=== PATIENT | female | born 1960 | race Caucasian/White ===

== ENCOUNTER 2019-06-13 14:15 | Emergency (ER) | payer MEDICARE, MEDICAID, SELFPAY ==
[2019-06-13 14:15] VITALS: BP 136/74; PULSE 94; RESP 18; TEMP 36.9; O2SAT 98
--- NOTE | 2019-06-13 14:22 | ED.GENADULT ---
HPI - General Adult General Chief complaint: Dizziness Stated complaint: Dizzy Time Seen by Provider: 06/13/19 14:38 Source: patient Mode of arrival: ambulatory Limitations: no limitations History of Present Illness HPI narrative: 58-year-old female patient [facility] with complaints of dizziness for the past 5 days. Patient states that started abruptly when she woke up one morning that she went to go and get out of bed and immediately felt very dizzy. Patient states that she tried to stand up and could not stand up and actually fell back onto her back into the bed. Patient states she actually had to crawl downstairs and call her mother to come and help her get. Patient denies any chest pain at this time but states she has had a little bit of shortness of breath. Patient states that prior to the dizziness starting she was fighting an ear infection and some kind of viral illness that happened a week prior to that has since resolved. Patient states that she also does have a history of bipolar that she is medicated for. Patient states May is usually a hard time for her because it is her daughter's birthday who about 2-1/2 years ago from an overdose. Patient states that she does get pretty depressed in the month of May. Patient denies any other stressors in her life at this time. Patient states that when her parents came over to help her about 5 days ago her dad was told her that this was most likely vertigo and told her to take some motion sickness medication [id number] which she has been taking and states it has not helped at all. Patient denies any vision changes but states that she does feel little bit weaker on her left side than she does on her right side. Related Data Home Medications Medication Instructions Recorded Confirmed atorvastatin 40 mg PO DAILY 06/13/19 06/13/19 bupropion HCl 150 mg PO DAILY 06/13/19 06/13/19 diazepam 5 mg PO BID 06/13/19 06/13/19 divalproex 500 mg PO DAILY 06/13/19 06/13/19 metformin 500 mg PO DAILY 06/13/19 06/13/19 quetiapine 400 mg PO DAILY 06/13/19 06/13/19 zolpidem 10 mg PO DAILY 06/13/19 06/13/19 Allergies Allergy/AdvReac Type Severity Reaction Status Date / Time tramadol Allergy Unknown VOMITING Verified 06/13/19 14:57 Review of Systems Review of Systems: Narrative: CONSTITUTIONAL: Denies fever, chills, or sweats. EYES: Denies visual changes, redness, or discharge. ENT: Denies rhinorrhea, congestion, sore throat, or otalgia. CARDIOVASCULAR: Denies chest pain, palpitations, or edema. RESPIRATORY: Denies cough, positive dyspnea. GASTROINTESTINAL: Denies abdominal pain, nausea, vomiting, or diarrhea. GENITOURINARY: Denies dysuria or hematuria. SKIN: Denies rash or itching. MUSCULOSKELETAL: Denies back pain, joint pain, or myalgia. NEUROLOGIC: Denies headache, numbness, positive weakness to lower extremities, and dizziness. PSYCHIATRIC: Denies anxiety or depression. [facility] Past Medical History Medical History (Updated 06/13/19 @ 14:58 by CECILY Richardson) Anxiety Arthritis Asthma Bipolar 1 disorder Depression GERD (gastroesophageal reflux disease) Hypercholesterolemia Hypertension Liver disease Melena Myocardial infarction 2008 with stent Pneumonia Type 2 diabetes mellitus Surgical History Surgical History (Updated 06/13/19 @ 14:25 by CECILY Richardson) H/O: hysterectomy History of orthopedic surgery Back x2, cervical Family History Family History Mother Patient's mother is in good health Father Patient's father is in good health Social History Social History Smoking status: Former smoker Smoking end date: 05/18/12 Alcohol intake: never Comments At the time of my signature I agree with nursing past medical history, surgical, social, and family history. There is no relevant family history pertinent
--- NOTE | 2019-06-13 14:48 | ECG_ITS ---
Measurements Intervals Celestine Rate: 82 P: 52 NV: 161 QRS: -15 QRSD: 93 T: 79 QT: 381 QTc: 446 Interpretive Statements SINUS RHYTHM DELAYED PRECORDIAL R/S TRANSITION BORDERLINE ST-T WAVE ABNORMALITY- LATERAL LEADS BORDERLINE ECG Electronically Signed On 06-13-2019 15:25:20 [employer] by Brian Man D.O.
[2019-06-13 15:07] VITALS: BP 136/67; PULSE 84; RESP 18; O2SAT 94
--- NOTE | 2019-06-13 15:40 | PC.NURSE ---
1525 awaiting patients daughter to arrive for transport to [facility] ED.
== END 2019-06-13 15:40 | disposition short-term general hospital (02) ==
PROVIDERS: Emergency Provider Nurse Practitioner Family; PCP Internal Medicine
DX: R42 Dizziness and giddiness (principal); F31.9 Bipolar disorder, unspecified; M19.90 Unspecified osteoarthritis, unspecified site; K21.9 Gastro-esophageal reflux disease without esophagitis; E78.00 Pure hypercholesterolemia, unspecified; I10 Essential (primary) hypertension; I25.2 Old myocardial infarction; I25.10 Atherosclerotic heart disease of native coronary artery without angina pectoris; Z95.5 Presence of coronary angioplasty implant and graft; E11.9 Type 2 diabetes mellitus without complications
CPT/HCPCS: 93005; 99213; G0463

== ENCOUNTER 2019-11-04 09:44 | Outpatient (CLI) | payer MEDICARE, MEDICAID, SELFPAY ==
[2019-11-04 10:21] LABS: Basophils Percent Auto 0.4 % (0.2-1.2); Eosinophils Absolute Auto 0.1 K/mm3 (0-0.3); Eosinophils Percent Auto 1.5 % (0-4.4); Hematocrit 39.6 % (37.0-47.0); Hemoglobin 12.4 g/dL (12.0-15.0); Immature Granulocyte Absolute 0.05 K/mm3 (0.00-0.031); Immature Granulocyte Percent A 0.7 % (0-0.5); Lymphocytes Percent Auto 40.8 % (18.3-44.2); Mean Corpuscular HGB Conc 31.3 g/dl (32-36); Mean Corpuscular Hemoglobin 28.1 pg (26-34); Mean Corpuscular Volume 89.6 fl (80-100); Mean Platelet Volume 11.2 fl (7.4-10.4); Monocytes Absolute Auto 0.7 K/mm3 (0.1-0.6); Neutrophils Absolute Auto 3.3 K/mm3 (1.3-6.7); Neutrophils Percent Auto 46.6 % (45.5-73.1); Nucleated Red Blood Cells Perc 0.3 % (0.0-0.2); Platelet Count Result 249 k/mm3 (150-375); Red Blood Count 4.42 M/mm3 (4.2-5.4); Red Cell Distribution Width 14.3 % (11.5-14.5); White Blood Count 7.1 K/mm3 (4.5-10.0)
[2019-11-04 10:27] LABS: Alanine Aminotransferase 37 U/L (4-35); Albumin Level 4.4 g/dL (3.5-5.1); Alkaline Phosphatase 126 U/L (38-126); Aspartate Amino Transferase 47 U/L (14-36); Bilirubin,Total 0.3 mg/dL (0.2-1.3); Blood Urea Nitrogen 11 mg/dL (7-17); Calcium 9.7 mg/dL (8.4-10.2); Carbon Dioxide 32 mmol/L (22-30); Chloride 99 mmol/L (98-107); Estimated Glomerular Filt Rate > 60; Glucose 255 mg/dL (65-105); Potassium 4.4 mmol/L (3.4-5.0); Sodium 133 mmol/L (137-145)
== END 2019-11-04 09:45 | disposition home or self-care (01) ==
LOC: ANHLAB 09:46
PROVIDERS: PCP Internal Medicine; Visit Provider Clinical Nurse Specialist
DX: R74.8 Abnormal levels of other serum enzymes (principal)
CPT/HCPCS: 36415; 80053; 85025

== ENCOUNTER 2020-10-16 16:58 | Emergency (ER) | payer MEDICARE, MEDICAID, SELFPAY ==
[2020-10-16 17:13] VITALS: BP 129/73; PULSE 100; RESP 16; TEMP 36.6; O2SAT 99
--- NOTE | 2020-10-16 17:56 | ED.SKABFB ---
HPI - Skin/Abscess/Foreign Bdy General Chief complaint: Skin/Abscess/Foreign Body Stated complaint: injury Time Seen by Provider: 10/16/20 17:19 Source: patient and RN notes reviewed Mode of arrival: ambulatory Limitations: no limitations History of Present Illness HPI narrative: Patient presents today with a 1 week history of a boil to her right buttock. States she does have a history of boils, but has never had to have one lanced in the past. No history of MRSA. History of diabetes. Currently rates her pain 8/10 and has tried no [id number] interventions prior to arrival. MD complaint: abscess/boil Related Data Home Medications Medication Instructions Recorded Confirmed atorvastatin 40 mg PO DAILY 06/13/19 10/16/20 bupropion HCl 150 mg PO DAILY 06/13/19 10/16/20 diazepam 5 mg PO BID 06/13/19 10/16/20 divalproex 1,000 mg PO HS 06/13/19 10/16/20 zolpidem 10 mg PO DAILY 06/13/19 10/16/20 aspirin 325 mg tablet 325 mg PO DAILY 11/04/19 10/16/20 quetiapine 600 mg PO HS 10/16/20 10/16/20 Allergies Allergy/AdvReac Type Severity Reaction Status Date / Time tramadol Allergy Unknown VOMITING Verified 10/16/20 17:29 Review of Systems Review of Systems: Narrative: CONSTITUTIONAL: Denies body aches, fever, chills, or sweats. EYES: Denies visual changes, redness, or discharge. ENT: Denies rhinorrhea, congestion, sore throat, or otalgia. CARDIOVASCULAR: Denies chest pain, palpitations, or edema. RESPIRATORY: Denies cough or dyspnea. GASTROINTESTINAL: Denies abdominal pain, nausea, vomiting, or diarrhea. GENITOURINARY: Denies dysuria or hematuria. SKIN: Denies rash, itching, or wounds.+ Abscess to right buttock MUSCULOSKELETAL: Denies back pain, joint pain, or myalgia. NEUROLOGIC: Denies headache, numbness, tingling, or weakness. PSYCH: Denies depression or anxiety. [facility] Past Medical History Medical History Anxiety Arthritis Asthma Bipolar 1 disorder Coronary artery disease Depression GERD (gastroesophageal reflux disease) Hypercholesterolemia Hypertension Liver disease Measles Melena Mumps Myocardial infarction 2008 with stent Osteoarthritis Pneumonia Type 2 diabetes mellitus Surgical History Surgical History H/O: section x3 H/O: hysterectomy History of knee surgery History of orthopedic surgery Back x2, cervical Family History Family History Mother Patient's mother is in good health Father Patient's father is in good health Social History Social History Smoking status: Current some day smoker Tobacco type: smokeless tobacco Smoking end date: 05/18/12 Alcohol intake: never Gender identity (if verbalized by the patient): Female Comments At time of signature, I have reviewed and agree with nursing past medical, surgical, social and family history unless otherwise noted. Please see nursing chart for further information. There is no relevant family history pertinent to the presenting complaint Exam Narrative: Exam Narrative: GENERAL: Well-appearing, well-nourished, and in no acute distress. HEAD: Normocephalic, atraumatic. EYES: EOMI. No redness or drainage. Conjunctivae normal. ENT: Mucous membranes pink and moist. NECK: Normal AROM. CHEST: No respiratory distress. EXTREMITIES: Normal range of motion. No edema. SKIN: Warm, dry, no rash. Capillary refill normal. Normal skin turgor. 4 x 3 cm fluctuant abscess to the right medial buttock. There is a pinpoint hole draining purulent discharge. Area is tender to palpation. NEURO: No focal deficits. Alert and oriented x3. Gait steady. PSYCH: Normal affect. No signs of depression or anxiety. Course Vital Signs Vital signs: Vital Signs Temperature 97.9 F 10/16/20 17:13 Pulse
== END 2020-10-16 18:08 | disposition home or self-care (01) ==
PROVIDERS: Emergency Provider Nurse Practitioner
DX: L02.31 Cutaneous abscess of buttock (principal); F17.200 Nicotine dependence, unspecified, uncomplicated; F41.9 Anxiety disorder, unspecified; F32.9 Major depressive disorder, single episode, unspecified; M19.90 Unspecified osteoarthritis, unspecified site; J45.909 Unspecified asthma, uncomplicated; I25.10 Atherosclerotic heart disease of native coronary artery without angina pectoris; K21.9 Gastro-esophageal reflux disease without esophagitis; E78.00 Pure hypercholesterolemia, unspecified; I10 Essential (primary) hypertension; I25.2 Old myocardial infarction; Z95.5 Presence of coronary angioplasty implant and graft; E11.9 Type 2 diabetes mellitus without complications
CPT/HCPCS: 10061; 87070; 87075; 87076; 87205; 99213; G0463

== ENCOUNTER 2020-10-18 16:54 | Emergency (ER) | payer MEDICARE, MEDICAID, SELFPAY ==
[2020-10-18 17:03] VITALS: BP 143/77; PULSE 85; RESP 16; TEMP 36.9; O2SAT 97
--- NOTE | 2020-10-18 17:14 | PC.NURSE ---
unable to urinate at this time. has water and drinking. given spec.collection supplies and will use call button to inform staff when able to obtain ua spec.
--- NOTE | 2020-10-18 17:38 | ED.GENADULT ---
HPI - General Adult General Chief complaint: Urogenital-Female Stated complaint: UTI Time Seen by Provider: 10/18/20 17:39 Source: patient and RN notes reviewed Mode of arrival: ambulatory Limitations: no limitations History of Present Illness HPI narrative: 59-year-old female presents with urinary complaints for 1 day. Jagruti reports increasing symptoms throughout the day. Dysuria consist of bilateral flank pain, pressure, burning, frequency, and urgency.? No treatment.? History of UTIS. Denies E-coli. Denies fever or chills. No significant pelvic pain. No vaginal discharge.? No concerns for STDs. Exacerbating factors urinating.? Denies hematuria or vaginal bleeding. LMP postmenopausal. Denies nausea, vomiting, and abdominal pain.? Tolerating liquids well.? Remains active. The patient reports she have not been diagnosed with COVID-19. The patient reports she received 2 [employer] COVID-19 vaccines. The patient reports she is not waiting for the results of a COVID-19 lab test. The patient reports she do not have weakness or fatigue. The patient reports she do not have a new or worsening cough or shortness of breath. Denies chest pain. The patient reports she do not have any rhinorrhea, congestion, sore throat, loss of taste or smell, and diarrhea. Denies recent traveling. Denies concerns for COVID-19 or exposures. At this time, patient is not suspected of having COVID-19. Some parts of this dictation were generated by voice recognition software and may contain typographical and/or grammatical inaccuracies. Related Data Home Medications Medication Instructions Recorded Confirmed atorvastatin 40 mg PO DAILY 06/13/19 10/16/20 bupropion HCl 150 mg PO DAILY 06/13/19 10/16/20 diazepam 5 mg PO BID 06/13/19 10/16/20 divalproex 1,000 mg PO HS 06/13/19 10/16/20 zolpidem 10 mg PO DAILY 06/13/19 10/16/20 aspirin 325 mg tablet 325 mg PO DAILY 11/04/19 10/16/20 quetiapine 600 mg PO HS 10/16/20 10/16/20 clindamycin HCl 10/18/20 metoprolol tartrate 10/18/20 Allergies Allergy/AdvReac Type Severity Reaction Status Date / Time tramadol Allergy Unknown VOMITING Verified 10/16/20 17:29 Review of Systems Review of Systems: Narrative: CONSTITUTIONAL: Denies fever, chills, sweats. EYES: Denies visual changes, redness, discharge. ENT: Denies rhinorrhea, congestion, sore throat, otalgia. CARDIOVASCULAR: Denies chest pain, palpitations, edema. RESPIRATORY: Denies dyspnea, wheezing, cough. GASTROINTESTINAL: Denies abdominal pain, nausea, vomiting, diarrhea. GENITOURINARY: Complains of dysuria (bilateral flank pain, pressure, burning, frequency, and urgency). Denies hematuria, abnormal discharge. SKIN: Denies rash or itching. MUSCULOSKELETAL: Denies acute back pain, joint pain, or myalgia. NEUROLOGIC: Denies numbness or focal weakness. PSYCHIATRIC: Denies anxiety or depression. All systems reviewed & are unremarkable except as noted in HPI and below. [facility] Past Medical History Medical History Anxiety Arthritis Asthma Bipolar 1 disorder Coronary artery disease Depression GERD (gastroesophageal reflux disease) Hypercholesterolemia Hypertension Liver disease Measles Melena Mumps Myocardial infarction 2008 with stent Osteoarthritis Pneumonia Type 2 diabetes mellitus Surgical History Surgical History H/O: section x3 H/O: hysterectomy History of knee surgery History of orthopedic surgery Back x2, cervical Family History Family History Mother Patient's mother is in good health Father Patient's father is in good health Social History Social History Smoking status: Current some day smoker Tobacco type: smokeless tobacco Smoking end date: 05/18/12 Alcohol intake:
--- NOTE | 2020-10-18 18:19 | PC.NURSE ---
cont. to be unable to urinate.
== END 2020-10-18 18:34 | disposition home or self-care (01) ==
PROVIDERS: Emergency Provider Nurse Practitioner Family; PCP Internal Medicine
DX: R30.0 Dysuria (principal); F17.200 Nicotine dependence, unspecified, uncomplicated; M19.90 Unspecified osteoarthritis, unspecified site; I25.10 Atherosclerotic heart disease of native coronary artery without angina pectoris; K21.9 Gastro-esophageal reflux disease without esophagitis; E78.00 Pure hypercholesterolemia, unspecified; I10 Essential (primary) hypertension; I25.2 Old myocardial infarction; E11.9 Type 2 diabetes mellitus without complications; F41.9 Anxiety disorder, unspecified; F31.9 Bipolar disorder, unspecified
CPT/HCPCS: 81003; 87086; 99213; G0463

== ENCOUNTER 2021-10-29 16:33 | Emergency (ER) | payer MEDICARE, SELFPAY ==
--- NOTE | ~2021-10-29 | XR_ITS ---
EXAMINATION: XR chest 2V DATE: 10/29/2021 17:09 INDICATION: 5 days of cough. Coarse bilateral breath sounds. TECHNIQUE: PA and lateral views of the chest were obtained. COMPARISON: Chest radiograph dated 03/05/2018 FINDINGS: The lungs remain clear with no focal airspace opacities, pulmonary edema, pleural effusion or pneumot horax. Mild cardiomegaly. The central silhouette is normal. Lower cervical anterior spinal fusion wit h interbody bone graft cages and anterior plate and screw fixation. Mild thoracic levocurvature with mild spondylosis. IMPRESSION: 1. Mild cardiomegaly. No acute cardiopulmonary disease. Reviewed, dictated and finalized at location A.
[2021-10-29 16:38] VITALS: BP 152/75; PULSE 86; RESP 16; TEMP 36.2; O2SAT 100
--- NOTE | 2021-10-29 16:53 | ED.URI ---
HPI - URI/Sore Throat General Chief Complaint: Upper Respiratory Infection Stated Complaint: cough/cp/sore throat Time Seen by Provider: 10/29/21 16:54 Source: patient, RN notes reviewed and old records reviewed Mode of arrival: ambulatory Limitations: no limitations History of Present Illness HPI Narrative: 60-year-old female presents to the [facility] with complaints of cough since . Has taken ibuprofen for the chest wall pain. No other treatment, states she does not know what she can take due her to her diabetes. Related Data Home Medications Medication Instructions Recorded Confirmed atorvastatin 40 mg tablet 40 mg PO DAILY 06/13/19 11/06/20 bupropion HCl 150 mg 24 hr tablet, 150 mg PO DAILY 06/13/19 11/06/20 extended release diazepam 5 mg tablet 5 mg PO BID 06/13/19 11/06/20 divalproex 500 mg tablet,extended 1,000 mg PO HS 06/13/19 11/06/20 release 24 hr zolpidem 10 mg tablet 10 mg PO DAILY 06/13/19 11/06/20 aspirin 325 mg tablet 325 mg PO DAILY 11/04/19 11/06/20 quetiapine 300 mg tablet 600 mg PO HS 10/16/20 11/06/20 metoprolol tartrate 25 mg tablet 10/18/20 11/06/20 evolocumab 140 mg/mL subcutaneous syr subcut 10/29/21 syringe (Repatha Syringe) Allergies Allergy/AdvReac Type Severity Reaction Status Date / Time tramadol Allergy Unknown VOMITING Verified 10/16/20 17:29 Review of Systems Review of Systems: All systems reviewed & are unremarkable except as noted in HPI and below Constitutional: Constitutional: Reports no additional constitutional complaints, Denies chills and Denies fever(s) Eyes: Eyes: Reports no additional eye complaints ENT: Reports system reviewed and no additional complaints, except as documented Cardiovascular: Cardiovascular: Reports no additional cardiovascular complaints Respiratory: Respiratory: Reports as per HPI, Reports chest congestion, Reports cough and Reports dyspnea Gastrointestinal: Gastrointestinal: Reports no additional gastrointestinal complaints Musculoskeletal: Musculoskeletal: Reports no additional musculoskeletal complaints Integumentary/Breasts: Skin/Breast: Reports system reviewed and no additional complaints, except as docu Neurologic: Reports system reviewed and no additional complaints, except as documented Psychiatric: Psychiatric: Reports no additional psychiatric complaints Allergic/Immunologic: Allergic/Immunologic: Reports no additional allergic/immunologic complaints PMFSH Past Medical History Medical History Anxiety Arthritis Asthma Bipolar 1 disorder Coronary artery disease Depression GERD (gastroesophageal reflux disease) Hypercholesterolemia Hypertension Liver disease Measles Melena Mumps Myocardial infarction 2009 with stent Obesity Osteoarthritis Pneumonia Type 2 diabetes mellitus Surgical History Surgical History H/O: section x3 H/O: hysterectomy History of knee surgery History of orthopedic surgery Back x2, cervical Family History Family History Mother Patient's mother is in good health Father Patient's father is in good health Social History Social History Smoking status: Never smoker Tobacco type: smokeless tobacco Smoking end date: 05/18/12 Alcohol intake: never Gender identity (if verbalized by the patient): Female Comments At the time of my signature, I reviewed and agree with the nursing past medical, surgical, social, and family history. There is no relevant family history pertinent to the patient complaint. Exam Const: General: healthy appearing, no acute distress and alert Nutritional Appearance: well nourished and obese Orientation/consciousness: patient oriented x3 Limitations: no limitations HENMT: Head: normal to inspection Ears: externa
== END 2021-10-29 17:38 | disposition home or self-care (01) ==
PROVIDERS: Emergency Provider Nurse Practitioner; PCP Internal Medicine
DX: J40 Bronchitis, not specified as acute or chronic (principal); M19.90 Unspecified osteoarthritis, unspecified site; I25.10 Atherosclerotic heart disease of native coronary artery without angina pectoris; K21.9 Gastro-esophageal reflux disease without esophagitis; E78.00 Pure hypercholesterolemia, unspecified; I10 Essential (primary) hypertension; I25.2 Old myocardial infarction; E11.9 Type 2 diabetes mellitus without complications
CPT/HCPCS: 71046; 99213; G0463

== ENCOUNTER 2022-01-09 12:24 | Outpatient (CLI) | payer MEDICARE, MEDICAID, SELFPAY ==
[2022-01-09 18:42] LABS: Basophils Percent Auto 0.3 % (0.2-1.2); Eosinophils Absolute Auto 0.1 K/mm3 (0-0.3); Eosinophils Percent Auto 1.1 % (0-4.4); Hematocrit 37.2 % (37.0-47.0); Hemoglobin 11.4 g/dL (12.0-15.0); Immature Granulocyte Absolute 0.03 K/mm3 (0.00-0.031); Immature Granulocyte Percent A 0.5 % (0-0.5); Lymphocytes Absolute Auto 2.24 K/mm3 (0.9-3.2); Lymphocytes Percent Auto 34.7 % (18.3-44.2); Mean Corpuscular HGB Conc 30.6 g/dl (32-36); Mean Corpuscular Hemoglobin 27.3 pg (26-34); Mean Corpuscular Volume 89.2 fl (80-100); Mean Platelet Volume 11.6 fl (7.4-10.4); Monocytes Absolute Auto 0.5 K/mm3 (0.1-0.6); Neutrophils Absolute Auto 3.6 K/mm3 (1.3-6.7); Neutrophils Percent Auto 55.4 % (45.5-73.1); Platelet Count Result 246 k/mm3 (150-375); Red Blood Count 4.17 M/mm3 (4.2-5.4); White Blood Count 6.5 K/mm3 (4.5-10.0)
[2022-01-09 19:00] LABS: Alanine Aminotransferase 49 U/L (6-35); Alkaline Phosphatase 133 U/L (38-126); Anion Gap 11 mmol/L (8-16); Aspartate Amino Transferase 62 U/L (14-36); Bilirubin,Total 0.2 mg/dL (0.2-1.3); Blood Urea Nitrogen 8 mg/dL (7-17); Calcium 9.1 mg/dL (8.4-10.2); Carbon Dioxide 28 mmol/L (22-30); Chloride 100 mmol/L (98-107); Estimated Glomerular Filt Rate > 60; Glucose 213 mg/dL (65-110); Potassium 4.3 mmol/L (3.4-5.0); Sodium 139 mmol/L (137-145)
[2022-01-09 19:39] LABS: Hemoglobin A1C 7.2 % (<5.7)
== END 2022-01-09 12:25 | disposition home or self-care (01) ==
PROVIDERS: PCP Internal Medicine; Visit Provider Nurse Practitioner
DX: E11.9 Type 2 diabetes mellitus without complications (principal)
CPT/HCPCS: 36415; 80053; 83036; 85025

== ENCOUNTER 2022-02-10 09:57 | Outpatient (CLI) | payer MEDICARE, MEDICAID, SELFPAY ==
--- NOTE | ~2022-02-10 | NM_ITS ---
EXAMINATION: NM meagan stress w perfusion DATE: 02/10/2022 14:30 CDT INDICATION: Dyspnea TECHNIQUE: Rest images were obtained following intravenous administration of 9 mCi Tc99m tetrofosmin (Myoview). The patient was infused intravenously with Lexiscan (regadenoson). Then, 29 mCi Tc99m tetr ofosmin (Myoview) was administered intravenously, and stress images were obtained. Data was reconstru cted into short axis and horizontal and vertical long axis SPECT images. Gated SPECT images were also obtained. COMPARISON: None. FINDINGS: There is no definite reversible or fixed perfusion abnormality to suggest ischemia or infar ction. There is no segmental wall motion abnormality. Left ventricular ejection fraction measures 8 0%. IMPRESSION: 1. No definite ischemia or infarct. 2. Normal left ventricular ejection fraction measuring 80%. Reviewed, dictated and finalized at location B.
--- NOTE | 2022-02-10 10:37 | EST_ITS ---
Patient Info Name: Jagruti Domingo Age: 61 years : 1960 Gender: Female Ht: 64 in Wt: 185 lbs BSA: 1.98 m2 Exam Date: 02/10/2022 11:14 AM Exam Location: [facility] Stress Patient Status: Outpatient Admit Date: 02/10/2022 Staff Ordering Physician: Kayla Murphy NP Attending Provider: Kayla Murphy NP Exercise Technologist: Geena Walters RDCS Nurse: KAYLA FRIAS NP Exam Type: CA stress meagan w NM Study Info Indications R06.02 - Shortness of breath A regadenoson stress test was performed. Summary 1. Normal sinus rhythm, left axis deviation with minor nonspecific T-wave abnormality. 2. No significant ST segment changes following Lexiscan injection. 3. Clinically and electrocardiographically unremarkable Lexiscan stress test. 4. Myocardial perfusion imaging exam to be dictated by Radiology. Protocol: Lexiscan Stress ECG Details Stage: REST Duration (min): 2 min : 12 sec HR (bpm): 70 SBP (mmHg): 137 DBP (mmHg): 73 Stage: REST Duration (min): 4 min : 36 sec HR (bpm): 69 SBP (mmHg): 137 DBP (mmHg): 73 Stage: STAGE 1 Duration (min): 1 min : 0 sec HR (bpm): 86 SBP (mmHg): 130 DBP (mmHg): 84 Stage: RECOVERY Duration (min): 1 min : 0 sec HR (bpm): 91 SBP (mmHg): 130 DBP (mmHg): 84 Stage: RECOVERY Duration (min): 2 min : 0 sec HR (bpm): 83 SBP (mmHg): 130 DBP (mmHg): 84 Stage: RECOVERY Duration (min): 3 min : 0 sec HR (bpm): 82 SBP (mmHg): 140 DBP (mmHg): 77 Stage: RECOVERY Duration (min): 3 min : 3 sec HR (bpm): 82 SBP (mmHg): 140 DBP (mmHg): 77 Rest HR: 69 bpm Peak HR: 92 bpm Rest Sys BP: 137 mmHg Peak Sys BP: 140 mmHg Max Pred HR: 159 bpm % Max Pred HR: 58 % Target HR: 135 bpm Max RPP: 12,880 bpm*mmHg Termination Reason: Completed protocol Cardiac Symptoms: None Total Time: 1 min : 0 sec Rest Solares BP: 73 mmHg Peak Solares BP: 77 mmHg Total Dose: 0.4 mg Resting ECG Normal sinus rhythm, left axis deviation with minor nonspecific T-wave abnormality. Stress ECG No significant ST segment changes following Lexiscan injection. Arrhythmias None. Report Signatures
== END 2022-02-10 09:58 | disposition home or self-care (01) ==
PROVIDERS: PCP Internal Medicine; Visit Provider Nurse Practitioner
DX: R06.09 Other forms of dyspnea (principal)
CPT/HCPCS: 78452; 93017; A9502; J2785

== ENCOUNTER 2022-06-27 15:08 | Outpatient (CLI) | payer MEDICARE, MEDICAID, SELFPAY ==
[2022-06-27 19:45] LABS: Basophils Percent Auto 0.4 % (0.2-1.2); Eosinophils Absolute Auto 0.1 K/mm3 (0-0.3); Hematocrit 37.5 % (37.0-47.0); Hemoglobin 11.7 g/dL (12.0-15.0); Immature Granulocyte Absolute 0.03 K/mm3 (0.00-0.031); Immature Granulocyte Percent A 0.4 % (0-0.5); Lymphocytes Absolute Auto 2.19 K/mm3 (0.9-3.2); Mean Corpuscular HGB Conc 31.2 g/dl (32-36); Mean Corpuscular Hemoglobin 26.9 pg (26-34); Mean Corpuscular Volume 86.2 fl (80-100); Monocytes Absolute Auto 0.6 K/mm3 (0.1-0.6); Monocytes Percent Auto 7.8 % (2.6-8.5); Neutrophils Absolute Auto 4.2 K/mm3 (1.3-6.7); Neutrophils Percent Auto 59.4 % (45.5-73.1); Platelet Count Result 254 k/mm3 (150-375); Red Blood Count 4.35 M/mm3 (4.2-5.4); Red Cell Distribution Width 14.6 % (11.5-14.5); White Blood Count 7.1 K/mm3 (4.5-10.0)
[2022-06-27 19:51] LABS: Alanine Aminotransferase 33 U/L (6-35); Albumin Level 4.3 g/dL (3.5-5.1); Alkaline Phosphatase 102 U/L (38-126); Anion Gap 9 mmol/L (8-16); Aspartate Amino Transferase 49 U/L (14-36); Bilirubin,Total 0.4 mg/dL (0.2-1.3); Blood Urea Nitrogen 9 mg/dL (7-17); Calcium 9.2 mg/dL (8.4-10.2); Carbon Dioxide 32 mmol/L (22-30); Chloride 97 mmol/L (98-107); Cholesterol 149 mg/dL (0-200); Estimated Glomerular Filt Rate > 60; Glucose 178 mg/dL (65-110); HDL Direct 44 mg/dL; Potassium 4.1 mmol/L (3.4-5.0); Sodium 138 mmol/L (137-145); Triglycerides 226 mg/dL (<150)
[2022-06-27 19:58] LABS: Hemoglobin A1C 8.3 % (<5.7)
[2022-06-27 20:02] LABS: LDL Cholesterol Direct 54 mg/dL
[2022-06-27 22:19] LABS: Vitamin D 25 Hydroxy 23.9 ng/mL
== END 2022-06-27 15:09 | disposition home or self-care (01) ==
LOC: ANHGOSHLAB 15:10
PROVIDERS: PCP Internal Medicine; Visit Provider Nurse Practitioner
DX: E11.9 Type 2 diabetes mellitus without complications (principal); E55.9 Vitamin D deficiency, unspecified
CPT/HCPCS: 36415; 80053; 80061; 82306; 83036; 85025

== ENCOUNTER 2022-06-28 13:30 | Outpatient (CLI) | payer MEDICARE, MEDICAID, SELFPAY ==
--- NOTE | ~2022-06-28 | MR_ITS ---
MRI of the brain Clinical History: Blurry vision Technique: Axial and sagittal T1-weighted images were acquired. These were followed by axial T2-weigh hafsa, diffusion weighted, gradient, and FLAIR images. Coronal thin cut T1-weighted and T2-weighted chin ges were performed through the internal auditory canals. Following intravenous administration of 17 c c MultiHance gadolinium, T1-weighted fat-sat imaging was performed through the brain in the axial and planes. Coronal and axial thin cut T1-weighted postcontrast imaging was also performed through the i nternal auditory canals. Findings: No abnormal signal seen in the brain parenchyma. No acute infarct, intracranial hemorrhage, or mass lesion identified. Ventricles and subarachnoid spaces are unremarkable. Orbits are unremarkable. Paranasal sinuses and m astoid air cells are clear. Major intracranial flow voids appear intact. Sagittal midline structures are intact. No abnormal mass lesion identified at the internal auditory canals or cerebellopontine angle regions. No abnormal postcontrast enhancement identified. IMPRESSION: Unremarkable exam. Reviewed, dictated and finalized at location M. [facility] [employer] IMPRESSION: Unremarkable exam.
== END 2022-06-28 13:31 | disposition home or self-care (01) ==
PROVIDERS: PCP Internal Medicine; Visit Provider Nurse Practitioner
DX: R42 Dizziness and giddiness (principal); H53.8 Other visual disturbances; R51.9 Headache, unspecified
CPT/HCPCS: 70553; A9577

== ENCOUNTER 2022-07-28 09:00 | Outpatient (NON) | payer MEDICARE, MEDICAID, SELFPAY | END 2022-07-28 09:01 | disposition home or self-care (01) | PROVIDERS: PCP Internal Medicine; Visit Provider Internal Medicine Gastroenterology | DX: Z12.11 Encounter for screening for malignant neoplasm of colon (principal) | CPT/HCPCS: 88305 ==

== ENCOUNTER 2022-07-28 11:32 | Day surgery (SDC) | payer MEDICARE, MEDICAID, SELFPAY ==
[2022-07-10 11:23] VITALS: BMI 36.0
[2022-07-18 10:52] VITALS: BMI 33.5
[2022-07-28 12:30] VITALS: BP 135/78; PULSE 98; RESP 20; TEMP 36; O2SAT 92
--- NOTE | 2022-07-28 12:41 | WPDANESEPPF ---
Anes - Initial Pre Proc Eval Procedure: Operation Date: 07/28/22 13:30 Proposed Procedures p Screening Colonoscopy - Wali Urrutia MD Date/Time: 07/28/22 12:41 Surgeon: Wali Urrutia MD Pre Op Diagnosis: Neoplasm Screening Patient Data Age: 61 Gender: F Height: 1.6 m Weight: 90.3 kg Last Vital Signs Temp 36.0 C L 07/28/22 12:30 Pulse 98 07/28/22 12:30 Resp 20 07/28/22 12:30 BP 135/78 07/28/22 12:30 Pulse Ox 92 07/28/22 12:30 O2 Del Method Room Air 07/28/22 12:30 Allergies Allergy/AdvReac Type Severity Reaction Status Date / Time tramadol Allergy Unknown Itching Verified 07/28/22 12:30 Home Medications Medication Instructions Recorded Confirmed Type atorvastatin 40 mg tablet 40 mg PO DAILY 06/13/19 07/28/22 History bupropion HCl 150 mg 24 hr tablet, 150 mg PO DAILY 06/13/19 07/28/22 History extended release diazepam 5 mg tablet 5 mg PO BID 06/13/19 07/28/22 History divalproex 500 mg tablet,extended 1,000 mg PO HS 06/13/19 07/28/22 History release 24 hr zolpidem 10 mg tablet 10 mg PO DAILY 06/13/19 07/28/22 History metoprolol tartrate 25 mg tablet 25 mg PO DAILY 10/18/20 07/28/22 History inhalational spacing device (Space #1 ea 10/29/21 07/28/22 Rx Chamber) albuterol sulfate 90 mcg/actuation 2 puff inhalation QID PRN 12/27/21 07/28/22 Rx aerosol inhaler shortness of breath or wheezing #6.7 grams omeprazole 40 mg capsule,delayed See Rx Instructions .Route 01/09/22 07/28/22 Rx release .COMPLEX #90 caps quetiapine 400 mg tablet 400 mg PO QHS 01/09/22 07/28/22 History aspirin 81 mg tablet,delayed 81 mg PO DAILY 07/08/22 07/28/22 History release (Adult Low Dose Aspirin) mirabegron 25 mg tablet,extended 25 mg PO DAILY #30 tabs 07/08/22 07/28/22 Rx release 24 hr (Myrbetriq) sodium,potassium,mag sulfates 17.5 See Rx Instructions PO .COMPLEX 07/10/22 07/28/22 Rx gram-3.13 gram-1.6 gram oral soln #354 mL (Suprep Bowel Prep Kit) metformin 1,000 mg tablet See Rx Instructions .Route 07/16/22 07/28/22 Rx .COMPLEX #180 tabs Patient hx anesthesia problems: none Family hx anesthesia problems: none Results Review: All pre-operative results and documents have been reviewed as part of the pre-operative evaluation. [facility] Past Medical History Medical History (Updated 07/08/22 @ 14:48 by Martha Murphy NP) Anxiety Arthritis Asthma Bipolar 1 disorder Coronary artery disease Depression GERD (gastroesophageal reflux disease) Hypercholesterolemia Hypertension Liver disease Measles Melena Mumps Myocardial infarction 2008 with stent Obesity Osteoarthritis Pneumonia Type 2 diabetes mellitus Surgical History Surgical History H/O: section x3 H/O: hysterectomy History of knee surgery History of orthopedic surgery Back x2, cervical Family History Family History Mother Patient's mother is in good health Father Patient's father is in good health Social History Social History (Updated 07/08/22 @ 14:15 by Lacy Garcia [facility]) Smoking status: Current every day smoker Tobacco type: e-cigarettes/vaping Smoking end date: 05/18/12 Additional smoking assessment comments: vape may contain nicotine per patient Alcohol intake: never Substance use: never Substance use type: does not use Lack of Transportation: No Lack of Food: Never True Current Housing: I Have Housing Concerned About Future Housing: No Difficulty Paying Gas/Electric Bills: No Difficulty Paying for Meds: No Currently Unemployed: No Education: High School Diploma/GED Difficulty w/ Childcare or Family Care: No Living arrangements: alone Gender identity (if verbalized by the patient): Female Spiritual care concerns: No Anes - Eval Final PreProcedure Day of Procedure 07/28/22 12:41 Patient weight: obese Heart: re
[2022-07-28] MEDS: LACTATED RINGERS 1,000 ML 150 ML IV CONT (12:47)
--- NOTE | 2022-07-28 12:47 | PM.HPGS ---
History of Present Illness History of Present Illness Consent: Risks, benefits, and alternatives have been discussed and questions answered. Patient agrees to proceed with procedure. Chief complaint: Neoplasm Screening Narrative: Jagruti Domingo is a 61 year old female Presents for screening colonoscopy. Patient's current weight appetite and bowel movements are normal. Patient denies abdominal pain. She has had no bleeding. Family history is noncontributory. Previous colonoscopy more than 5 years ago was reported to be unremarkable. Review of Systems Review of Systems: Review of systems noncontributory. [facility] Past Medical History Medical History (Updated 07/08/22 @ 14:48 by Martha Murphy NP) Anxiety Arthritis Asthma Bipolar 1 disorder Coronary artery disease Depression GERD (gastroesophageal reflux disease) Hypercholesterolemia Hypertension Liver disease Measles Melena Mumps Myocardial infarction 2008 with stent Obesity Osteoarthritis Pneumonia Type 2 diabetes mellitus Surgical History Surgical History H/O: section x3 H/O: hysterectomy History of knee surgery History of orthopedic surgery Back x2, cervical Family History Family History Mother Patient's mother is in good health Father Patient's father is in good health Social History Social History (Updated 07/08/22 @ 14:15 by Lacy Garcia [facility]) Smoking status: Current every day smoker Tobacco type: e-cigarettes/vaping Smoking end date: 05/18/12 Additional smoking assessment comments: vape may contain nicotine per patient Alcohol intake: never Substance use: never Substance use type: does not use Lack of Transportation: No Lack of Food: Never True Current Housing: I Have Housing Concerned About Future Housing: No Difficulty Paying Gas/Electric Bills: No Difficulty Paying for Meds: No Currently Unemployed: No Education: High School Diploma/GED Difficulty w/ Childcare or Family Care: No Living arrangements: alone Gender identity (if verbalized by the patient): Female Spiritual care concerns: No Meds Home Medications and Allergies Home Medications Medication Instructions Recorded Confirmed Type atorvastatin 40 mg tablet 40 mg PO DAILY 06/13/19 07/28/22 History bupropion HCl 150 mg 24 hr tablet, 150 mg PO DAILY 06/13/19 07/28/22 History extended release diazepam 5 mg tablet 5 mg PO BID 06/13/19 07/28/22 History divalproex 500 mg tablet,extended 1,000 mg PO HS 06/13/19 07/28/22 History release 24 hr zolpidem 10 mg tablet 10 mg PO DAILY 06/13/19 07/28/22 History metoprolol tartrate 25 mg tablet 25 mg PO DAILY 10/18/20 07/28/22 History inhalational spacing device (Space #1 ea 10/29/21 07/28/22 Rx Chamber) albuterol sulfate 90 mcg/actuation 2 puff inhalation QID PRN 12/27/21 07/28/22 Rx aerosol inhaler shortness of breath or wheezing #6.7 grams omeprazole 40 mg capsule,delayed See Rx Instructions .Route 01/09/22 07/28/22 Rx release .COMPLEX #90 caps quetiapine 400 mg tablet 400 mg PO QHS 01/09/22 07/28/22 History aspirin 81 mg tablet,delayed 81 mg PO DAILY 07/08/22 07/28/22 History release (Adult Low Dose Aspirin) mirabegron 25 mg tablet,extended 25 mg PO DAILY #30 tabs 07/08/22 07/28/22 Rx release 24 hr (Myrbetriq) sodium,potassium,mag sulfates 17.5 See Rx Instructions PO .COMPLEX 07/10/22 07/28/22 Rx gram-3.13 gram-1.6 gram oral soln #354 mL (Suprep Bowel Prep Kit) metformin 1,000 mg tablet See Rx Instructions .Route 07/16/22 07/28/22 Rx .COMPLEX #180 tabs Allergies Allergy/AdvReac Type Severity Reaction Status Date / Time tramadol Allergy Unknown Itching Verified 07/28/22 12:30 Vital Signs Vital Signs - 24 hr 07/28/22 12:30 Temperature 96.8 F L Pulse Rate 98 Respiratory Rate 20 Blood Pressure 135/78 Pulse Oximetry
[2022-07-28 12:48] LABS: Glucose Point of Care 159 mg/dl (65-105)
[2022-07-28 14:52] VITALS: BP 125/63; PULSE 96; RESP 15; O2SAT 96
[2022-07-28 15:02] VITALS: BP 155/90; PULSE 87; RESP 14; O2SAT 100
[2022-07-28 15:12] VITALS: BP 145/85; PULSE 74; RESP 16; O2SAT 100
--- NOTE | 2022-07-28 15:37 | WPDANESPN ---
Anes - Prog Note Post-Op Date/Time: 07/28/22 15:37 Cardiovascular status: normal Respiratory status: normal Airway patency: baseline Mental status: baseline Post-Op hydration status: normal Vital Signs: Last Vital Signs Temp 36.0 C L 07/28/22 12:30 Pulse 74 07/28/22 15:12 Resp 16 07/28/22 15:12 BP 145/85 H 07/28/22 15:12 Pulse Ox 100 07/28/22 15:12 O2 Del Method Room Air 07/28/22 15:12 Pain Score (VAS): 0 I/O: Intake & Output 07/27/22 07/28/22 07/28/22 23:59 07:59 15:59 Intake Total 400 Balance 400 07/28/22 12:44 POC Capillary Glucose 159 H Post-procedural complaints: none Patient Feedback: Patient satisfied with anesthetic care.
== END 2022-07-28 15:30 | disposition home or self-care (01) ==
PROVIDERS: PCP Internal Medicine; Visit Provider Internal Medicine Gastroenterology
PROC: 0DJD8ZZ Inspection of Lower Intestinal Tract, Via Natural or Artificial Opening Endoscopic (ICD-10-PCS; CPT 45378; principal; 2022-07-28 13:30)
DX: Z12.11 Encounter for screening for malignant neoplasm of colon (principal)
CPT/HCPCS: 45385

== ENCOUNTER 2022-11-05 16:19 | Outpatient (CLI) | payer MEDICARE, MEDICAID, SELFPAY ==
--- NOTE | ~2022-11-05 | XR_ITS ---
Cervical Spine: AP, lateral, open-mouth views Clinical History: Radiculopathy Findings: The normal lordotic curve is maintained. No fracture or subluxation seen. There is anterior fusion from C5 to C6, with fusion across the relevant disc space. Pre-vertebral soft tissues are unr emarkable. Impression: Anterior fusion from C5 to C6. Reviewed, dictated and finalized at location . Impression: Anterior fusion from C5 to C6.
--- NOTE | ~2022-11-05 | XR_ITS ---
Lumbosacral Spine: AP and lateral views Clinical History: Pain Findings: The normal lordotic curve is maintained. The vertebral bodies and posterior elements are i ntact. There are mild degenerative disc changes at L4-L5 and L5-S1. There is advanced facet arthropat hy at L4-L5 and L5-S1. The sacroiliac joints are normally outlined. Impression: [id number] degenerative spondylosis at L4-L5 and L5-S1, as detailed above. Reviewed, dictated and finalized at location M. Impression: [id number] degenerative spondylosis at L4-L5 and L5-S1, as detailed above .
== END 2022-11-05 16:20 | disposition home or self-care (01) ==
PROVIDERS: PCP Internal Medicine; Visit Provider Nurse Practitioner
DX: M54.12 Radiculopathy, cervical region (principal); R20.0 Anesthesia of skin; R20.2 Paresthesia of skin; M47.896 Other spondylosis, lumbar region; M47.897 Other spondylosis, lumbosacral region; Z98.1 Arthrodesis status
CPT/HCPCS: 72040; 72100

== ENCOUNTER 2023-02-17 16:53 | Outpatient (CLI) | payer MEDICARE, MEDICAID, SELFPAY ==
--- NOTE | ~2023-02-17 | MR_ITS ---
MRI of the lumbar spine Clinical History: Back pain Technique: Axial T2-weighted images, and sagittal T1-weighted, T2-weighted, and T2 fat-sat images wer e acquired. COMPARISON: 05/24/2015 Findings: No fracture identified. Minimal grade 1 retrolisthesis of L5 over S1 present. Osseous align ment is essentially unchanged. No suspicious bone marrow signal abnormality seen. At L1-L2, there is minimal disc bulge and mild facet arthropathy. No central canal stenosis or neural foraminal narrowing. At L2-L3, there is no significant disc bulge or herniation. There is minimal facet arthropathy. No ce ntral canal stenosis or neural foraminal narrowing. At L3-L4, there is mild disc bulge and mild facet arthropathy. There is minimal effacement of the j carlos tral thecal sac. Bilateral neural foramina are preserved. At L4-L5, there is mild disc bulge and moderate facet arthropathy. No central canal stenosis or neura l foraminal narrowing. At L5-S1, there is advanced degenerative disc narrowing. There is disc osteophyte complex and mild to moderate facet arthropathy. No central canal stenosis. There is focal severe right neural foraminal narrowing. Left neural foramen preserved. Impression: Focal severe right neural foraminal narrowing at L5-S1. Additional mild degenerative changes, as above. Minimal grade 1 retrolisthesis of L5 over S1, unchanged. Reviewed, dictated and finalized at [facility]. Impression: Focal severe right neural foraminal narrowing at L5-S1. Additional mild degenerative changes, as above. Minimal grade 1 retrolisthesis of L5 over S1, unchanged.
== END 2023-02-17 16:54 | disposition home or self-care (01) ==
PROVIDERS: PCP Internal Medicine; Visit Provider Anesthesiology Pain Medicine
DX: M54.17 Radiculopathy, lumbosacral region (principal); M96.1 Postlaminectomy syndrome, not elsewhere classified; M46.1 Sacroiliitis, not elsewhere classified; M47.817 Spondylosis without myelopathy or radiculopathy, lumbosacral region; G89.29 Other chronic pain; M51.36 Other intervertebral disc degeneration, lumbar region
CPT/HCPCS: 72148

== ENCOUNTER 2023-05-13 14:55 | Outpatient (CLI) | payer MEDICARE, MEDICAID, SELFPAY ==
[2023-05-13 19:15] LABS: Alanine Aminotransferase 51 U/L (6-35); Albumin Level 4.4 g/dL (3.5-5.1); Alkaline Phosphatase 141 U/L (38-126); Anion Gap 12 mmol/L (8-16); Aspartate Amino Transferase 119 U/L (14-36); Bilirubin,Total 0.4 mg/dL (0.2-1.3); Blood Urea Nitrogen 13 mg/dL (7-17); Calcium 9.7 mg/dL (8.4-10.2); Carbon Dioxide 29 mmol/L (22-30); Chloride 101 mmol/L (98-107); Estimated Glomerular Filt Rate > 60; Glucose 81 mg/dL (65-110); Potassium 4.2 mmol/L (3.4-5.0); Sodium 142 mmol/L (137-145)
[2023-05-13 19:17] LABS: Basophils Percent Auto 0.5 % (0.2-1.2); Eosinophils Absolute Auto 0.1 K/mm3 (0-0.3); Eosinophils Percent Auto 0.7 % (0-4.4); Hematocrit 39.9 % (37.0-47.0); Hemoglobin 12.1 g/dL (12.0-15.0); Immature Granulocyte Absolute 0.07 K/mm3 (0.00-0.031); Immature Granulocyte Percent A 0.8 % (0-0.5); Lymphocytes Absolute Auto 2.55 K/mm3 (0.9-3.2); Lymphocytes Percent Auto 29.7 % (18.3-44.2); Mean Corpuscular HGB Conc 30.3 g/dl (32-36); Mean Corpuscular Hemoglobin 26.4 pg (26-34); Mean Corpuscular Volume 87.1 fl (80-100); Mean Platelet Volume 11.7 fl (7.4-10.4); Monocytes Absolute Auto 0.7 K/mm3 (0.1-0.6); Monocytes Percent Auto 8.5 % (2.6-8.5); Neutrophils Absolute Auto 5.1 K/mm3 (1.3-6.7); Neutrophils Percent Auto 59.8 % (45.5-73.1); Platelet Count Result 266 k/mm3 (150-375); Red Blood Count 4.58 M/mm3 (4.2-5.4); Red Cell Distribution Width 15.7 % (11.5-14.5); White Blood Count 8.6 K/mm3 (4.5-10.0)
[2023-05-13 20:07] LABS: Hemoglobin A1C 6.6 % (<5.7)
== END 2023-05-13 14:56 | disposition home or self-care (01) ==
LOC: ANHGOSHLAB 14:57
PROVIDERS: PCP Internal Medicine; Visit Provider Nurse Practitioner
DX: E11.9 Type 2 diabetes mellitus without complications (principal)
CPT/HCPCS: 36415; 80053; 83036; 85025

== ENCOUNTER 2023-05-14 14:43 | Outpatient (CLI) | payer MEDICARE, MEDICAID, SELFPAY ==
[2023-05-14 20:25] LABS: Iron 83 ug/dL (37-170)
[2023-05-14 20:44] LABS: Percent Iron Saturation 16 % (20-50)
[2023-05-14 20:45] LABS: Hepatitis B Surface Antigen Negative (Negative)
[2023-05-14 20:52] LABS: HIV 1/2 Ab P24 Ag Result Negative (Negative)
[2023-05-14 21:02] LABS: Hepatitis C Virus Antibody Negative (Negative)
[2023-05-18 09:27] LABS: Immunoglobulin A 343 mg/dL (70-320); TTG IGA AB <1.0 U/mL (<15.0)
== END 2023-05-14 14:44 | disposition home or self-care (01) ==
LOC: ANHGOSHLAB 14:45
PROVIDERS: PCP Internal Medicine; Visit Provider Nurse Practitioner
DX: R74.01 Elevation of levels of liver transaminase levels (principal); E11.9 Type 2 diabetes mellitus without complications
CPT/HCPCS: 36415; 82784; 83540; 83550; 84443; 86364; 86703; 86803; 87340; G0432

== ENCOUNTER 2023-07-01 14:16 | Outpatient (CLI) | payer MEDICARE, MEDICAID, SELFPAY ==
--- NOTE | ~2023-07-01 | US_ITS ---
EXAMINATION: US aorta DATE: 07/01/2023 15:17 INDICATION: Abdominal aortic aneurysm screening with risk factors of prior smoking and family member with abdominal aortic aneurysm TECHNIQUE: Grayscale, color Doppler, and pulsed Doppler images of the aorta and common iliac arteries were obtained. COMPARISON: None. FINDINGS: The proximal aorta measures 2.6 cm. The mid aorta measures 2.1 cm. The distal aorta measures 1.7 cm. The right common iliac artery measures 7 mm. The left common iliac artery measures 7 mm. IMPRESSION: 1. Normal caliber abdominal aorta. Reviewed, dictated and finalized at location A. [employer]
--- NOTE | ~2023-07-01 | US_ITS ---
EXAMINATION: US abdomen limited DATE: 07/01/2023 15:17 INDICATION: Elevated liver enzymes TECHNIQUE: Multiple grayscale and Doppler ultrasound images of the abdomen were obtained. COMPARISON: CT dated 09/10/2010 FINDINGS: The pancreas is normal. The visualized proximal inferior vena cava and abdominal aorta are normal. Li stacey has normal echogenicity and contour, with a smooth surface. No liver lesion identified. No intrah epatic biliary duct dilation suspected. Portal venous flow was seen in the hepatopetal, normal direct ion and has normal Doppler waveform. The gallbladder is normal in appearance. There is no cholelithi asis. The common bile duct measures 5 mm, which is normal. Sonographic Silver sign was reported as ne gative by the driver salesman.Visualized portions of the right kidney demonstrates normal echogenicity an d contour with no hydronephrosis. IMPRESSION: 1. Normal right upper quadrant ultrasound. Reviewed, dictated and finalized at location A. HAND
== END 2023-07-01 14:17 | disposition home or self-care (01) ==
PROVIDERS: PCP Internal Medicine; Visit Provider Nurse Practitioner
DX: R74.01 Elevation of levels of liver transaminase levels (principal); Z82.49 Family history of ischemic heart disease and other diseases of the circulatory system
CPT/HCPCS: 76705; 76775

== ENCOUNTER 2024-03-15 13:52 | Outpatient (CLI) | payer MEDICARE, MEDICAID, SELFPAY ==
[2024-03-15 20:45] LABS: Basophils Percent Auto 0.4 % (0.2-1.2); Eosinophils Absolute Auto 0.1 K/mm3 (0-0.3); Eosinophils Percent Auto 1.4 % (0-4.4); Hematocrit 36.8 % (37.0-47.0); Hemoglobin 11.1 g/dL (12.0-15.0); Immature Granulocyte Absolute 0.05 K/mm3 (0.00-0.031); Immature Granulocyte Percent A 0.6 % (0-0.5); Lymphocytes Absolute Auto 2.48 K/mm3 (0.9-3.2); Lymphocytes Percent Auto 29.6 % (18.3-44.2); Mean Corpuscular HGB Conc 30.2 g/dl (32-36); Mean Corpuscular Volume 86.2 fl (80-100); Mean Platelet Volume 12.2 fl (7.4-10.4); Monocytes Absolute Auto 0.8 K/mm3 (0.1-0.6); Monocytes Percent Auto 9.3 % (2.6-8.5); Neutrophils Absolute Auto 4.9 K/mm3 (1.3-6.7); Neutrophils Percent Auto 58.7 % (45.5-73.1); Platelet Count Result 249 k/mm3 (150-375); Red Blood Count 4.27 M/mm3 (4.2-5.4); White Blood Count 8.4 K/mm3 (4.5-10.0)
[2024-03-15 22:04] LABS: Hemoglobin A1C 7.8 % (<5.7)
[2024-03-15 22:24] LABS: Alanine Aminotransferase 34 U/L (6-35); Albumin Level 4.3 g/dL (3.5-5.1); Alkaline Phosphatase 135 U/L (38-126); Anion Gap 10 mmol/L (4-12); Aspartate Amino Transferase 57 U/L (14-36); Bilirubin,Total 0.3 mg/dL (0.2-1.3); Blood Urea Nitrogen 14 mg/dL (7-17); Calcium 9.8 mg/dL (8.4-10.2); Carbon Dioxide 31 mmol/L (22-30); Chloride 101 mmol/L (98-107); Estimated Glomerular Filt Rate > 60; Glucose 148 mg/dL (65-110); Potassium 4.6 mmol/L (3.4-5.0); Sodium 142 mmol/L (137-145)
[2024-03-16 07:42] LABS: Folic Acid 7.4 ng/mL (2.76->20)
[2024-03-16 08:46] LABS: Vitamin D 25 Hydroxy 18.9 ng/mL
== END 2024-03-15 13:53 | disposition home or self-care (01) ==
PROVIDERS: PCP Nurse Practitioner; Visit Provider Nurse Practitioner
DX: R41.3 Other amnesia (principal); E11.9 Type 2 diabetes mellitus without complications; E55.9 Vitamin D deficiency, unspecified
CPT/HCPCS: 36415; 80053; 82306; 82607; 82746; 83036; 84443; 85025

== ENCOUNTER 2024-04-18 13:40 | Observation (INO) | payer MEDICARE, MEDICAID, SELFPAY ==
[2024-04-18] VITALS (23 sets, daily range): BP systolic 120–180; BP diastolic 52–105; PULSE 74–105; RESP 14–23; TEMP 36.3–36.9; O2SAT 92–98
--- NOTE | ~2024-04-18 | CT_ITS ---
EXAMINATION: CTA chest PE protocol DATE: 04/18/2024 14:49 INDICATION: Shortness of breath. Chest pain. TECHNIQUE: Computed tomography angiography (CTA) of the chest was performed with 100 mL Omnipaque-350 intravenous contrast timed to evaluate the pulmonary arteries. Coronal maximum intensity projection 3D-reconstructions were created by the technologist. Automated exposure control and iterative reconst ruction technique were employed. The dose-length product was 482.89 mGy-cm. COMPARISON: Chest CT 11/26/2012 FINDINGS: There is mild emphysema. There is mild atelectasis bilaterally. There are trace bilateral p leural effusions. The heart size is normal. There are coronary artery calcifications. No pericardial effusion. There is a large volume of material in the esophagus. There is no pulmonary embolus. There is mild thoracic spondylosis. There are changes of anterior fusion procedure in cervical spine. IMPRESSION: 1. No pulmonary embolus. 2. Large volume of material in the esophagus, which may be secondary to dysmotility or distal strictu re. 3. Mild emphysema. Reviewed, dictated and finalized at location A. ER ACCOUNTS INVESTIGATOR IMPRESSION: 1. No pulmonary embolus. 2. Large volume of material in the esophagus, which may be secondary to dysmoti lity or distal stricture. 3. Mild emphysema.
--- NOTE | ~2024-04-18 | XR_ITS ---
EXAMINATION: XR chest 2V DATE: 04/18/2024 15:24 INDICATION: Chest pain. Nausea. TECHNIQUE: Frontal and lateral views of the chest were obtained. COMPARISON: Chest 2 views 10/29/2021 FINDINGS: There is no pneumonia, pleural effusion, or pneumothorax. The heart size is normal. There a re changes of anterior fusion procedure in cervical spine. IMPRESSION: 1. No acute cardiopulmonary disease. Reviewed, dictated and finalized at location A. HER PRODUCTS SUPERVISOR
--- NOTE | ~2024-04-18 | CT_ITS ---
[facility] tiss [facility] Ordering provider: Anirudh Garcia MD History: 63 years Female with . r/o subcutaneous emphysema (post EGD) . Comparison: None. Technique: CT soft tissues neck was performed without contrast. . Automated exposure control and ite rative reconstruction technique were employed. The dose-length product was 1526.89 mGy-cm. Findings: LOWER HEAD: The visualized brain parenchyma, optic globes/orbits and mastoids are normal. The visua lized paranasal sinuses are well aerated. SALIVARY GLANDS: Fat infiltration. THYROID: Normal. SUPRAHYOID DEEP SPACES: Normal. CAROTID ARTERIES: Atherosclerotic changes. JUGULAR VEINS: Normal. TONSILS: Normal. ORAL CAVITY: normal as visualized. PHARYNX, LARYNX AND TRACHEA: Patent and normal. No prevertebral soft tissue swelling. SUPERFICIAL SOFT TISSUES: Normal. No lymphadenopathy or neck mass. No definite air seen in the subcut aneous tissues. SKELETAL: Postoperative changes in the lower cervical area. Age appropriate degenerative changes. IMPRESSION: 1. Fat infiltration in the salivary glands. Otherwise, No definite abnormality seen in the neck. No definite free air is seen in the subcutaneous tissues CT soft tiss neck [facility] Ordering provider: Anirudh Garcia MD History: . r/o subcutaneous emphysema (post EGD) . Comparison: None. Technique: CT chest without IV contrast. CT abdomen and pelvis without oral and IV contrast. FINDINGS: The study is limited due to lack of IV contrast. CHEST: --VISUALIZED THORACIC INLET: Normal as visualized. --MEDIASTINUM: Aorta/coronary arteries: Mild atheromatous disease. Heart/other: The heart is not enlarged. Trace of pericardial effusion. Lymph nodes: No mediastinal or hilar adenopathy. No evidence of air is seen around the esophagus. If still Clinically suspicious further evaluation advised. --LUNGS: Atelectasis versus pneumonia seen in the posterior right lower lobe and left lower lobe. Fol low-up to resolution advised. No pulmonary nodules or masses. Minimal right effusion. No pneumothorax . --MUSCULOSKELETAL: Soft tissues: The superficial soft tissues are normal. Bones: Age appropriate degenerative changes of the spine. ABDOMEN/PELVIS: --MUSCULOSKELETAL: Bones: Age appropriate degenerative changes of the spine. Superficial soft tissues: The superficial soft tissues are normal. --UPPER ABDOMINAL ORGANS: Liver: Hepatomegaly. Gallbladder: Distended gallbladder with stones. Spleen: Normal. Stomach/duodenum: Small sliding hiatus hernia. Pancreas: Normal. Adrenals: Normal. Kidneys: Residual contrast seen in the urinary bladder and both pelvicalyceal systems. Tiny stone in the left kidney mid pole. Small hypodensity seen medially in the left kidney upper pole which may be a small cyst. Ultrasound evaluation advised. --PELVIC ORGANS: The bladder is partly demonstrated with residual contrast noted.. --BOWEL AND MESENTERY: Colon: No diverticulitis seen in the visualized bowel.. Appendix is not demonstrated. Small Bowel: Normal. No obstruction. Peritoneum/mesentery: No free air or free fluid. No mesenteric lymphadenopathy. --RETROPERITONEUM: Mild atheromatous disease of the abdominal aorta. No retroperitoneal lymphadenop athy. IMPRESSION: CHEST: 1. Bilateral basal atelectasis versus pneumonia more on the right side with minimal effusion. Follow -up to resolution advised. 2. No evidence of pneumothorax seen. No area in the mediastinum. If still suspicious about esophagea l perforation. Further evaluation with Gastrografin swallow. 3. Minimal pericardial effusion. ABDOMEN/PELVIS: 1. No acute abdominal process. 2. Distended gallbladder with cholelithiasis. 3. Tiny stone in the left kidney mid pole. Tiny hypodensity seen medially in the left kidney. 4. Hepatomegaly. Reviewed, dictated and finalized at location A. SERVICE ASSISTANT IMPRESSION: 1. Fat infiltration in the salivary glands. Otherwise, No definite abnormality seen in the neck. No definite free air is seen in the subcutaneous tissues CT soft tiss neck chst ab wo Ordering provider: Anirudh Garcia MD History: . r/o subcutaneous emphysema (post EGD) . Comparison: None. Technique: CT chest without IV contrast. CT abdomen and pelvis without oral and IV contrast. FINDINGS: The study is limited due to lack of IV contrast. CHEST: --VISUALIZED THORACIC INLET: Normal as visualized. --MEDIASTINUM: Aorta/coronary arteries: Mild atheromatous disease. Heart/other: The heart is not enlarged. Trace of pericardial effusion. Lymph nodes: No mediastinal or hilar adenopathy. No evidence of air is seen around the esophagus. If still Clinically suspicious further evaluation advised. --LUNGS: Atelectasis versus pneumonia seen in the posterior right lower lobe an d left lower lobe. Follow-up to resolution advised. No pulmonary nodules or mas ses. Minimal right effusion. No pneumothorax. --MUSCULOSKELETAL: Soft tissues: The superficial soft tissues are normal. Bones: Age appropriate degenerative changes of the spine. ABDOMEN/PELVIS: --MUSCULOSKELETAL: Bones: Age appropriate degenerative changes of the spine. Superficial soft tissues: The superficial soft tissues are normal. --UPPER ABDOMINAL ORGANS: Liver: Hepatomegaly. Gallbladder: Distended gallbladder with stones. Spleen: Normal. Stomach/duodenum: Small sliding hiatus hernia. Pancreas: Normal. Adrenals: Normal. Kidneys: Residual contrast seen in the urinary bladder and both pelvicalyceal s ystems. Tiny stone in the left kidney mid pole. Small hypodensity seen medially in the left kidney upper pole which may be a small cyst. Ultrasound evaluation advised. --PELVIC ORGANS: The bladder is partly demonstrated with residual contrast note d.. --BOWEL AND MESENTERY: Colon: No diverticulitis seen in the visualized bowel.. Appendix is not demonst rated. Small Bowel: Normal. No obstruction. Peritoneum/mesentery: No free air or free fluid. No mesenteric lymphadenopathy. --RETROPERITONEUM: Mild atheromatous disease of the abdominal aorta. No retro peritoneal lymphadenopathy. IMPRESSION: CHEST: 1. Bilateral basal atelectasis versus pneumonia more on the right side with mi nimal effusion. Follow-up to resolution advised. 2. No evidence of pneumothorax seen. No area in the mediastinum. If still susp icious about esophageal perforation. Further evaluation with Gastrografin swall ow. 3. Minimal pericardial effusion. ABDOMEN/PELVIS: 1. No acute abdominal process. 2. Distended gallbladder with cholelithiasis. 3. Tiny stone in the left kidney mid pole. Tiny hypodensity seen medially in t he left kidney. 4. Hepatomegaly.
--- NOTE | 2024-04-18 13:42 | ECG_ITS ---
Test Date: 2024-04-18 13:55:16 Measurements Intervals [place] Rate: 84 P: 65 UT: 146 QRS: -25 QRSD: 97 T: 78 QT: 369 QTc: 437 Interpretive Statements SINUS RHYTHM BORDERLINE LEFT AXIS DEVIATION [QRS AXIS < -20] NONSPECIFIC ST & T-WAVE ABNORMALITY No previous ECG available for comparison Electronically Signed On 04-18-2024 14:31:14 [employer] by Dinh Atwood M.D.
--- NOTE | 2024-04-18 13:57 | ED_ITS ---
HPI - Chest Pain General Chief Complaint: Chest Pain <Jillian Chew APRN - Last Filed: 04/18/24 14:02> Stated Complaint: epigastric pain that radiates to back/SOB <Jillian Chew APRN - Last Filed: 04/18/24 14:02> Time Seen by Provider: 04/18/24 13:40 <Jillian Chew APRN - Last Filed: 04/18/24 14:02> Focused HPI: Patient is a 63-year-old female who presents to the ER with midsternal chest pain. She reports the chest pain radiates from her chest around to her back in a band. She denies any cough and fever, but endorses shortness of breath. Patient also endorses recent emesis. She endorses a history of diabetes, high cholesterol and GERD. GENERAL: Well-appearing, well-nourished, and in mild respiratory distress. HEAD: Normocephalic, atraumatic. CHEST: Clear to auscultation. ?Mild respiratory distress. Diminished lung sounds bilateral bases. HEART: Regular rate and rhythm.? NEURO: ?Alert and oriented x3. Patient screened in triage and initial orders placed.? ?Additional care and disposition to be based upon?diagnostic testing and treatment. <Jillian Chew APRN - Last Filed: 04/18/24 14:02> History of Present Illness HPI narrative: Agree with above <Makayla Boateng MD - Last Filed: 04/19/24 21:15> Related Data Home Medications: Home Medications Medication Instructions Recorded Confirmed bupropion HCl 150 mg 24 hr tablet, 150 mg PO DAILY 06/13/19 04/19/24 extended release divalproex 500 mg tablet,extended 1,000 mg PO HS 06/13/19 04/19/24 release 24 hr zolpidem 10 mg tablet 10 mg PO HS 06/13/19 04/19/24 quetiapine 400 mg tablet 400 mg PO QHS 01/09/22 04/19/24 aspirin 81 mg tablet,delayed 81 mg PO DAILY 07/08/22 04/19/24 release (Adult Low Dose Aspirin) diazepam 5 mg tablet 5 mg PO DAILY PRN Anxiety 10/21/22 04/19/24 acetaminophen 325 mg tablet 650 mg PO Q6H PRN pain or fever 04/19/24 04/19/24 cholecalciferol (vitamin D3) 50 50 mcg PO DAILY 04/19/24 04/19/24 mcg (2,000 unit) capsule <Jillian Chew APRN - Last Filed: 04/18/24 14:02> Allergies/Adverse Reactions: Allergies Allergy/AdvReac Type Severity Reaction Status Date / Time tramadol Allergy Unknown Itching Verified 04/18/24 19:03 <Jillian Chew APRN - Last Filed: 04/18/24 14:02> Review of Systems Review of Systems: All systems reviewed & are unremarkable except as noted in HPI and below <Makayla Boateng MD - Last Filed: 04/19/24 21:15> [facility] Past Medical History Medical History: Medical History (Updated 04/19/24 @ 15:28 by Leo Rendon NP) Anxiety Arthritis Asthma Bipolar 1 disorder Coronary artery disease Depression Family history of abdominal aortic aneurysm (AAA) GERD (gastroesophageal reflux disease) Hypercholesterolemia Hypertension Liver disease Measles Melena Mumps Myocardial infarction 2008 with stent Obesity Osteoarthritis Pneumonia Transaminitis Type 2 diabetes mellitus <Jillian Chew APRN - Last Filed: 04/18/24 14:02> Surgical History Surgical History: Surgical History H/O: section x3 H/O: hysterectomy History of knee surgery History of orthopedic surgery Back x2, cervical x 1 <Jililan Chew APRN - Last Filed: 04/18/24 14:02> Family History Family History: Family History Mother Aortic aneurysm Father Patient's father is in good health <Jillian Chew APRN - Last Filed: 04/18/24 14:02> Social History Social History: Social History Smoking status: Current every day smoker Tobacco type: e-cigarettes/vaping Smoking end date: 05/18/12 Additional smoking assessment comments: vape may contain nicotine per patient Alcohol intake: never Substance use: never Substance use type: does not use Do You Feel Safe in your Home?: Yes Lack of Transportation: No Lack of Food: Never True Current Housing: I Have Housing Concerned About Future Housing: No Difficulty Paying Gas/Electric Bills: No Difficulty Paying for Meds: No Currently Unemployed: No Education: Decline to Answer Difficulty w/ Childcare or Family Care: Decline to Answer Living arrangements: alone Gender identity (if verbalized by the patient): Female Spiritual care concerns: No <Jillian Chew APRN - Last Filed: 04/18/24 14:02> Exam Narrative: GENERAL: Nontoxic, uncomfortable appearing, pleasant and cooperative HEAD: Normocephalic, atraumatic. EYES: PERRLA and EOMI. ENT: Spitting secretions into tissues NECK: Supple. CHEST: Clear to auscultation. No respiratory distress. HEART: Regular rate and rhythm ABDOMEN: Soft, nontender, nondistended EXTREMITIES: Normal range of motion SKIN: Warm, dry, no rash. NEURO: Alert and oriented x3. PSYCH: Normal mood and affect. <Makayla Boateng MD - Last Filed: 04/19/24 21:15> Course Vital Signs Vital signs: Vital Signs Temperature 97.6 F 04/18/24 13:47 Pulse Rate 89 04/18/24 13:47 Respiratory Rate 18 04/18/24 13:47 Blood Pressure 161/105 H 04/18/24 13:47 Pulse Oximetry 95 04/18/24 13:47 Oxygen Delivery Room Air 04/18/24 13:47 Temperature 98.7 F 04/19/24 20:24 Pulse Rate 76 04/19/24 20:24 Respiratory Rate 16 04/19/24 20:24 Blood Pressure 139/54 L 04/19/24 20:24 Pulse Oximetry 92 04/19/24 20:24 Oxygen Delivery Nasal Cannula 04/19/24 08:50 Oxygen Flow Rate 1 04/19/24 08:50 <Jillian Chew APRN - Last Filed: 04/18/24 14:02> Vital Signs Temperature 97.6 F 04/18/24 13:47 Pulse Rate 89 04/18/24 13:47 Respiratory Rate 18 04/18/24 13:47 Blood Pressure 161/105 H 04/18/24 13:47 Pulse Oximetry 95 04/18/24 13:47 Oxygen Delivery Room Air 04/18/24 13:47 Temperature 98.7 F 04/19/24 20:24 Pulse Rate 76 04/19/24 20:24 Respiratory Rate 16 04/19/24 20:24 Blood Pressure 139/54 L 04/19/24 20:24 Pulse Oximetry 92 04/19/24 20:24 Oxygen Delivery Nasal Cannula 04/19/24 08:50 Oxygen Flow Rate 1 04/19/24 08:50 <Makyala Boateng MD - Last Filed: 04/19/24 21:15> MDM - Chest Pain MDM Narrative Medical decision making narrative: 63-year-old female presenting with chest and abdominal pain with nausea. Vitals stable. Exam remarkable for the above. EKG per my interpretation shows normal sinus rhythm, nonspecific T-wave changes, no ST elevations or depressions. Blood work with a white count of 10.4. Troponin undetectable. CTA was obtained from triage which shows a large volume of material in the distal esophagus, possibly related to an esophageal stricture. She is currently not tolerating p.o. intake, spitting up her secretions. I spoke with Gastroenterology who will take her to the GI lab. Patient is agreeable this plan. Plan for discharge following the procedure. <Makayla Boateng MD - Last Filed: 04/19/24 21:15> Differential Diagnosis Differential diagnosis: Likely costochondritis, chest pain and other ( esophageal impaction, atypical chest pain) <Makayla Boateng MD - Last Filed: 04/19/24 21:15> Medical Records Data Attestation: I reviewed the patient's medical records. <Makayla Boateng MD - Last Filed: 04/19/24 21:15> Lab Data Attestation: I reviewed the patient's lab results. <Makayla Boateng MD - Last Filed: 04/19/24 21:15> Result diagrams: 04/19/24 03:26 04/19/24 03:26 <Jillian Chew APRN - Last Filed: 04/18/24 14:02> Labs: Lab Results 12/02/24 12/02/24 12/02/24 Range/Units 14:18 14:19 17:05 WBC 10.4 H (4.5-10.0) K/mm3 RBC 4.55 (4.2-5.4) M/mm3 Hgb 11.6 L (12.0-15.0) g/dL Hct 38.2 (37.0-47.0) % MCV 84.0 (80-100) fl MCH 25.5 L (26-34) pg MCHC 30.4 L (32-36) g/dl RDW 15.0 H (11.5-14.5) % Plt Count 276 (150-375) k/mm3 MPV 11.5 H (7.4-10.4) fl Immature Gran % (Auto) 0.5 (0-0.5) % Neut % (Auto) 65.7 (45.5-73.1) % Lymph % (Auto) 24.5 (18.3-44.2) % [place] % (Auto) 8.3 (2.6-8.5) % Eos % (Auto) 0.6 (0-4.4) % Baso % (Auto) 0.4 (0.2-1.2) % Lymph # (Auto) 2.56 (0.9-3.2) K/mm3 [place] # (Auto) 0.9 H (0.1-0.6) K/mm3 Eos # (Auto) 0.1 (0-0.3) K/mm3 Baso # (Auto) 0.0 (0.0-0.1) K/mm3 Abs Immat Gran (auto) 0.05 H (0.00-0.031) K/mm3 Absolute Neuts (auto) 6.9 H (1.3-6.7) K/mm3 Absolute Nucleated RBC 0.000 (0.0-0.012) K/mm3 Nucleated RBC % 0.0 (0.0-0.2) % PT 13.6 (11.1-14.7) Seconds INR 1.0 APTT 26.3 (22.3-36.8) Seconds Sodium 140 (137-145) mmol/L Potassium 4.5 (3.4-5.0) mmol/L Chloride 104 (98-107) mmol/L Carbon Dioxide 27 (22-30) mmol/L Anion Gap 9 (4-12) mmol/L BUN 13 (7-17) mg/dL Creatinine 0.70 (0.7-1.0) mg/dL Estim Creat Clear Calc 74 ml/min Estimated GFR > 60 (59 - ) Glucose 142 H (65-110) mg/dL POC Capillary Glucose (65-105) mg/dl Lactic Acid 2.4 H (0.7-2.0) mmol/L Calcium 9.6 (8.4-10.2) mg/dL Magnesium 1.5 L (1.6-2.3) mg/dL Total Bilirubin 0.5 (0.2-1.3) mg/dL AST 46 H (14-36) U/L ALT 29 (6-35) U/L Alkaline Phosphatase 123 (38-126) U/L Troponin I < 0.012 < 0.012 (0.000-0.034) ng/mL NT-Pro-B Natriuret Pep 158 H (19.9-100) pg/mL Total Protein 8.0 (6.3-8.2) g/dL Albumin 4.5 (3.5-5.1) g/dL Lipase 103 (23-300) U/L Urine Color Yellow (Yellow) Urine Appearance Clear (Clear) Urine pH 8.5 (5.0-9.0) Ur Specific [place] > 1.045 H (1.001-1.035) Urine Protein Negative (Negative) mg/dL Urine Glucose (UA) Negative (Negative) mg/dL Urine Ketones Negative (Negative) mg/dL Ur Blood (Man) Negative (Negative) Urine Nitrate Negative (Negative) Urine Bilirubin Negative (Negative) Urine Urobilinogen 0.2 (<2.0) mg/dL Leukocyte Esterase Rfl Negative (Negative) MILLY/UL 04/18/24 04/18/24 Range/Units 17:36 23:21 WBC (4.5-10.0) K/mm3 RBC (4.2-5.4) M/mm3 Hgb (12.0-15.0) g/dL Hct (37.0-47.0) % MCV (80-100) fl MCH (26-34) pg MCHC (32-36) g/dl RDW (11.5-14.5) % Plt Count (150-375) k/mm3 MPV (7.4-10.4) fl Immature Gran % (Auto) (0-0.5) % Neut % (Auto) (45.5-73.1) % Lymph % (Auto) (18.3-44.2) % [place] % (Auto) (2.6-8.5) % Eos % (Auto) (0-4.4) % Baso % (Auto) (0.2-1.2) % Lymph # (Auto) (0.9-3.2) K/mm3 [place] # (Auto) (0.1-0.6) K/mm3 Eos # (Auto) (0-0.3) K/mm3 Baso # (Auto) (0.0-0.1) K/mm3 Abs Immat Gran (auto) (0.00-0.031) K/mm3 Absolute Neuts (auto) (1.3-6.7) K/mm3 Absolute Nucleated RBC (0.0-0.012) K/mm3 Nucleated RBC % (0.0-0.2) % PT (11.1-14.7) Seconds INR APTT (22.3-36.8) Seconds Sodium (137-145) mmol/L Potassium (3.4-5.0) mmol/L Chloride (98-107) mmol/L Carbon Dioxide (22-30) mmol/L Anion Gap (4-12) mmol/L BUN (7-17) mg/dL Creatinine (0.7-1.0) mg/dL Estim Creat Clear Calc ml/min Estimated GFR (59 - ) Glucose (65-110) mg/dL POC Capillary Glucose 186 H (65-105) mg/dl Lactic Acid 1.9 (0.7-2.0) mmol/L Calcium (8.4-10.2) mg/dL Magnesium (1.6-2.3) mg/dL Total Bilirubin (0.2-1.3) mg/dL AST (14-36) U/L ALT (6-35) U/L Alkaline Phosphatase (38-126) U/L Troponin I (0.000-0.034) ng/mL NT-Pro-B Natriuret Pep (19.9-100) pg/mL Total Protein (6.3-8.2) g/dL Albumin (3.5-5.1) g/dL Lipase (23-300) U/L Urine Color (Yellow) Urine Appearance (Clear) Urine pH (5.0-9.0) Ur Specific [place] (1.001-1.035) Urine Protein (Negative) mg/dL Urine Glucose (UA) (Negative) mg/dL Urine Ketones (Negative) mg/dL Ur Blood (Man) (Negative) Urine Nitrate (Negative) Urine Bilirubin (Negative) Urine Urobilinogen (<2.0) mg/dL Leukocyte Esterase Rfl (Negative) MILLY/UL <Jillian Chew, TRANSFER MACHINE OPERATOR - Last Filed: 04/18/24 14:02> Lab Results 04/18/24 04/18/24 04/18/24 Range/Units 14:18 14:19 17:05 WBC 10.4 H (4.5-10.0) K/mm3 RBC 4.55 (4.2-5.4) M/mm3 Hgb 11.6 L (12.0-15.0) g/dL Hct 38.2 (37.0-47.0) % MCV 84.0 (80-100) fl MCH 25.5 L (26-34) pg MCHC 30.4 L (32-36) g/dl RDW 15.0 H (11.5-14.5) % Plt Count 276 (150-375) k/mm3 MPV 11.5 H (7.4-10.4) fl Immature Gran % (Auto) 0.5 (0-0.5) % Neut % (Auto) 65.7 (45.5-73.1) % Lymph % (Auto) 24.5 (18.3-44.2) % [place] % (Auto) 8.3 (2.6-8.5) % Eos % (Auto) 0.6 (0-4.4) % Baso % (Auto) 0.4 (0.2-1.2) % Lymph # (Auto) 2.56 (0.9-3.2) K/mm3 [place] # (Auto) 0.9 H (0.1-0.6) K/mm3 Eos # (Auto) 0.1 (0-0.3) K/mm3 Baso # (Auto) 0.0 (0.0-0.1) K/mm3 Abs Immat Gran (auto) 0.05 H (0.00-0.031) K/mm3 Absolute Neuts (auto) 6.9 H (1.3-6.7) K/mm3 Absolute Nucleated RBC 0.000 (0.0-0.012) K/mm3 Nucleated RBC % 0.0 (0.0-0.2) % PT 13.6 (11.1-14.7) Seconds INR 1.0 APTT 26.3 (22.3-36.8) Seconds Sodium 140 (137-145) mmol/L Potassium 4.5 (3.4-5.0) mmol/L Chloride 104 (98-107) mmol/L Carbon Dioxide 27 (22-30) mmol/L Anion Gap 9 (4-12) mmol/L BUN 13 (7-17) mg/dL Creatinine 0.70 (0.7-1.0) mg/dL Estim Creat Clear Calc 74 ml/min Estimated GFR > 60 (59 - ) Glucose 142 H (65-110) mg/dL POC Capillary Glucose (65-105) mg/dl Lactic Acid 2.4 H (0.7-2.0) mmol/L Calcium 9.6 (8.4-10.2) mg/dL Magnesium 1.5 L (1.6-2.3) mg/dL Total Bilirubin 0.5 (0.2-1.3) mg/dL AST 46 H (14-36) U/L ALT 29 (6-35) U/L Alkaline Phosphatase 123 (38-126) U/L Troponin I < 0.012 < 0.012 (0.000-0.034) ng/mL NT-Pro-B Natriuret Pep 158 H (19.9-100) pg/mL Total Protein 8.0 (6.3-8.2) g/dL Albumin 4.5 (3.5-5.1) g/dL Lipase 103 (23-300) U/L Urine Color Yellow (Yellow) Urine Appearance Clear (Clear) Urine pH 8.5 (5.0-9.0) Ur Specific [place] > 1.045 H (1.001-1.035) Urine Protein Negative (Negative) mg/dL Urine Glucose (UA) Negative (Negative) mg/dL Urine Ketones Negative (Negative) mg/dL Ur Blood (Man) Negative (Negative) Urine Nitrate Negative (Negative) Urine Bilirubin Negative (Negative) Urine Urobilinogen 0.2 (<2.0) mg/dL Leukocyte Esterase Rfl Negative (Negative) MILLY/UL 04/18/24 04/18/24 Range/Units 17:36 23:21 WBC (4.5-10.0) K/mm3 RBC (4.2-5.4) M/mm3 Hgb (12.0-15.0) g/dL Hct (37.0-47.0) % MCV (80-100) fl MCH (26-34) pg MCHC (32-36) g/dl RDW (11.5-14.5) % Plt Count (150-375) k/mm3 MPV (7.4-10.4) fl Immature Gran % (Auto) (0-0.5) % Neut % (Auto) (45.5-73.1) % Lymph % (Auto) (18.3-44.2) % [place] % (Auto) (2.6-8.5) % Eos % (Auto) (0-4.4) % Baso % (Auto) (0.2-1.2) % Lymph # (Auto) (0.9-3.2) K/mm3 [place] # (Auto) (0.1-0.6) K/mm3 Eos # (Auto) (0-0.3) K/mm3 Baso # (Auto) (0.0-0.1) K/mm3 Abs Immat Gran (auto) (0.00-0.031) K/mm3 Absolute Neuts (auto) (1.3-6.7) K/mm3 Absolute Nucleated RBC (0.0-0.012) K/mm3 Nucleated RBC % (0.0-0.2) % PT (11.1-14.7) Seconds INR APTT (22.3-36.8) Seconds Sodium (137-145) mmol/L Potassium (3.4-5.0) mmol/L Chloride (98-107) mmol/L Carbon Dioxide (22-30) mmol/L Anion Gap (4-12) mmol/L BUN (7-17) mg/dL Creatinine (0.7-1.0) mg/dL Estim Creat Clear Calc ml/min Estimated GFR (59 - ) Glucose (65-110) mg/dL POC Capillary Glucose 186 H (65-105) mg/dl Lactic Acid 1.9 (0.7-2.0) mmol/L Calcium (8.4-10.2) mg/dL Magnesium (1.6-2.3) mg/dL Total Bilirubin (0.2-1.3) mg/dL AST (14-36) U/L ALT (6-35) U/L Alkaline Phosphatase (38-126) U/L Troponin I (0.000-0.034) ng/mL NT-Pro-B Natriuret Pep (19.9-100) pg/mL Total Protein (6.3-8.2) g/dL Albumin (3.5-5.1) g/dL Lipase (23-300) U/L Urine Color (Yellow) Urine Appearance (Clear) Urine pH (5.0-9.0) Ur Specific [place] (1.001-1.035) Urine Protein (Negative) mg/dL Urine Glucose (UA) (Negative) mg/dL Urine Ketones (Negative) mg/dL Ur Blood (Man) (Negative) Urine Nitrate (Negative) Urine Bilirubin (Negative) Urine Urobilinogen (<2.0) mg/dL Leukocyte Esterase Rfl (Negative) MILLY/UL <Makayla Boateng MD - Last Filed: 04/19/24 21:15> Imaging Data Radiologist's impression: ITS Impressions Chest CTA 04/18/24 15:01 IMPRESSION: 1. No pulmonary embolus. 2. Large volume of material in the esophagus, which may be secondary to dysmotility or distal stricture. 3. Mild emphysema. Chest X-Ray 04/18/24 15:31 IMPRESSION: 1. No acute cardiopulmonary disease. <Makayla Boateng MD - Last Filed: 04/19/24 21:15> Critical Care Time Critical Care Time Critical Care Time: No <Makayla Boateng MD - Last Filed: 04/19/24 21:15> Discharge Plan Discharge Clinical Impression: Food impaction of esophagus <Jillian Chew APRN - Last Filed: 04/18/24 14:02> Patient Disposition: Still a Patient <Jillian Chew APRN - Last Filed: 04/18/24 14:02> Condition: Stable <Jillian Chew, DIVINA - Last Filed: 04/18/24 14:02>
--- NOTE | 2024-04-18 14:14 | PC.NURSE ---
workforce development specialist asked this RN to take a look at the patient due to daughter saying that the patient was feeling worse patient states that she is unable to swallow, having difficulty breathing and increasing chest pain. patient is diaphoretic. patient taken back to triage where repeat vital signs were obtained, patient hooked up for a repeat ekg. Patient vomiting in triage. tech, COMMERCIAL PEST CONTROL REPRESENTATIVE, and RN with the patient at this time.
[2024-04-18 14:27] LABS: Basophils Percent Auto 0.4 % (0.2-1.2); Eosinophils Absolute Auto 0.1 K/mm3 (0-0.3); Eosinophils Percent Auto 0.6 % (0-4.4); Hematocrit 38.2 % (37.0-47.0); Hemoglobin 11.6 g/dL (12.0-15.0); Immature Granulocyte Absolute 0.05 K/mm3 (0.00-0.031); Immature Granulocyte Percent A 0.5 % (0-0.5); Lymphocytes Absolute Auto 2.56 K/mm3 (0.9-3.2); Lymphocytes Percent Auto 24.5 % (18.3-44.2); Mean Corpuscular HGB Conc 30.4 g/dl (32-36); Mean Corpuscular Hemoglobin 25.5 pg (26-34); Mean Platelet Volume 11.5 fl (7.4-10.4); Monocytes Absolute Auto 0.9 K/mm3 (0.1-0.6); Monocytes Percent Auto 8.3 % (2.6-8.5); Neutrophils Absolute Auto 6.9 K/mm3 (1.3-6.7); Neutrophils Percent Auto 65.7 % (45.5-73.1); Platelet Count Result 276 k/mm3 (150-375); Red Blood Count 4.55 M/mm3 (4.2-5.4); White Blood Count 10.4 K/mm3 (4.5-10.0)
[2024-04-18 14:36] LABS: Lactic Acid Reflex 2.4 mmol/L (0.7-2.0)
[2024-04-18 14:37] LABS: Alanine Aminotransferase 29 U/L (6-35); Albumin Level 4.5 g/dL (3.5-5.1); Alkaline Phosphatase 123 U/L (38-126); Anion Gap 9 mmol/L (4-12); Aspartate Amino Transferase 46 U/L (14-36); Bilirubin,Total 0.5 mg/dL (0.2-1.3); Blood Urea Nitrogen 13 mg/dL (7-17); Calcium 9.6 mg/dL (8.4-10.2); Carbon Dioxide 27 mmol/L (22-30); Chloride 104 mmol/L (98-107); Estimated CRCL calculation 74 ml/min; Estimated Glomerular Filt Rate > 60; Glucose 142 mg/dL (65-110); Lipase 103 U/L (23-300); Magnesium 1.5 mg/dL (1.6-2.3); Potassium 4.5 mmol/L (3.4-5.0); Sodium 140 mmol/L (137-145)
[2024-04-18 14:43] LABS: Partial Thromboplastin Time 26.3 Seconds (22.3-36.8); Prothrombin Time 13.6 Seconds (11.1-14.7)
[2024-04-18 14:49] LABS: NT Pro B Type Natriuretic Pept 158 pg/mL (19.9-100); Troponin I < 0.012 ng/mL (0.000-0.034)
[2024-04-18] MEDS: ASPIRIN 81 MG CHEWABLE TABLET 324 MG PO (14:55)
[2024-04-18] MEDS: IPRATROPIUM 0.5 MG/ALBUTEROL SULFATE 2.5 MG AMPUL.NEB 3 ML INHALATION (15:30)
[2024-04-18] MEDS: SODIUM CHLORIDE 0.9% IV 1,000 ML 999 ML IV CONT (17:01)
[2024-04-18] MEDS: ONDANSETRON INJ 4 MG/2 ML VIAL IV PUSH (17:01)
[2024-04-18] MEDS: MORPHINE SULFATE (*CRX) 4 MG/ML INJ IV PUSH (17:02)
[2024-04-18 17:16] LABS: Add Urine Microscopic? NO; Appearance Urine Clear (Clear); Bilirubin Urine Negative (Negative); Blood Urine Negative (Negative); Color Urine Yellow (Yellow); Glucose Urine UA Negative (Negative); Ketones Urine Negative (Negative); Leukocyte Esterase Ur Negative LEU/UL (Negative); Nitrate Urine Negative (Negative); Protein Urine Negative (Negative); Specific Grav Ur > 1.045 (1.001-1.035); Urobilinogen Urine 0.2 mg/dL (<2.0); pH Urine 8.5 (5.0-9.0)
[2024-04-18 17:25] LABS: Reflex Lactic Acid Yes or No Add Lactic
[2024-04-18 17:38] LABS: Troponin I < 0.012 ng/mL (0.000-0.034)
[2024-04-18 17:51] LABS: Lactic Acid 1.9 mmol/L (0.7-2.0)
--- NOTE | 2024-04-18 17:59 | ECG_ITS ---
Test Date: 2024-04-18 18:29:22 Measurements Intervals [place] Rate: 87 P: 43 NM: 160 QRS: -41 QRSD: 90 T: 79 QT: 338 QTc: 408 Interpretive Statements SINUS RHYTHM POSSIBLE LEFT ATRIAL ENLARGEMENT [-0.1mV P WAVE IN V1/V2] MARKED LEFT AXIS DEVIATION [QRS AXIS < -30] NONSPECIFIC T-WAVE ABNORMALITY Compared to ECG 04/18/2024 13:55:16 No significant changes Electronically Signed On 04-19-2024 15:05:51 BEAM WORKER by Leticia Del Real M.D.
[2024-04-18] MEDS: LACTATED RINGERS 1,000 ML 150 ML IV CONT ×2 (18:35→19:03)
--- NOTE | 2024-04-18 19:10 | P.PNAN_ITS ---
Anes - Initial Pre Proc Eval Procedure: Operation Date: 04/18/24 19:00 Proposed Procedures p Esophagogastroduodenoscopy - Anirudh Garcia MD Date/Time: 04/18/24 19:10 Surgeon: Anirudh Garcia MD Pre Op Diagnosis: epigastric pain that radiates to back/SOB Patient Data Age: 63 Gender: F Height: 1.6 m Weight: 86.9 kg Last Vital Signs Temp 36.9 C 04/18/24 14:10 Pulse 100 04/18/24 18:35 Resp 18 04/18/24 18:35 BP 176/89 H 04/18/24 18:35 Pulse Ox 96 04/18/24 18:35 O2 Del Method Room Air 04/18/24 14:59 Allergies Allergy/AdvReac Type Severity Reaction Status Date / Time tramadol Allergy Unknown Itching Verified 04/18/24 19:03 Home Medications Medication Instructions Recorded Confirmed Type bupropion HCl 150 mg 24 hr tablet, 150 mg PO DAILY 06/13/19 03/15/24 History extended release divalproex 500 mg tablet,extended 1,000 mg PO HS 06/13/19 03/15/24 History release 24 hr zolpidem 10 mg tablet 10 mg PO DAILY 06/13/19 03/15/24 History quetiapine 400 mg tablet 400 mg PO QHS 01/09/22 03/15/24 History aspirin 81 mg tablet,delayed 81 mg PO DAILY 07/08/22 03/15/24 History release (Adult Low Dose Aspirin) diazepam 5 mg tablet 5 mg PO BID PRN 10/21/22 03/15/24 History atorvastatin 40 mg tablet 40 mg PO DAILY #90 tabs 09/10/23 03/15/24 Rx triamcinolone acetonide 0.1 % 1 applic topical BID #30 grams 09/10/23 03/15/24 Rx topical cream metoprolol tartrate 25 mg tablet 25 mg PO DAILY #90 tabs 12/01/23 03/15/24 Rx metformin 1,000 mg tablet 1,000 mg PO BID #180 tabs 01/08/24 03/15/24 Rx oxybutynin chloride 5 mg tablet 5 mg PO BID #60 tabs 03/07/24 03/15/24 Rx ibuprofen 800 mg tablet 800 mg PO BID PRN pain #30 tabs 03/15/24 03/15/24 Rx omeprazole 40 mg capsule,delayed See Rx Instructions .Route 04/06/24 Rx release .COMPLEX #90 caps Laboratory Tests 04/18/24 04/18/24 04/18/24 14:18 14:19 17:05 WBC 10.4 H K/mm3 (4.5-10.0) RBC 4.55 M/mm3 (4.2-5.4) Hgb 11.6 L g/dL (12.0-15.0) Hct 38.2 % (37.0-47.0) MCV 84.0 fl (80-100) MCH 25.5 L pg (26-34) MCHC 30.4 L g/dl (32-36) RDW 15.0 H % (11.5-14.5) Plt Count 276 k/mm3 (150-375) MPV 11.5 H fl (7.4-10.4) Immature Gran % (Auto) 0.5 % (0-0.5) Neut % (Auto) 65.7 % (45.5-73.1) Lymph % (Auto) 24.5 % (18.3-44.2) [place] % (Auto) 8.3 % (2.6-8.5) Eos % (Auto) 0.6 % (0-4.4) Baso % (Auto) 0.4 % (0.2-1.2) Lymph # (Auto) 2.56 K/mm3 (0.9-3.2) [place] # (Auto) 0.9 H K/mm3 (0.1-0.6) Eos # (Auto) 0.1 K/mm3 (0-0.3) Baso # (Auto) 0.0 K/mm3 (0.0-0.1) Abs Immat Gran (auto) 0.05 H K/mm3 (0.00-0.031) Absolute Neuts (auto) 6.9 H K/mm3 (1.3-6.7) Absolute Nucleated RBC 0.000 K/mm3 (0.0-0.012) Nucleated RBC % 0.0 % (0.0-0.2) PT 13.6 Seconds (11.1-14.7) INR 1.0 APTT 26.3 Seconds (22.3-36.8) Sodium 140 mmol/L (137-145) Potassium 4.5 mmol/L (3.4-5.0) Chloride 104 mmol/L (98-107) Carbon Dioxide 27 mmol/L (22-30) Anion Gap 9 mmol/L (4-12) BUN 13 mg/dL (7-17) Creatinine 0.70 mg/dL (0.7-1.0) Estim Creat Clear Calc 74 ml/min Estimated GFR > 60 (59 - ) Glucose 142 H mg/dL (65-110) Lactic Acid 2.4 H mmol/L (0.7-2.0) Calcium 9.6 mg/dL (8.4-10.2) Magnesium 1.5 L mg/dL (1.6-2.3) Total Bilirubin 0.5 mg/dL (0.2-1.3) AST 46 H U/L (14-36) ALT 29 U/L (6-35) Alkaline Phosphatase 123 U/L (38-126) Troponin I < 0.012 ng/mL < 0.012 ng/mL (0.000-0.034) (0.000-0.034) NT-Pro-B Natriuret Pep 158 H pg/mL (19.9-100) Total Protein 8.0 g/dL (6.3-8.2) Albumin 4.5 g/dL (3.5-5.1) Lipase 103 U/L (23-300) Urine Color Yellow (Yellow) Urine Appearance Clear (Clear) Urine pH 8.5 (5.0-9.0) Ur Specific [place] > 1.045 H (1.001-1.035) Urine Protein Negative mg/dL (Negative) Urine Glucose (UA) Negative mg/dL (Negative) Urine Ketones Negative mg/dL (Negative) Ur Blood (Man) Negative (Negative) Urine Nitrate Negative (Negative) Urine Bilirubin Negative (Negative) Urine Urobilinogen 0.2 mg/dL (<2.0) Leukocyte Esterase Rfl Negative MILLY/UL (Negative) 04/18/24 17:36 WBC RBC Hgb Hct MCV MCH MCHC RDW Plt Count MPV Immature Gran % (Auto) Neut % (Auto) Lymph % (Auto) [place] % (Auto) Eos % (Auto) Baso % (Auto) Lymph # (Auto) [place] # (Auto) Eos # (Auto) Baso # (Auto) Abs Immat Gran (auto) Absolute Neuts (auto) Absolute Nucleated RBC Nucleated RBC % PT INR APTT Sodium Potassium Chloride Carbon Dioxide Anion Gap BUN Creatinine Estim Creat Clear Calc Estimated GFR Glucose Lactic Acid 1.9 mmol/L (0.7-2.0) Calcium Magnesium Total Bilirubin AST ALT Alkaline Phosphatase Troponin I NT-Pro-B Natriuret Pep Total Protein Albumin Lipase Urine Color Urine Appearance Urine pH Ur Specific [place] Urine Protein Urine Glucose (UA) Urine Ketones Ur Blood (Man) Urine Nitrate Urine Bilirubin Urine Urobilinogen Leukocyte Esterase Rfl Patient hx anesthesia problems: none Family hx anesthesia problems: none Results Review: All pre-operative results and documents have been reviewed as part of the pre- operative evaluation. [facility] Past Medical History Medical History Anxiety Arthritis Asthma Bipolar 1 disorder Coronary artery disease Depression Family history of abdominal aortic aneurysm (AAA) GERD (gastroesophageal reflux disease) Hypercholesterolemia Hypertension Liver disease Measles Melena Mumps Myocardial infarction 2008 with stent Obesity Osteoarthritis Pneumonia Transaminitis Type 2 diabetes mellitus Surgical History Surgical History H/O: section x3 H/O: hysterectomy History of knee surgery History of orthopedic surgery Back x2, cervical x 1 Family History Family History Mother Aortic aneurysm Father Patient's father is in good health Social History Social History Smoking status: Current every day smoker Tobacco type: e-cigarettes/vaping Smoking end date: 05/18/12 Additional smoking assessment comments: vape may contain nicotine per patient Alcohol intake: never Substance use: never Substance use type: does not use Do You Feel Safe in your Home?: Yes Lack of Transportation: No Lack of Food: Never True Current Housing: I Have Housing Concerned About Future Housing: No Difficulty Paying Gas/Electric Bills: No Difficulty Paying for Meds: No Currently Unemployed: No Education: High School Diploma/GED Difficulty w/ Childcare or Family Care: No Living arrangements: alone Gender identity (if verbalized by the patient): Female Spiritual care concerns: No Anes - Eval Final PreProcedure Day of Procedure 04/18/24 19:10 Patient weight: obese Heart: regular rate and rhythm Lungs: clear to auscultation Airway: Mallampati scale class II Neurological: alert and oriented Last oral intake: >/= 8 hours ASA classification: III Emergent: yes Anesthetic plan: proceed Anesthesia type and monitoring: general ETT and standard monitoring Results Review: All pre-operative results and documents have been reviewed as part of the pre- operative evaluation. Informed Consent: The patient's anesthetic plan and its attendant risks and benefits were discussed with the patient/family/POA. Questions were solicited and answers pr ovided to the satisfaction of the patient/family/POA.
--- NOTE | 2024-04-18 22:31 | SUR.OPER ---
Dr Garcia to admit pt overnight due to upper airway trauma. Pt's family updated by Dr. Garcia.
--- NOTE | 2024-04-18 23:07 | WPDGICN ---
Assessment and Plan Assessment and plan (1) Food impaction of esophagus: Code(s): T18.128A - Food in esophagus causing other injury, initial encounter; [id number].F3XA - Food entering into or through a natural orifice, initial encounter Status: Acute Assessment and Plan: see endoscopy report. Due to the prolonged procedure required to disimpact the entire esophagus, and the manipulation of her upper esophagus, we decided to observe her overnight and will order a non contrast CT scan of the neck and chest to rule out subcutaneous emphysema, which may occur after prolonged manipulation of the upper esophagus. She will be admitted to a monitor bed overnight. GI Consult Note Consult date/time: 04/18/24 23:07 HPI: Jagruti Domingo is a 63 year old female who presented to the ER with the history of food bolus impaction for the past 24 hours. She states she was eating hamburger yesterday at noon and was unable to swallow her own saliva or anything else since then. She presented with epigastric and chest pain, having a negative cardiac workup. Upon further questioning, she states she has been experiencing dysphagia to solid food that has been progressively worsening over the past 6 months. There is no unintentional weight loss or Dysphagia to liquids. Review of Systems Review of Systems: All systems reviewed & are unremarkable except as noted in HPI and below PMFSH Past Medical History Medical History Anxiety Arthritis Asthma Bipolar 1 disorder Coronary artery disease Depression Family history of abdominal aortic aneurysm (AAA) GERD (gastroesophageal reflux disease) Hypercholesterolemia Hypertension Liver disease Measles Melena Mumps Myocardial infarction 2008 with stent Obesity Osteoarthritis Pneumonia Transaminitis Type 2 diabetes mellitus Surgical History Surgical History H/O: section x3 H/O: hysterectomy History of knee surgery History of orthopedic surgery Back x2, cervical x 1 Family History Family History Mother Aortic aneurysm Father Patient's father is in good health Social History Social History Smoking status: Current every day smoker Tobacco type: e-cigarettes/vaping Smoking end date: 05/18/12 Additional smoking assessment comments: vape may contain nicotine per patient Alcohol intake: never Substance use: never Substance use type: does not use Do You Feel Safe in your Home?: Yes Lack of Transportation: No Lack of Food: Never True Current Housing: I Have Housing Concerned About Future Housing: No Difficulty Paying Gas/Electric Bills: No Difficulty Paying for Meds: No Currently Unemployed: No Education: High School Diploma/GED Difficulty w/ Childcare or Family Care: No Living arrangements: alone Gender identity (if verbalized by the patient): Female Spiritual care concerns: No Meds Home Medications and Allergies Home Medications Medication Instructions Recorded Confirmed Type bupropion HCl 150 mg 24 hr tablet, 150 mg PO DAILY 06/13/19 04/18/24 History extended release divalproex 500 mg tablet,extended 1,000 mg PO HS 06/13/19 04/18/24 History release 24 hr zolpidem 10 mg tablet 10 mg PO DAILY 06/13/19 04/18/24 History quetiapine 400 mg tablet 400 mg PO QHS 01/09/22 04/18/24 History aspirin 81 mg tablet,delayed 81 mg PO DAILY 07/08/22 04/18/24 History release (Adult Low Dose Aspirin) diazepam 5 mg tablet 5 mg PO BID PRN Anxiety 10/21/22 04/18/24 History atorvastatin 40 mg tablet 40 mg PO DAILY #90 tabs 09/10/23 04/18/24 Rx triamcinolone acetonide 0.1 % 1 applic topical BID #30 grams 09/10/23 03/15/24 Rx topical cream metoprolol tartrate 25 mg tablet 25 mg PO DAILY #90 tabs 12/01/23 04/18/24 Rx metformin 1,000 mg tablet 1,000 mg PO BID #180 tabs 01/08/24 04/18/24 Rx oxybutynin chloride 5 mg tablet 5 mg PO BID #60 tabs 03/07/24 04/18/24 Rx ibuprofen 800 mg tablet 800 mg PO BID PRN pain #30 tabs 03/15/24 03/15/24 Rx omeprazole 40 mg capsule,delayed See Rx Instructions .Route 04/06/24 04/18/24 Rx release .COMPLEX #90 caps Allergies Allergy/AdvReac Type Severity Reaction Status Date / Time tramadol Allergy Unknown Itching Verified 04/18/24 19:03 Vital Signs Vital Signs - 24 hr 12/02/24 13:47 04/18/24 14:10 04/18/24 14:59 Temperature 97.6 F 98.4 F Pulse Rate 89 91 Respiratory Rate 18 20 Blood Pressure 161/105 H 151/91 H Pulse Oximetry 95 96 95 Oxygen Delivery Room Air Room Air Oxygen Flow Rate 04/18/24 15:30 04/18/24 15:38 04/18/24 15:00 Temperature Pulse Rate 74 86 85 Respiratory Rate 20 20 14 Blood Pressure 180/84 H Pulse Oximetry 97 Oxygen Delivery Oxygen Flow Rate 04/18/24 15:15 04/18/24 15:57 04/18/24 16:00 Temperature Pulse Rate 77 84 87 Respiratory Rate 21 H 20 17 Blood Pressure 171/81 H 159/77 H 164/81 H Pulse Oximetry 97 96 93 Oxygen Delivery Oxygen Flow Rate 04/18/24 16:16 04/18/24 16:30 04/18/24 16:45 Temperature Pulse Rate 78 81 89 Respiratory Rate 15 17 16 Blood Pressure 156/75 H 159/79 H 153/89 H Pulse Oximetry 93 95 95 Oxygen Delivery Oxygen Flow Rate 04/18/24 17:16 04/18/24 17:30 04/18/24 18:35 Temperature Pulse Rate 96 98 100 Respiratory Rate 16 20 18 Blood Pressure 163/97 H 158/94 H 176/89 H Pulse Oximetry 94 95 96 Oxygen Delivery Oxygen Flow Rate 04/18/24 19:03 04/18/24 22:41 04/18/24 22:51 Temperature 97.4 F L 98.2 F Pulse Rate 94 105 H 101 H Respiratory Rate 18 23 H 22 H Blood Pressure 171/85 H 134/55 L 133/52 L Pulse Oximetry 96 97 98 Oxygen Delivery Room Air Simple Face Mask Simple Face Mask Oxygen Flow Rate 10 10 04/18/24 23:01 Temperature Pulse Rate 98 Respiratory Rate 21 H Blood Pressure 125/60 Pulse Oximetry 97 Oxygen Delivery Simple Face Mask Oxygen Flow Rate 10 Exam Const: General: cooperative and healthy appearing Resp: Effort & Inspection: normal respiratory effort and able to speak in complete sentences Auscultation: clear to auscultation bilaterally Cardio: Rate: regular rate Rhythm: regular rhythm GI: Inspection: normal to inspection GI Palp: No No hepatosplenomegaly present Auscultation: normal bowel sounds Rectal Exam: deferred Skin: General skin exam: normal color Psych: Appearance: grossly normal Mental Status: mental status grossly normal Results Labs 04/18/24 14:18 04/18/24 14:18 Labs: Short CBC 04/18/24 Range/Units 14:18 WBC 10.4 H (4.5-10.0) K/mm3 Hgb 11.6 L (12.0-15.0) g/dL Hct 38.2 (37.0-47.0) % Plt Count 276 (150-375) k/mm3 BMP 04/18/24 14:18 Sodium 140 Potassium 4.5 Chloride 104 Carbon Dioxide 27 BUN 13 Creatinine 0.70 Glucose 142 H Calcium 9.6 Cardiac Enzymes 04/18/24 04/18/24 Range/Units 14:18 17:05 Troponin I < 0.012 < 0.012 (0.000-0.034) ng/mL Liver Function 04/18/24 Range/Units 14:18 Total Bilirubin 0.5 (0.2-1.3) mg/dL AST 46 H (14-36) U/L ALT 29 (6-35) U/L Alkaline Phosphatase 123 (38-126) U/L Albumin 4.5 (3.5-5.1) g/dL Urine 04/18/24 Range/Units 17:05 Urine Color Yellow (Yellow) Urine Appearance Clear (Clear) Urine pH 8.5 (5.0-9.0) Ur Specific [place] > 1.045 H (1.001-1.035) Urine Protein Negative (Negative) mg/dL Urine Glucose (UA) Negative (Negative) mg/dL
[2024-04-18 23:24] LABS: Glucose Point of Care 186 mg/dl (65-105)
--- NOTE | 2024-04-18 23:42 | SUR.PHASEII ---
Pt currently on 4L NC unable to wean at this time. Pt awake, no stridor per auscultation. Anesthesia notified state ok to transfer to floor on Nasal cannula.
[2024-04-19] VITALS (13 sets, daily range): BP systolic 135–155; BP diastolic 54–75; PULSE 75–105; RESP 12–20; TEMP 36.5–37.2; O2SAT 90–95; BMI 34.7
--- NOTE | 2024-04-19 | ADMGEN ---
This patient, Jagruti Domingo, was admitted to -. Patient/family oriented to hospital policies and general routines including ID bracelet, bed and alarms, visiting hours, pain management, procedures, bathroom and other care routines, personal items, smoking policy, room service/diet, and visiting hours. Information on how to activate the Rapid Response Team has been discussed. Patient/Family are encouraged to report perceived risks to care and to ask questions if they do not understand what they are told or what they should do.
[2024-04-19] MEDS: HYDROmorphone HCL INJ (*CRX) 1 MG/ML SYR 0.5 MG IV PUSH ×4 (02:15→21:12)
[2024-04-19 04:14] LABS: Basophils Percent Auto 0.2 % (0.2-1.2); Hematocrit 36.7 % (37.0-47.0); Hemoglobin 11.2 g/dL (12.0-15.0); Immature Granulocyte Absolute 0.14 K/mm3 (0.00-0.031); Lymphocytes Absolute Auto 1.25 K/mm3 (0.9-3.2); Mean Corpuscular HGB Conc 30.5 g/dl (32-36); Mean Corpuscular Hemoglobin 25.9 pg (26-34); Mean Corpuscular Volume 84.8 fl (80-100); Mean Platelet Volume 11.7 fl (7.4-10.4); Monocytes Absolute Auto 0.3 K/mm3 (0.1-0.6); Monocytes Percent Auto 2.2 % (2.6-8.5); Neutrophils Absolute Auto 12.2 K/mm3 (1.3-6.7); Neutrophils Percent Auto 87.6 % (45.5-73.1); Platelet Count Result 288 k/mm3 (150-375); Red Blood Count 4.33 M/mm3 (4.2-5.4); Red Cell Distribution Width 15.1 % (11.5-14.5); White Blood Count 13.9 K/mm3 (4.5-10.0)
[2024-04-19 04:30] LABS: Alanine Aminotransferase 28 U/L (6-35); Albumin Level 4.3 g/dL (3.5-5.1); Alkaline Phosphatase 116 U/L (38-126); Anion Gap 9 mmol/L (4-12); Aspartate Amino Transferase 43 U/L (14-36); Bilirubin,Total 0.5 mg/dL (0.2-1.3); Blood Urea Nitrogen 11 mg/dL (7-17); Calcium 8.8 mg/dL (8.4-10.2); Carbon Dioxide 27 mmol/L (22-30); Chloride 103 mmol/L (98-107); Estimated CRCL calculation 75 ml/min; Estimated Glomerular Filt Rate > 60; Glucose 184 mg/dL (65-110); Potassium 4.4 mmol/L (3.4-5.0); Sodium 139 mmol/L (137-145)
[2024-04-19 04:41] LABS: Troponin I < 0.012 ng/mL (0.000-0.034)
[2024-04-19] MEDS: SODIUM CHLORIDE 0.9% IV 1,000 ML 100 ML IV CONT ×2 (06:37→18:29)
[2024-04-19] MEDS: ONDANSETRON INJ 4 MG/2 ML VIAL IV PUSH ×2 (07:52→21:13)
--- NOTE | 2024-04-19 14:57 | P.HP_ITS ---
H&P: HPI History of Present Illness Date/Time: 04/19/24 14:57 Chief Complaint: Chest Discomfort. Narrative: Patient presented to the ER with reports of chest discomfort that has been worsening within the last couple of days. She describes her symptoms as chest discomfort as a tight band that radiated from her chest to her back. Patient also reported difficulty swallowing at times, reporting only saliva coming up from her throat to her mouth, with trouble swallowing solid foods. Symptoms were also associated with nausea. Pt reported a Hx of DM 2, HTN, GERD, dyslipidemia, CAD and Bipolar 1 disorder. Initial work-up labs showed WBC 10.4, Hgb 11.2 otherwise unremarkable, including 2 negative troponin. EKG per my interpretation shows normal sinus rhythm, nonspecific T-wave changes, no ST elevations or depre ssions. CTA was obtained from triage which showed a large volume of material in the distal esophagus, possibly related to an esophageal stricture. Patient was not able to tolerate p.o. intake in the ER, only spitting up her secretions. Gastroenterology was consulted and patient was taken for an emergent EGD that showed a large amount of retained food in the mid esophagus and distal esophagus that were extracted. Esophagus was normal after being cleared with no ulcers or masses. Her stomach also did not have any ulcers or masses. Patient states she was informed she needs to be transferred to a tertiary facility for further work-up due to the large amounts of food trapped on her esophagus, per GI. Awaiting official GI recommendations. Review of Systems Review of Systems: All systems reviewed & are unremarkable except as noted in HPI and below PMFSH Past Medical History Medical History (Updated 04/19/24 @ 15:28 by Leo Rendon NP) Anxiety Arthritis Asthma Bipolar 1 disorder Coronary artery disease Depression Family history of abdominal aortic aneurysm (AAA) GERD (gastroesophageal reflux disease) Hypercholesterolemia Hypertension Liver disease Measles Melena Mumps Myocardial infarction 2008 with stent Obesity Osteoarthritis Pneumonia Transaminitis Type 2 diabetes mellitus Surgical History Surgical History H/O: section x3 H/O: hysterectomy History of knee surgery History of orthopedic surgery Back x2, cervical x 1 Family History Family History Mother Aortic aneurysm Father Patient's father is in good health Social History Social History Smoking status: Current every day smoker Tobacco type: e-cigarettes/vaping Smoking end date: 05/18/12 Additional smoking assessment comments: vape may contain nicotine per patient Alcohol intake: never Substance use: never Substance use type: does not use Do You Feel Safe in your Home?: Yes Lack of Transportation: No Lack of Food: Never True Current Housing: I Have Housing Concerned About Future Housing: No Difficulty Paying Gas/Electric Bills: No Difficulty Paying for Meds: No Currently Unemployed: No Education: Decline to Answer Difficulty w/ Childcare or Family Care: Decline to Answer Living arrangements: alone Gender identity (if verbalized by the patient): Female Spiritual care concerns: No Meds Home Medications and Allergies Home Medications Medication Instructions Recorded Confirmed Type bupropion HCl 150 mg 24 hr tablet, 150 mg PO DAILY 06/13/19 04/19/24 History extended release divalproex 500 mg tablet,extended 1,000 mg PO HS 06/13/19 04/19/24 History release 24 hr zolpidem 10 mg tablet 10 mg PO HS 06/13/19 04/19/24 History quetiapine 400 mg tablet 400 mg PO QHS 01/09/22 04/19/24 History aspirin 81 mg tablet,delayed 81 mg PO DAILY 07/08/22 04/19/24 History release (Adult Low Dose Aspirin) diazepam 5 mg tablet 5 mg PO DAILY PRN Anxiety 10/21/22 04/19/24 History atorvastatin 40 mg tablet 40 mg PO DAILY #90 tabs 09/10/23 04/19/24 Rx triamcinolone acetonide 0.1 % 1 applic topical BID #30 grams 09/10/23 04/19/24 Rx topical cream metoprolol tartrate 25 mg tablet 25 mg PO DAILY #90 tabs 12/01/23 04/19/24 Rx metformin 1,000 mg tablet 1,000 mg PO BID #180 tabs 01/08/24 04/19/24 Rx oxybutynin chloride 5 mg tablet 5 mg PO BID #60 tabs 03/07/24 04/19/24 Rx ibuprofen 800 mg tablet 800 mg PO BID PRN pain #30 tabs 03/15/24 04/19/24 Rx omeprazole 40 mg capsule,delayed See Rx Instructions .Route 04/06/24 04/19/24 Rx release .COMPLEX #90 caps acetaminophen 325 mg tablet 650 mg PO Q6H PRN pain or fever 04/19/24 04/19/24 History cholecalciferol (vitamin D3) 50 50 mcg PO DAILY 04/19/24 04/19/24 History mcg (2,000 unit) capsule Allergies Allergy/AdvReac Type Severity Reaction Status Date / Time tramadol Allergy Unknown Itching Verified 04/18/24 19:03 Vital Signs Vital Signs - 24 hr 04/18/24 14:59 04/18/24 15:30 04/18/24 15:38 Temperature Pulse Rate 74 86 Respiratory Rate 20 20 Blood Pressure Pulse Oximetry 95 Oxygen Delivery Room Air Oxygen Flow Rate 04/18/24 15:00 04/18/24 15:15 04/18/24 15:57 Temperature Pulse Rate 85 77 84 Respiratory Rate 14 21 H 20 Blood Pressure 180/84 H 171/81 H 159/77 H Pulse Oximetry 97 97 96 Oxygen Delivery Oxygen Flow Rate 04/18/24 16:00 04/18/24 16:16 04/18/24 16:30 Temperature Pulse Rate 87 78 81 Respiratory Rate 17 15 17 Blood Pressure 164/81 H 156/75 H 159/79 H Pulse Oximetry 93 93 95 Oxygen Delivery Oxygen Flow Rate 04/18/24 16:45 04/18/24 17:16 04/18/24 17:30 Temperature Pulse Rate 89 96 98 Respiratory Rate 16 16 20 Blood Pressure 153/89 H 163/97 H 158/94 H Pulse Oximetry 95 94 95 Oxygen Delivery Oxygen Flow Rate 04/18/24 18:35 04/18/24 19:03 04/18/24 22:41 Temperature 97.4 F L 98.2 F Pulse Rate 100 94 105 H Respiratory Rate 18 18 23 H Blood Pressure 176/89 H 171/85 H 134/55 L Pulse Oximetry 96 96 97 Oxygen Delivery Room Air Simple Face Mask Oxygen Flow Rate 10 04/18/24 22:51 04/18/24 23:01 04/18/24 23:11 Temperature Pulse Rate 101 H 98 97 Respiratory Rate 22 H 21 H 21 H Blood Pressure 133/52 L 125/60 120/61 Pulse Oximetry 98 97 96 Oxygen Delivery Simple Face Mask Simple Face Mask Simple Face Mask Oxygen Flow Rate 10 10 10 04/18/24 23:21 04/18/24 23:31 04/18/24 23:41 Temperature Pulse Rate 97 100 97 Respiratory Rate 22 H 17 17 Blood Pressure 141/54 H 139/57 L 139/61 Pulse Oximetry 95 92 93 Oxygen Delivery Simple Face Mask Nasal Cannula Nasal Cannula Oxygen Flow Rate 6 4 4 04/19/24 00:00 04/19/24 00:09 04/19/24 02:00 Temperature Pulse Rate 97 99 Respiratory Rate Blood Pressure Pulse Oximetry 92 Oxygen Delivery Nasal Cannula Oxygen Flow Rate 4 04/19/24 04:05 04/19/24 04:00 04/19/24 00:00 Temperature 97.7 F 98.7 F Pulse Rate 105 H 96 Respiratory Rate 18 18 Blood Pressure 155/75 H 147/70 H Pulse Oximetry 95 92 90 Oxygen Delivery Nasal Cannula Oxygen Flow Rate 4 04/19/24 04:00 04/19/24 06:00 04/19/24 08:00 Temperature 98.0 F Pulse Rate 100 96 102 H Respiratory Rate 12 Blood Pressure 144/75 H Pulse Oximetry 92 Oxygen Delivery Oxygen Flow Rate 04/19/24 08:50 04/19/24 12:00 04/19/24 08:00 Temperature 97.9 F Pulse Rate 90 94 Respiratory Rate 20 Blood Pressure 138/66 Pulse Oximetry 92 93 Oxygen Delivery Nasal Cannula Oxygen Flow Rate 1 Exam Narrative: General: Fair appearing, no acute distress. HEENT: Atraumatic, PERRL, EOM, moist mucosa, anicteric. NECK: Supple. Lungs: Clear bilaterally. Heart: RRR, no murmurs. Abdomen: Soft, non-tender, non-distended, +ve bowel sounds X4 quadrants. Extremities: Acyanotic, no clubbing, no edema, 2+ radial and pedal pulses. Skin: Warm and dry with no lesions. Neuro: Well oriented. CN II-XII grossly intact. Psych: Calm and co-operative. H&P: Results Labs Labs: Short CBC 04/19/24 Range/Units 03:26 WBC 13.9 H (4.5-10.0) K/mm3 Hgb 11.2 L (12.0-15.0) g/dL Hct 36.7 L (37.0-47.0) % Plt Count 288 (150-375) k/mm3 [facility] 04/19/24 03:26 Sodium 139 Potassium 4.4 Chloride 103 Carbon Dioxide 27 BUN 11 Creatinine 0.70 Glucose 184 H Calcium 8.8 Cardiac Enzymes 04/18/24 04/19/24 Range/Units 17:05 03:26 Troponin I < 0.012 < 0.012 (0.000-0.034) ng/mL Liver Function 04/19/24 Range/Units 03:26 Total Bilirubin 0.5 (0.2-1.3) mg/dL AST 43 H (14-36) U/L ALT 28 (6-35) U/L Alkaline Phosphatase 116 (38-126) U/L Albumin 4.3 (3.5-5.1) g/dL Urine 04/18/24 Range/Units 17:05 Urine Color Yellow (Yellow) Urine Appearance Clear (Clear) Urine pH 8.5 (5.0-9.0) Ur Specific [place] > 1.045 H (1.001-1.035) Urine Protein Negative (Negative) mg/dL Urine Glucose (UA) Negative (Negative) mg/dL Assessment and Plan Assessment and plan (1) Food impaction of esophagus: Code(s): T18.128A - Food in esophagus causing other injury, initial encounter; W44.F3XA - Food entering into or through a natural orifice, initial encounter Status: Acute Assessment and Plan: - s/p EGD with extraction and pushing down large amount of retained food in the mid and distal esophagus. - Long-procedure, almost 3 hrs per GI. - Will possibly need transfer to a tertiary facility for further w/u and mgt. - Maintain NPO for now. - Awaiting further recommendations per GI. (2) Anemia: Code(s): D64.9 - Anemia, unspecified Status: Acute Assessment and Plan: - Hgb appears stable. - Monitor for now. (3) Bipolar 1 disorder: Code(s): F31.9 - Bipolar disorder, unspecified Status: Acute Assessment and Plan: - Appears stable. - Monitor for now with NPO status. (4) Anxiety: Code(s): F41.9 - Anxiety disorder, unspecified Status: Acute Assessment and Plan: - Stable. - Monitor. (5) Hypertension: Qualifiers: Hypertension type: primary hypertension Qualified Code(s): I10 - Essential (primary) hypertension Code(s): I10 - Essential (primary) hypertension Status: Acute Assessment and Plan: - BP fairly well controlled. - Monitor with NPO status for now. (6) Coronary artery disease: Code(s): I25.10 - Atherosclerotic heart disease of [place] coronary artery without angina pectoris Status: Acute Assessment and Plan: - Pt on aspirin, metoprolol and statin. - Monitor for now. Plan - Awaiting further recommendations per GI, may possibly need transfer to tertiary facility per pt conversation with GI, pt states. Quality VTE Prophylaxis VTE prophylaxis: mechanical ordered Hospitalist MIPS Advance Care Plan I have confirmed that the patient's Advanced Care Plan is present, code status is documented, or surrogate decision maker is listed in patient medical record.: Yes Medication Reconciliation I have utilized all available resources to obtain, update and review the patients current medications (includes all prescriptions, OTC, herbals, cannabis, and nutritional supplements).: Yes
--- NOTE | 2024-04-19 15:24 | P.PNAN_ITS ---
Anes - Prog Note Post-Op Date/Time: 04/19/24 15:24 Cardiovascular status: normal Respiratory status: normal Airway patency: baseline Mental status: baseline Post-Op hydration status: normal Vital Signs: Last Vital Signs Temp 36.6 C 04/19/24 12:00 Pulse 90 04/19/24 12:00 Resp 20 04/19/24 12:00 BP 138/66 04/19/24 12:00 Pulse Ox 93 04/19/24 12:00 O2 Del Method Nasal Cannula 04/19/24 08:50 O2 Flow Rate 1 04/19/24 08:50 Pain Score (VAS): 0 I/O: Intake & Output 04/18/24 04/19/24 04/19/24 23:59 07:59 15:59 Intake Total 2000 Output Total 1500 Balance 1999 -1499 Laboratory Tests 04/19/24 03:26 04/19/24 03:26 04/18/24 04/18/24 04/18/24 17:05 17:36 23:21 WBC RBC Hgb Hct MCV MCH MCHC RDW Plt Count MPV Immature Gran % (Auto) Neut % (Auto) Lymph % (Auto) [place] % (Auto) Eos % (Auto) Baso % (Auto) Lymph # (Auto) [place] # (Auto) Eos # (Auto) Baso # (Auto) Abs Immat Gran (auto) Absolute Neuts (auto) Absolute Nucleated RBC Nucleated RBC % Sodium Potassium Chloride Carbon Dioxide Anion Gap BUN Creatinine Estim Creat Clear Calc Estimated GFR Glucose POC Capillary Glucose 186 H Lactic Acid 1.9 Calcium Total Bilirubin AST ALT Alkaline Phosphatase Troponin I < 0.012 Total Protein Albumin Urine Color Yellow Urine Appearance Clear Urine pH 8.5 Ur Specific [place] > 1.045 H Urine Protein Negative Urine Glucose (UA) Negative Urine Ketones Negative Ur Blood (Man) Negative Urine Nitrate Negative Urine Bilirubin Negative Urine Urobilinogen 0.2 Leukocyte Esterase Rfl Negative 04/19/24 03:26 WBC 13.9 H RBC 4.33 Hgb 11.2 L Hct 36.7 L MCV 84.8 MCH 25.9 L MCHC 30.5 L RDW 15.1 H Plt Count 288 MPV 11.7 H Immature Gran % (Auto) 1.0 H Neut % (Auto) 87.6 H Lymph % (Auto) 9.0 L [place] % (Auto) 2.2 L Eos % (Auto) 0.0 Baso % (Auto) 0.2 Lymph # (Auto) 1.25 [place] # (Auto) 0.3 Eos # (Auto) 0.0 Baso # (Auto) 0.0 Abs Immat Gran (auto) 0.14 H Absolute Neuts (auto) 12.2 H Absolute Nucleated RBC 0.000 Nucleated RBC % 0.0 Sodium 139 Potassium 4.4 Chloride 103 Carbon Dioxide 27 Anion Gap 9 BUN 11 Creatinine 0.70 Estim Creat Clear Calc 75 Estimated GFR > 60 Glucose 184 H POC Capillary Glucose Lactic Acid Calcium 8.8 Total Bilirubin 0.5 AST 43 H ALT 28 Alkaline Phosphatase 116 Troponin I < 0.012 Total Protein 7.0 Albumin 4.3 Urine Color Urine Appearance Urine pH Ur Specific [place] Urine Protein Urine Glucose (UA) Urine Ketones Ur Blood (Man) Urine Nitrate Urine Bilirubin Urine Urobilinogen Leukocyte Esterase Rfl Post-procedural complaints: none Patient Feedback: Patient satisfied with anesthetic care.
--- NOTE | 2024-04-20 00:29 | PC.NURSE ---
Patient transferred to [facility] at 0020 in stable condition. All belongings sent with the patient. Report called to receiving RN at approx [phone].
[2024-04-20] MEDS: HYDROmorphone HCL INJ (*CRX) 1 MG/ML SYR 0.5 MG IV PUSH ×3 (00:48→12:38)
[2024-04-20] MEDS: oxyCODONE (*CRX) 5 MG/5 ML ORAL SOLN IR PO (05:14)
[2024-04-20 06:09] VITALS: BP 148/52; PULSE 98; RESP 18; TEMP 36.7; O2SAT 90
[2024-04-20 07:04] LABS: Basophils Percent Auto 0.2 % (0.2-1.2); Eosinophils Absolute Auto 0.1 K/mm3 (0-0.3); Eosinophils Percent Auto 0.4 % (0-4.4); Hematocrit 35.5 % (37.0-47.0); Hemoglobin 10.3 g/dL (12.0-15.0); Immature Granulocyte Absolute 0.06 K/mm3 (0.00-0.031); Immature Granulocyte Percent A 0.5 % (0-0.5); Immature Platelet Fraction Pct 7.3 % (0.9-11.2); Lymphocytes Absolute Auto 2.17 K/mm3 (0.9-3.2); Lymphocytes Percent Auto 16.8 % (18.3-44.2); Mean Corpuscular Hemoglobin 25.9 pg (26-34); Mean Corpuscular Volume 89.2 fl (80-100); Mean Platelet Volume 11.5 fl (7.4-10.4); Monocytes Absolute Auto 1.2 K/mm3 (0.1-0.6); Neutrophils Absolute Auto 9.5 K/mm3 (1.3-6.7); Neutrophils Percent Auto 73.1 % (45.5-73.1); Platelet Count Result 228 k/mm3 (150-375); Red Blood Count 3.98 M/mm3 (4.2-5.4); Red Cell Distribution Width 15.4 % (11.5-14.5); White Blood Count 12.9 K/mm3 (4.5-10.0)
[2024-04-20 07:43] LABS: Platelet Estimate Adequate (Adequate)
[2024-04-20 07:44] LABS: Large Platelets Present
[2024-04-20 07:45] LABS: Anisocytosis 1+; Ovalocytes 1+; Schistocytes None Seen
[2024-04-20 08:03] LABS: Alanine Aminotransferase 43 U/L (6-35); Albumin Level 3.7 g/dL (3.5-5.1); Alkaline Phosphatase 101 U/L (38-126); Anion Gap 6 mmol/L (4-12); Aspartate Amino Transferase 80 U/L (14-36); Bilirubin,Total 0.6 mg/dL (0.2-1.3); Blood Urea Nitrogen 13 mg/dL (7-17); Calcium 8.4 mg/dL (8.4-10.2); Carbon Dioxide 28 mmol/L (22-30); Chloride 105 mmol/L (98-107); Estimated CRCL calculation 75 ml/min; Estimated Glomerular Filt Rate > 60; Glucose 150 mg/dL (65-110); Potassium 3.8 mmol/L (3.4-5.0); Sodium 139 mmol/L (137-145)
[2024-04-20 08:42] LABS: Glucose Point of Care 152 mg/dl (65-105)
[2024-04-20 12:13] LABS: Glucose Point of Care 171 mg/dl (65-105)
[2024-04-20] MEDS: SODIUM CHLORIDE 0.9% IV 1,000 ML 100 ML IV CONT (12:34)
[2024-04-20] MEDS: HYDROcodone/acetaminophen (*CRX) 7.5-325 MG TABLET 1 TAB PO (16:54)
[2024-04-20 17:05] LABS: Glucose Point of Care 103 mg/dl (65-105)
--- NOTE | 2024-04-20 17:11 | PM.DS ---
DS: Admitting Diagnosis Discharge Date 04/20/2024 Admitting Diagnosis Chest Discomfort. DS: Discharge Diagnosis Discharge Diagnosis (1) Food impaction of esophagus: Code(s): T18.128A - Food in esophagus causing other injury, initial encounter; W44.F3XA - Food entering into or through a natural orifice, initial encounter Status: Acute Assessment and Plan: - s/p EGD with extraction and pushing down large amount of retained food in the mid and distal esophagus. - Long-procedure, almost 3 hrs per GI. - Patient given appt to f/u with [facility] for further work-up. - Tolerating diet well with some slight soreness to neck. - Advised to avoid meats for now until sees GI outpatient. (2) Anemia: Code(s): D64.9 - Anemia, unspecified Status: Acute Assessment and Plan: - Hgb stable inpatient. (3) Bipolar 1 disorder: Code(s): F31.9 - Bipolar disorder, unspecified Status: Acute Assessment and Plan: - Stable inpatient. (4) Anxiety: Code(s): F41.9 - Anxiety disorder, unspecified Status: Acute Assessment and Plan: - Stable inpatient. (5) Hypertension: Qualifiers: Hypertension type: primary hypertension Qualified Code(s): I10 - Essential (primary) hypertension Code(s): I10 - Essential (primary) hypertension Status: Acute Assessment and Plan: - Fairly well controlled. (6) Coronary artery disease: Code(s): I25.10 - Atherosclerotic heart disease of [place] coronary artery without angina pectoris Status: Acute Assessment and Plan: - Pt on aspirin, metoprolol and statin. - Resume home meds on discharge. Plan - Discharge Home and f/u with GI at [facility]. DS: Summary Hospital Course Reason for hospitalization: Chest Discomfort. Hospital Course: Patient presented to the ER with reports of chest discomfort that had been worsening since prior to the day she presented. She described the symptoms as a tight band that radiated from her chest to her back. Patient also reported difficulty swallowing at times, reporting only saliva coming up from her throat to her mouth, with trouble swallowing solid foods. Symptoms were also associated with nausea. Initial work-up labs showed WBC 10.4, Hgb 11.2 otherwise unremarkable, including 2 negative troponin. EKG showed normal sinus rhythm, nonspecific T-wave changes, no ST elevations or depressions. CTA was obtained from triage which showed a large volume of material in the distal esophagus, possibly related to an esophageal stricture. Patient was not able to tolerate p.o. intake in the ER, only spitting up saliva. Gastroenterology was consulted and patient was taken for an emergent EGD that showed a large amount of retained food in the mid and distal esophagus, that were extracted per GI. Esophagus was normal after being cleared, with no ulcers or masses noted. Her stomach also did not have any ulcers or masses. Patient has been able to tolerate soft foods prior to her discharge, and was advised to avoid meats per GI. Patient has been given an appt to follow-up with GI at [facility], for further work-up on her condition. Repeat soft-tissue neck and chest did not show any subcutaneous emphysema. Patient calm on bedrest with no signs of acute distress noed or reported prior to discharge. Status at Discharge Functional status at discharge: independent ambulation Overall status at discharge: patient is progressing back to baseline Time Spent with Patient Time attestation: Total time spent providing and/or coordinating discharge services: Time spent: Less than 30 minutes Exam Narrative: General: Fair appearing, no acute distress. HEENT: Atraumatic, PERRL, EOM, moist mucosa, anicteric. NECK: Supple, no redness or edema noted. Lungs: Clear bilaterally. Heart: RRR, no murmurs. Abdomen: Soft, non-tender, non-distended, +ve bowel sounds X4 quadrants. Extremities: Acyanotic, no clubbing, no edema, 2+ radial and pedal pulses. Skin: Warm and dry with no lesions. Neuro: Well oriented. CN II-XII grossly intact. Psych: Calm and co-operative. DS: Data Data Completed and Pending Labs on day of discharge: Labs from last 24 hours 04/20/24 04/20/24 04/20/24 17:01 12:08 08:39 WBC RBC Hgb Hct MCV MCH MCHC RDW Plt Count MPV Immature Gran % (Auto) Neut % (Auto) Lymph % (Auto) [place] % (Auto) Eos % (Auto) Baso % (Auto) Lymph # (Auto) [place] # (Auto) Eos # (Auto) Baso # (Auto) Abs Immat Gran (auto) Absolute Neuts (auto) Absolute Nucleated RBC Nucleated RBC % Platelet Estimate Large Platelets % Immature Plt Fraction Anisocytosis Ovalocytes Schistocytes Sodium Potassium Chloride Carbon Dioxide Anion Gap BUN Creatinine Estim Creat Clear Calc Estimated GFR Glucose POC Capillary Glucose 103 171 H 152 H Calcium Total Bilirubin AST ALT Alkaline Phosphatase Total Protein Albumin 04/20/24 06:54 WBC 12.9 H RBC 3.98 L Hgb 10.3 L Hct 35.5 L MCV 89.2 D MCH 25.9 L MCHC 29.0 L RDW 15.4 H Plt Count 228 MPV 11.5 H Immature Gran % (Auto) 0.5 Neut % (Auto) 73.1 Lymph % (Auto) 16.8 L [place] % (Auto) 9.0 H Eos % (Auto) 0.4 Baso % (Auto) 0.2 Lymph # (Auto) 2.17 [place] # (Auto) 1.2 H Eos # (Auto) 0.1 Baso # (Auto) 0.0 Abs Immat Gran (auto) 0.06 H Absolute Neuts (auto) 9.5 H Absolute Nucleated RBC 0.000 Nucleated RBC % 0.0 Platelet Estimate Adequate Large Platelets Present % Immature Plt Fraction 7.3 Anisocytosis 1+ Ovalocytes 1+ Schistocytes None seen Sodium 139 Potassium 3.8 Chloride 105 Carbon Dioxide 28 Anion Gap 6 BUN 13 Creatinine 0.70 Estim Creat Clear Calc 75 Estimated GFR > 60 Glucose 150 H POC Capillary Glucose Calcium 8.4 Total Bilirubin 0.6 AST 80 H ALT 43 H Alkaline Phosphatase 101 Total Protein 7.0 Albumin 3.7 Discharge Plan Discharge Attending physician on discharge: Reji Villafuerte Discharging Clinician: Leo Rendon Anticipated Discharge Date/Time: 04/20/24 17:28 Patient Disposition: Home, Self-Care Activity: as tolerated Diet: heart healthy, diabetic and other - see discharge instructions Discharge Instructions: Avoid meats until you follow-up with gastrpentorologist. Patient Instructions: Antibiotic Form Stand Alone Forms: General Discharge Information Follow-up/Referrals: Martha Murphy, CABLE ENGINEER [Primary Care Provider] - Discharge Medications: Continued divalproex 500 mg tablet extended release 24 hr 1,000 mg PO HS zolpidem 10 mg tablet 10 mg PO HS bupropion HCl 150 mg tablet extended release 24 hr 150 mg PO DAILY diazepam 5 mg tablet 5 mg PO DAILY PRN (Reason: Anxiety) quetiapine 400 mg tablet 400 mg PO QHS ibuprofen 800 mg tablet 800 mg PO BID PRN (Reason: pain) Qty: 30 2RF aspirin [Adult Low Dose Aspirin] 81 mg tablet,delayed release (DR/EC) 81 mg PO DAILY atorvastatin 40 mg tablet 40 mg PO DAILY Qty: 90 3RF triamcinolone acetonide 0.1 % cream 1 applic topical BID Qty: 30 0RF Rx Instructions: around lips as needed acetaminophen 325 mg Tablet 650 mg PO Q6H PRN (Reason: pain or fever) cholecalciferol (vitamin D3) 50 mcg (2,000 unit) Capsule 50 mcg PO DAILY metoprolol tartrate 25 mg tablet 25 mg PO DAILY Qty: 90 1RF metformin 1,000 mg tablet 1,000 mg PO BID Qty: 180 1RF oxybutynin chloride 5 mg tablet 5 mg PO BID Qty: 60 5RF omeprazole 40 mg capsule,delayed release(DR/EC) See Rx Instructions .ROUTE .COMPLEX Qty: 90 1RF Dose Instruction: TAKE 1 CAPSULE BY MOUTH DAILY Rx Instructions: TAKE 1 CAPSULE BY MOUTH DAILY Date of admission: 04/19/24 00:55 Primary Care Provider: Martha Murphy Admitting Provider: Aníbal Dubose Attending physician on admission: Aníbal Dubose Condition: Stable Quality If No VTE Prophylaxis Answer both mechanical and pharmacologic: Reason no mechanical VTE proph: low risk/not indicated Reason no pharmacologic proph: low risk/not indicated Hospitalist MIPS Heart Failure (Exclusion) Patient has history of Heart Transplant or Left Ventricular Assistive Device?: No IF YES, STOP HERE Heart Failure (Qualifier) Patient has current or prior documentation of LVEF less than or equal to 40%, or mod/servere depressed LVSF?: No IF NO, STOP HERE
== END 2024-04-20 18:00 | disposition home or self-care (01) ==
LOC: ANHED 16:24 → ANHENDO 18:06 → ANHIMU 04-19 21:15 → ANH3MEDSUR 04-20 17:29 → ANHIMU 04-21 07:21 → ANH3MEDSUR 04-21 07:21
PROVIDERS: Internal Medicine Gastroenterology; Registered Nurse; Student in an Organized Health Care Education/Training Program; Admitting Provider Internal Medicine; Emergency Provider Emergency Medicine; PCP Nurse Practitioner; Visit Provider General Practice
PROC: 0DJ08ZZ Inspection of Upper Intestinal Tract, Via Natural or Artificial Opening Endoscopic (ICD-10-PCS; CPT 43235; principal; 2024-04-18 19:00)
DX: T18.128A Food in esophagus causing other injury, initial encounter (principal); W44.F3XA Food entering into or through a natural orifice, initial encounter; K22.2 Esophageal obstruction; D64.9 Anemia, unspecified; F31.9 Bipolar disorder, unspecified; F41.9 Anxiety disorder, unspecified; I10 Essential (primary) hypertension; I25.10 Atherosclerotic heart disease of native coronary artery without angina pectoris; E11.9 Type 2 diabetes mellitus without complications; K21.9 Gastro-esophageal reflux disease without esophagitis; E78.00 Pure hypercholesterolemia, unspecified; F17.290 Nicotine dependence, other tobacco product, uncomplicated; K76.9 Liver disease, unspecified; E66.9 Obesity, unspecified; Z68.34 Body mass index [BMI] 34.0-34.9, adult; I25.2 Old myocardial infarction; Z79.82 Long term (current) use of aspirin; Z79.84 Long term (current) use of oral hypoglycemic drugs; Z79.899 Other long term (current) drug therapy; Z95.5 Presence of coronary angioplasty implant and graft; Z90.710 Acquired absence of both cervix and uterus; Z98.890 Other specified postprocedural states
CPT/HCPCS: 43247; 36415; 70490; 71046; 71250; 71275; 74150; 80053; 81003; 82948; 83605; 83690; 83735; 83880; 84484; 85025; 85055; 85610; 85730; 93005; 94640; 96361; 96374; 96375; 96376; 99285; A9270; G0378; J0330; J1100; J1171; J2003; J2270; J2405; J2704; J7030; J7120; Q9967

== ENCOUNTER 2024-09-06 15:42 | Outpatient (CLI) | payer MEDICARE, MEDICAID, SELFPAY ==
--- NOTE | ~2024-09-06 | MM_ITS ---
EXAMINATION: MM screening [facility] BI w danish HISTORY: Screening TECHNIQUE: Craniocaudal and mediolateral oblique 3-D tomosynthesis images were obtained and synthetic 2-D images were generated. CAD analysis was submitted and interpreted. COMPARISON: No prior mammogram is available for comparison at this institution. BREAST PARENCHYMAL COMPOSITION: Not dense: There are scattered areas of fibroglandular density. FINDINGS: There is no evidence of suspicious mass, calcification, or architectural distortion to sugg est malignancy in either breast. There has been no suspicious interval change. IMPRESSION: 1. No mammographic evidence of malignancy. 2. Recommend routine screening mammography in one year. BI-RADS Category 1: Negative Reviewed, dictated and finalized at location A.
--- OUTSIDE RECORDS SUMMARY | 2024-09-06 17:46 | XMS_ITS | Encounter Summary ---
Author Organization [facility] Address [address] [place] [address] Care Team Providers Care Public Health Inspector Name Role Phone Unavailable Primary Care Provider Unavailabl e Encounter Details Date Type Department Care Team (Latest Contact Info) Description 03/23/2018 [facility] , Denise Alvarado MD Social History Tobacco Use Types Packs/Day Years Used Date Smoking Tobacco: Never Assessed Comments Unknown Sex and Gender Information Value Date Recorded Sex Assigned at Not on file Legal Sex Female 7:56 PM CDT Gender Identity Not on file Sexual Orientation Not on file documented as of this encounter Plan of Treatment Not on file documented as of this encounter Visit Diagnoses Not on filedocumented in this encounter
--- OUTSIDE RECORDS SUMMARY | 2024-09-06 17:46 | XMS_ITS | Clinical Summary ---
Author Organization [facility] Medical Office Building [address] Address [address] [place] [address] Care Team Providers Care Jewelry Store Manager Name Role Phone Rhona Rivas Primary Care Provider [phone] Allergies Active Allergy Reactions Criticality Noted Date Comments Tramadol Medications zolpidem (AMBIEN) 10 mg tablet take 1 tablet by oral route every day at bedtime 0 0 03/31/20 13 Active QUEtiapine (SEROquel) 400 mg tablet take 2 Tablet by oral route every day 0 0 03/31/20 13 Active Additional Information Patient taking differently:400 mgoral Nightly, Two Tablets At Bedtime, Reported on 12/23/2023 omeprazole (PriLOSEC) 20 mg capsule take 1 capsule by oral route every day before a meal 0 0 03/31/20 13 Active Additional Information Patient taking differently: 40 mg oral Daily, Reported on 12/23/2023 diazePAM (VALIUM) 5 mg tablet take 1 tablet by oral route 2 times every day 0 0 03/31/20 13 Active divalproex ER (DEPAKOTE ER) 500 mg 24 hr tablet Take 1 tablet (500 mg total) by mouth Take two tablets at bedtime 2 09/09/19 19 Active aspirin 81 mg enteric coated tabletIndications:C oronary artery disease involving [place] coronary artery of [place] heart without angina pectoris Take 1 tablet (81 mg total) by mouth daily 30 tablet 11 09/30/19 19 Active nitroglycerin (NITROSTAT) 0.[address] 1 tablet (0.3 mg total) under the tongue every 5 (five) minutes as needed for chest pain 25 tablet 3 05/27/20 20 Active buPROPion XL (WELLBUTRIN XL) 150 mg 24 hr tablet Take 1 tablet (150 mg total) by mouth daily 09/20/19 20 Active metFORMIN (GLUCOPHAGE) 500 mg tablet Take 2 tablets (1,000 mg total) by mouth 2 (two) times a day with meals 04/09/20 21 025 Active evolocumab (REPATHA) syringe syringe Inject 1 mL (140 mg total) under the skin every 14 (fourteen) days 2 mL 12/27/19 22 Active Additional Information Patient not taking.Reported on 12/23/2023 metoprolol tartrate (LOPRESSOR) 25 mg immediate release tabletIndications:C oronary atherosclerosis of akut[place] coronary artery,Coronary artery disease involving ak[place] coronary artery of akut[place] heart without angina pectoris,Essential hypertension,Palpit ations TAKE 1 TABLET(25 MG) BY MOUTH TWICE DAILY 180 tablet 1 03/24/20 22 Active atorvastatin (LIPITOR) 40 mg tabletIndications:C oronary atherosclerosis of ak[place] coronary artery,Coronary artery disease involving ak[place] coronary artery of akut[place] heart without angina pectoris,Mixed hyperlipidemia Take 1 tablet (40 mg total) by mouth daily 90 tablet 1 10/28/19 23 Active oxyBUTYnin (DITROPAN) 5 mg tablet Take 1 tablet (5 mg total) by mouth 2 (two) times a day 10/27/19 24 Active Active Problems Problem Noted Date Diagnosed Date Encounter for Medicare annual wellness exam 12/16 Overview (12/28/2023): PMH: Last pap: Last mammogram: Last dexa: Last PSA: Last colonoscopy/cologuard: Last Hep C: 04/2023 Last Hep B: 04/2023 Last tdap: Last Prevnar/pneumovax: Last Shingrix: Last eye exam: Family history of aortic dissection 12/23/2023 Assessment & Plan (12/23/2023 4:19 PM CDT): In mother, . We will establish care with Cardiology as needed. States she had an ultrasound of her heart that was normal a few years ago. Bipolar and related disorder 12/23/2023 Assessment & Plan (12/23/2023 4:23 PM CDT): Chronic. Stable. Need to clarify bipolar 1 or 2. Patient's psychiatrist Dr. Rivera recently retired. She has an appointment in 3 months with new psychiatrist. - if needed we will refill her bupropion, diazepam, Depakote, Seroquel, zolpidem until she was able to meet with new psychiatrist. Gastroesophageal reflux disease without esophagi tis 12/23/2023 Nicotine dependence, uncomplicated 10/12/2019 Assessment & Plan (12/23/2023 4:17 PM CDT): Patient currently vaping. She quit 8 years ago but was smoking 2 packs per day for 46 years. - low-dose lung cancer screening CT ordered. Coronary artery disease invo lving akutan coronary artery of akut[place] heart without angina pectoris 04/01/2017 Overview (04/01/2017): Inferior STEMI 2008, status post JONNIE to the occluded mid large RCA Assessment & Plan (12/23/2023 4:18 PM CDT): Inferior STEMI 2008, status post JONNIE to the occluded mid large RCA - continue ASA 81 mg daily, atorvastatin 40 mg daily - patient previously on Repatha, we will review lipid panel and make further recommendations Assessment & Plan (04/01/2017 6:42 PM SUGAR COATING HAND): Inferior STEMI 2008, status post 3.5 mm JONNIE to the occluded mid large RCA by Dr. Golden at [facility]. Had a 40% circumflex stenosis but not much other disease. Coronary artery disease is stable without angina Essential hypertension 04/01/2017 Assessment & Plan (12/23/2023 4:18 PM CDT): Chronic. Controlled. Continue metoprolol 25 mg daily. Assessment & Plan (04/01/2017 6:35 PM SUGAR COATING HAND): Hypertension is at goal Medical therapy Mixed hyperlipidemia 04/01/2017 Assessment & Plan (12/23/2023 4:18 PM CDT): Chronic. See plan above. Type 2 diabetes mellitus without complication Overview (10/10/2016): Type 2 diabetes mellitus without complication, without long-term current use of insulin Assessment & Plan (12/23/2023 4:18 PM CDT): Chronic. Controlled. Continue metformin 1000 mg twice daily. Will review recent labs. Anxiety 08/11/2016 Overview (10/10/2016): Anxiety Assessment & Plan (12/23/2023 4:23 PM CDT): Chronic. Moderately controlled. Often has anxiety regarding medical issues. Continue current regimen. - f/u with with new psychiatrist as scheduled in the next 3 months Resolved Problems Problem Noted Date Diagnosed Date Resolved Date Former smoker 04/01/2017 10/12/2019 Assessment & Plan (04/01/2017 6:34 PM SUGAR COATING HAND): Now using E cigarettes Positive antinuclear antibody 10/25/2013 12/23/2023 Trochanteric bursitis 10/25/20132023 Arthralgia of multiple joints 10/25/2013 12/23/2023 Immunizations Immunization Administration Dates Next Due Influenza, Quadrivalent, Spl it, Preservative Free, Intramuscular 05/17/2015 Influenza, Trivalent, Preser vative Free, Intramuscular 05/05/2014 Influenza, Unspecified 02/15/2023(Deferr ed: Patient decision),02/15/2022(Deferred: Patient decision) Tdap 06/12/2018 Surgical History Surgery Date Site/Laterality Comments OTHER SURGICAL HISTORY Back OR x2 TOTAL KNEE ARTHROPLASTY Right Total Knee Replacement OTHER SURGICAL HISTORY Caesarean Section x3 HYSTERECTOMY Hysterectomy OTHER SURGICAL HISTORY Cervical disc OR CORONARY STENT PLACEMENT Coronary Stent Placement Medical History Medical History Date Comments Asthma Asthma Chronic obstructive pulmonar y disease (HCC) COPD Hx Other Medical Bipolar Disorde r Cardiovascular disease Coronary Artery Disease Myocardial infarction (HCC) Myoc ardial infarction Hyperlipidemia Hyperlipidemia Hx Other Medical cervical discec river and fusion 01/03/13; Comments: JFB 04/17/2014 - Trochanteric bursitis 10/25/2013 Positive antinuclear antibody 10/25/2013 Arthralgia of multiple joints 10/25/2013 Family History Medical History Relation Name Comments Coronary artery disease Father 2 Charissa nary Artery Bypass Graft; Other Mother 2 Healthy; Relation Name Status Comments Father 1 Alive Father 2 Mother 1 Alive Mother 2 Social History Tobacco Use Types Packs/Day Years Used Date Smoking Tobacco: Former Cigarettes 2 46 Q uit: 2016 Smokeless Tobacco: Never Tobacco Cessation:Ready to Q uit: Not Asked; Counseling Given: Not Answered Comments:e cigarettes Alcohol Use Standard Drinks/Week Comments Yes 0 (1 standard drink = 0.6 oz pur e alcohol) AUDIT-C Answer Date Recorded Q1: How often do you have a drink containing alcohol? Never 12/23/2023 Q2: How many drinks containi ng alcohol do you have on a typical day when you are drinking? Patient does not drink Q3: How often do you have si x or more drinks on one occasion? Never 12/23/2023 PHQ-2 Answer Date Recorded PHQ-2 Total Score (If total score is 3 or more points, staff should administer the PHQ-9) 2 12/23/2023 Comments No Sex and Gender Information Value Date Recorded Sex Assigned at Not on file Legal Sex Female 10:57 AM SUGAR COATING HAND Gender Identity Not on file Sexual Orientation Not on file Obstetrics History Last Filed Vital Signs Vital Sign Reading Time Taken Comments Blood Pressure 124/80 12/23/2023 2:16 PM CDT Pulse 74 12/23/2023 2:16 PM CDT Temperature 36.7 C (98 F) 12/23/2023 2:16 PM CDT Respiratory Rate 16 12/23/2023 2:16 PM CDT Oxygen Saturation 98% 12/23/2023 2:16 PM CDT Inhaled Oxygen Concentration - - Weight 89.2 kg (196 lb 9.6 oz) 12/23/2023 2:16 P M CDT Height 160 cm (5' 3 ) 12/23/2023 2:16 PM CDT Body Mass Index 34.83 12/23/2023 2:16 PM CDT Plan of Treatment Health Maintenance Due Date Last Done Comments Albumin Creatinine Ratio, Urine 1960 Breast Cancer Screening-Mammogram 1960 Colon Cancer Screening-Colonoscopy 1960 Hemoglobin A1C 1960 Dilated Eye Exam 1960 Foot Exam 1960 Hepatitis B Screening 1978 Regular Well Visit/Exam 18-64 1978 Pneumococcal vaccine <65 (1 of 2 - PCV) 12/19/1979 Lung Cancer Screening 2010 Zoster Vaccine (1 of 2) 2010 Lipid Panel 04/09/2022 04/09/2021, 05/3 05/2018, 04/01/2017, Additional history exists Influenza Vaccine (#1) 2024 05/17/2015, 2013 Depression Screening 12/22/2024 12/23/2023, 12/23/19 24 eGFR 12/27/2024 12/28/2023 DTaP/Tdap/Td Vaccine (2 - Td or Tdap) 06/12/2028 06/12/2018 Hepatitis C Screening Completed 10/24/2013 Procedures Procedure Name Priority Date/Time Associated Diagnosis Comments COMPREHENSIVE METABOLIC PANEL Routine 12/28/2023 12:41 PM CDT POCT LIPID PANEL Routine 04/09/2021 3:06 PM SUGAR COATING HAND Lipid screening SERUM HEPATITIS C AB Routine 10/24/2013 1:57 PM CDT from Last 3 Months or Most Recently Relevant to Health Maintenance Results * (ABNORMAL) Comprehensive metabolic panel (12/28/2023 12:41 PM CDT) SCRIBED Sodium 142 137 - 145 mmol/L EXTERNAL LAB SCRIBED Potassium 4.2 3.4 - 5.0 mmol/L EXTERNAL LAB SCRIBED Chloride 101 98 - 107 mmol/L EXTERNAL LAB SCRIBED Carbon Dioxide 29 22 - 30 mmol/L EXTERNAL LAB SCRIBED Urea Nitrogen (BUN) 13 7 - 17 mg/dl EXTERNAL LAB SCRIBED Creatinine 0.70 0.7 - 1.0 mg/dl EXTERNAL LAB SCRIBED Glucose 81 65 - 110 mg/dl EXTERNAL LAB SCRIBED Calcium 9.7 8.4 - 10.2 mg/dl EXTERNAL LAB SCRIBED Albumin 4.4 3.5 - 5.1 g/dl EXTERNAL LAB SCRIBED Alanine Transaminase (ALT) 51(A) 6 - 35 Units/L EXTERNAL LAB SCRIBED Aspartate Transaminase (AST) 119(A) 14 - 36 Units/L EXTERNAL LAB SCRIBED eGFR in NonAfrican Gibraltarian >60 0 - 0 EXTERNAL LAB Blood Historical Provider LAB BLOOD ORDERABLES Yasmin l Result EXTERNAL LAB * POCT lipid panel (04/09/2021 3:06 PM SUGAR COATING HAND) Cholesterol, POC 191 mg/dL Comment:GLU = 100 HDL, POC 49 mg/dL Triglycerides, POC 229 mg/dL LDL Cholesterol POC 96 mg/dL Chol/HDL Ratio, POC 3.9 Non-HDL Cholesterol, POC 142 mg/dL Cholesterol Total, POC 191 mg/dL Capillary blood 04/09/2021 3 :06 PM SUGAR COATING HAND Santa Wheeler MD POINT OF CARE TEST ORDERABL ES Final Result * Serum Hepatitis C ab (10/24/2013 1:57 PM CDT) HCV ab Negative NEG HISTORICAL RESULTS Serum 10/24/2013 1:57 PM CDT Narrative HISTORICAL RESULTS - 10/25/2013 6:28 AM CDT Interpretive Data If confirmation is required, call Laboratory Customer Service to request sample to be sent to [facility] for Hepatitis C Virus (HCV) RNA Detection and Quantitation by Real-Time Reverse Quill Stripper-PCR (RT-PCR). Current interpretive data was last revised on 2011 us Emely Burr MD LAB BLOOD ORDER TREVIN Final Result Performing Organization Address City/[facility]/ZIP Co de Phone Number HISTORICAL RESULTS from Last 3 Months or Most Recently Relevant to Health Maintenance Insurance IDPA IDPA [facility] MEDICARE [facility] Address: [address] [address] [place] [address] Care Teams Jewelry Store Manager Relationship Specialty Start Date End Date Rhona Rivas PA [facility] [address] [place] [address] PCP - General Family Medicine 12/22/23
--- OUTSIDE RECORDS SUMMARY | 2024-09-06 17:46 | XMS_ITS | Clinical Summary ---
Author Organization [facility] Address [address] [place] [id number] Care Team Providers Care Advice Line Rn Name Role Phone Unavailable Primary Care Provider Unavailabl e Social History Tobacco Use Types Packs/Day Years Used Date Smoking Tobacco: Never Assessed Comments Unknown Sex and Gender Information Value Date Recorded Sex Assigned at Not on file Legal Sex Female 7:56 PM CDT Gender Identity Not on file Sexual Orientation Not on file Last Filed Vital Signs Vital Sign Reading Time Taken Comments Blood Pressure 130/80 04/11/2014 3:44 PM COAT TAILOR Pulse 86 04/11/2014 3:44 PM COAT TAILOR Temperature - - Respiratory Rate - - Oxygen Saturation - - Inhaled Oxygen Concentration - - Weight 73.9 kg (163 lb) 04/11/2014 3:44 PM COAT TAILOR Height 162.6 cm (5' 4 ) 04/11/2014 3:44 PM COAT TAILOR Body Mass Index 27.98 04/11/2014 3:44 PM COAT TAILOR Plan of Treatment Health Maintenance Due Date Last Done Comments Cervical Cancer Screening Pa p Smear (Age 30 to 64) Every 3 Years 1960 Colorectal Cancer Screening Colonoscopy (10 Years) 1960 Annual Physical 12/19/1963 Hepatitis C 1978 DTaP, Tdap and Td Vaccines ( 1 - Tdap) 12/19/1979 Cervical Cancer Screening Pa p with HPV Testing (Age 30 to 64) Every 5 Years 1990 Cervical Cancer Screening with HPV 1990 Mammogram Screening 2000 Pneumococcal Vaccine: 50+ Ye ars (1 of 1 - PCV) 2010 Zoster Vaccines (1 of 2) 2010 COVID-19 Vaccine ( - 2023-2 5 season) 2024 RSV Immunization or 60+ Years (1 - 1-dose 75+ series) 12/19/2035 Meningococcal B Vaccine Aged Out No l onger eligible based on patient's age to complete this topic Meningococcal Vaccine Aged Out No girish shady eligible based on patient's age to complete this topic RSV Immunizations Under 20 Months Aged Out No longer eligible based on patient's age to complete this topic
--- OUTSIDE RECORDS SUMMARY | 2024-09-06 17:46 | XMS_ITS | Clinical Summary ---
Author Organization [facility] [employer] Address [address] [place] [address] Care Team Providers Care Corporate Associate Name Role Phone Jae Gaurav Wolfgang DO Primary Care Provider [phone] Source Comments [facility] [employer],non-owned Affiliates and Associated Physician Practices is amultiple site organization consisting of ambulatory clinics and hospital sitesin [place], [place], [place] and [place]. This disclosure is being madepursuant to the Care Everywhere program and may not contain all information available regarding this patient. Last updated 18.[facility] [employer] Allergies No known active allergies Medications * Be aware that medications may not be up to date on this document. Alwaysverify current medications with the patient. metFORMIN (Glucophage) 500 MG tablet Take 2 (two) tablets by mouth 2 times daily 1 10/14/19 25 Active oxyBUTYnin (Ditropan) 5 MG tablet Take 1 (one) tablet by mouth 2 times daily 4 Active atorvastatin (Lipitor) 40 MG tablet Take 1 (one) tablet by mouth at bedtime Active omeprazole (PriLOSEC) 40 MG capsule Take 1 (one) capsule by mouth daily before breakfast Active metoprolol tartrate IR (Lopressor) 25 MG tablet Take 1 (one) tablet by mouth 2 times daily Active aspirin EC (Ecotrin) 81 MG tablet Take 1 (one) tablet by mouth once daily Active divalproex DR (Depakote) 500 MG tablet Take 2 (two) tablets by mouth at bedtime Active buPROPion XL 24hr (Wellbutrin-XL) 150 MG tablet Take 1 (one) tablet by mouth once daily Active QUEtiapine (SEROquel) 200 MG tablet Take 2 (two) tablets by mouth at bedtime Active zolpidem (Ambien) 10 MG tablet Take 1 (one) tablet by mouth nightly as needed for Insomnia Active diazePAM (Valium) 5 MG tablet Take 1 (one) tablet by mouth 3 times daily as needed Active Social History Tobacco Use Types Packs/Day Years Used Date Smoking Tobacco: Former Cigarettes Smokeless Tobacco: Never Tobacco Cessation:Counseling Given: Not Answered Alcohol Use Standard Drinks/Week Comments Never 0 (1 standard drink = 0.6 oz pur e alcohol) Comments Unknown Sex and Gender Information Value Date Recorded Sex Assigned at Not on file Legal Sex Female 2:13 PM CDT Gender Identity Not on file Sexual Orientation Not on file Plan of Treatment Upcoming Encounters Date Type Department Care Team (Late st Contact Info) Description 10/12/2024 1:00 PM CDT Office Visit [facility] - [facility] [address] [place] [phone] Neal Leon MD [address] [place] [phone] Health Maintenance Due Date Last Done Comments COLOGUARD (AGES 45-75) - COL ON CA SCREENING 1960 COLON MONITORING 1960 COLONOSCOPY - COLON CA SCREENING 1960 CT COLONOGRAPHY - COLON CA SCREENING 1960 Colorectal Cancer Screening 1960 FIT - COLON CA SCREENING 1960 FLEX SIG - COLON CA SCREENING 1960 MAMMOGRAM 1960 PAP SMEAR 1960 HIV SCREENING 12/19/1975 HEPATITIS C SCREENING 12/14/1978 DTAP/TDAP/TD VACCINES (1 - Tdap) 12/19/1979 PNEUMOCOCCAL VACCINE 50+ (1 of 1 - PCV) 2010 ZOSTER VACCINE (1 of 2) 2010 COVID-19 VACCINE (1 - 2023-2 5 season) 2024 DEPRESSION SCREENING 05/18/2024 MEDICARE AWV CALENDAR YEAR 2024 INFLUENZA VACCINE (Season Ended) 2025 05/17/2015, 05/05/2014 Respiratory Syncytial Virus (RSV) Vaccine Pt: or over 60 yrs (1 - 1-dose 75+ series) 12/19/2035 HEPATITIS B VACCINE Aged Out No longe r eligible based on patient's age to complete this topic HIB VACCINE Aged Out No longer eligi ble based on patient's age to complete this topic HPV VACCINE Aged Out No longer eligi ble based on patient's age to complete this topic MENINGOCOCCAL (Group B) VACCINE SHARED DECISION-MAKING Aged Out No longer eligible based on patient's age to complete this topic MENINGOCOCCAL GROUPS A/C/Y/W VACCINE Aged Out No longer eligible b ased on patient's age to complete this topic Insurance UHC MANAGED MEDICARE ADV MEDICAID - [facility] MEDICAID - [facility] MEDICARE ADV Care Teams Corporate Associate Relationship Specialty Start Date End Date Gaurav Rowe DO [address] [place] [id number] PCP - General Internal Medicine 06/01/24
--- OUTSIDE RECORDS SUMMARY | 2024-09-06 17:46 | XMS_ITS | Continuity of Care Document ---
Author Organization [facility] Address [address] [place] [address] [address] [place] [address] Phone Care Team Providers Care Rest Room Matron Name Role Phone Sabine Malave Unavailable Unavailable Advance Directives Directive Yes / No Effective Date File Name No Information Encounters Encounter Description Practice Location Reason(s) For Visit Diagnoses Date Provider Providers Copied on Encounter [facility], [address], [place], [place], [id number], [place] tel:[phone] [facility] No Information 5-[address] Frieda Regalado. [address] , [address], [place], [address], [place]. tel:[phone] Family History Family Member Type Diagnosis Age At Onset No Information Payers Payer name Insurance type Covered constitution party ID Authoriza tion(s) No Information Social [...]
--- OUTSIDE RECORDS SUMMARY | 2024-09-06 17:46 | XMS_ITS | CONTINUITY OF CARE DOCUMENT ---
Author Name [email or web address] Address Unknown Organization [facility] Address [address] [place] [address] Phone [phone] Care Team Providers Care Relocation Commissioner Name Role Phone Isak Canales MD Unavailable [phone] ASIYA MCARTHUR MD Unavailable [phone] ASIYA MCARTHUR MD Unavailable [phone] INSURANCE PROVIDERS Payer name Policy type / Coverage type [place] red republican ID [facility] [facility] FAMILY SERVICES Medicaid 0 [id number] [facility] MEDICARE COMPLETE HMO Other [id number]
--- OUTSIDE RECORDS SUMMARY | 2024-09-06 17:47 | XMS_ITS | Referral Summary ---
Author Organization [facility] Medical Office Building [address] Address [address] [place] [address] Care Team Providers Care Flask Handler Name Role Phone Rhona Rivas Primary Care Provider [phone] Allergies Active Allergy Reactions Criticality Noted Date [...] enteric coated tabletIndications:C oronary artery disease involving [place] coronary artery of [place] heart without angina pectoris Take 1 tablet [...] mg immediate release tabletIndications:C oronary atherosclerosis of [place] coronary artery,Coronary artery disease involving [place] coronary artery of [place] heart without angina pectoris,Essential hypertension,Palpit ations TAKE 1 TABLET(25 MG) BY MOUTH TWICE DAILY 180 tablet 1 03/24/20 22 Active atorvastatin (LIPITOR) 40 mg tabletIndications:C oronary atherosclerosis of [place] coronary artery,Coronary artery disease involving [place] coronary artery of [place] heart without angina pectoris,Mixed hyperlipidemia Take 1 [...] CT ordered. Coronary artery disease invo lving [place] coronary artery of [place] heart without angina pectoris 04/01/2017 Overview (04/01/2017): [...] recommendations Assessment & Plan (04/01/2017 6:42 PM VICE PRESIDENT OF NEWS): Inferior STEMI 2008, status post 3.5 mm JONNIE to the occluded mid large RCA by Dr. Golden at [facility]. Had a 40% circumflex stenosis but not much other disease. Coronary artery disease is stable without angina Essential hypertension 04/01/2017 Assessment & Plan (12/23/2023 4:18 PM CDT): Chronic. Controlled. Continue metoprolol 25 mg daily. Assessment & Plan (04/01/2017 6:35 PM VICE PRESIDENT OF NEWS): Hypertension is at goal Medical therapy Mixed [...] 10/12/2019 Assessment & Plan (04/01/2017 6:34 PM VICE PRESIDENT OF NEWS): Now using E cigarettes Positive antinuclear antibody 10/25/2013 12/23/2023 Trochanteric bursitis 10/25/20132023 Arthralgia of multiple joints 10/25/2013 12/23/2023 Immunizations Immunization Administration Dates Next Due Influenza, Quadrivalent, Spl it, Preservative Free, Intramuscular 05/17/2015 Influenza, Trivalent, Preser vative Free, Intramuscular 05/05/2014 Influenza, Unspecified 02/15/2023(Deferr ed: Patient decision),02/15/2022(Deferred: Patient decision) Tdap 06/12/2018 Social History Tobacco Use Types Packs/Day Years [...] on file Legal Sex Female 10:57 AM VICE PRESIDENT OF NEWS Gender Identity Not on file Sexual Orientation [...] 12/23/2023 2:16 PM CDT Plan of Treatment Not on file Procedures Procedure Name Priority Date/Time Associated Diagnosis Comments COMPREHENSIVE METABOLIC PANEL Routine 12/28/2023 12:41 PM CDT POCT LIPID PANEL Routine 04/09/2021 3:06 PM VICE PRESIDENT OF NEWS Lipid screening SERUM HEPATITIS C AB Routine [...] Units/L EXTERNAL LAB SCRIBED eGFR in NonAfrican Icelandic >60 0 - 0 EXTERNAL LAB Blood Historical Provider LAB BLOOD ORDERABLES Yasmin luo Result EXTERNAL LAB * POCT lipid panel (04/09/2021 3:06 PM VICE PRESIDENT OF NEWS) Cholesterol, POC 191 mg/dL Comment:GLU = 100 HDL, POC 49 mg/dL Triglycerides, POC 229 mg/dL LDL Cholesterol POC 96 mg/dL Chol/HDL Ratio, POC 3.9 Non-HDL Cholesterol, POC 142 mg/dL Cholesterol Total, POC 191 mg/dL Capillary blood 04/09/2021 3 :06 PM VICE PRESIDENT OF NEWS Santa Wheeler MD POINT OF CARE TEST ORDERABL ES Final Result * Serum Hepatitis C ab (10/24/2013 1:57 PM CDT) HCV ab Negative NEG HISTORICAL RESULTS Serum 10/24/2013 1:57 PM CDT Narrative HISTORICAL RESULTS - 10/25/2013 6:28 AM CDT Interpretive Data If confirmation is required, call Laboratory Customer Service to request sample to be sent to [facility] for Hepatitis C Virus (HCV) RNA Detection and Quantitation by Real-Time Reverse Banking Assistant-PCR (RT-PCR). Current interpretive data was last revised on 2011 Emely Burr MD LAB BLOOD ORDER TREVIN Final Result HISTORICAL RESULTS from Last 3 Months or Most Recently Relevant to Health Maintenance Insurance IDPA IDPA [facility] MEDICARE ADVANTAGE Care Teams Flask Handler Relationship Specialty Start Date End Date Rhona Rivas PA [address] [place] [id number] PCP - General Family Medicine 12/22/23
== END 2024-09-06 15:43 | disposition home or self-care (01) ==
PROVIDERS: PCP Nurse Practitioner; Visit Provider Nurse Practitioner
DX: Z12.31 Encounter for screening mammogram for malignant neoplasm of breast (principal)
CPT/HCPCS: 77063; 77067

== ENCOUNTER 2024-09-14 13:42 | Outpatient (CLI) | payer MEDICARE, MEDICAID, SELFPAY ==
--- NOTE | ~2024-09-14 | XR_ITS ---
Clinical Indication: Shortness of breath PA and lateral views of the chest: Comparison: None Findings: There is minimal haziness. No pleural effusion. Cardiomediastinal silhouette is within nor mal limits. Bones and soft tissues are unremarkable. Impression: Probable minimal bibasilar pulmonary edema. Reviewed, dictated and finalized at [facility]. Impression: Probable minimal bibasilar pulmonary edema.
--- OUTSIDE RECORDS SUMMARY | 2024-09-14 14:33 | XMS_ITS | Encounter Summary ---
Author Organization [facility] Address [address] [place] [address] Care Team Providers Care Head Of Biology Name Role Phone Unavailable Primary Care Provider Unavailabl e Encounter Details Date Type Department Care Team (Latest Contact Info) Description 03/23/2018 Abstract [facility] , Denise Alvarado MD [...]
--- OUTSIDE RECORDS SUMMARY | 2024-09-14 14:33 | XMS_ITS | Continuity of Care Document ---
Author Organization [facility] Address [address] [place] [address] [address] [place] [address] Phone Care Team Providers Care Line Dancer Name Role Phone Sabine Malave Unavailable Unavailable Advance Directives Directive Yes / No Effective Date File Name No Information Encounters Encounter Description Practice Location Reason(s) For Visit Diagnoses Date Provider Providers Copied on Encounter [facility], [address], [place], [place], [id number], [place] tel:[phone] [facility] No Information 5-200 0 Frieda Regalado. [address] , [address], [place], [address], [place]. tel:[phone] Family History Family Member Type Diagnosis Age At Onset No Information Payers Payer name Insurance type Covered libertarian ID Authoriza tion(s) No Information Social History [...]
--- OUTSIDE RECORDS SUMMARY | 2024-09-14 14:33 | XMS_ITS | CONTINUITY OF CARE DOCUMENT ---
Author Name [email or web address] Address Unknown Organization [facility] Address [address] [place] [address] Phone [phone] Care Team Providers Care Health Safety Manager Name Role Phone Isak Canales MD Unavailable ASIYA MCARTHUR MD Unavailable [phone] ASIYA MCARTHUR MD Unavailable [phone] INSURANCE PROVIDERS Payer name Policy type / Coverage type Ethan red libertarian ID [facility] [facility] Medicaid 0 [id number] [facility] MEDICARE COMPLETE HMO Other [id number]
--- OUTSIDE RECORDS SUMMARY | 2024-09-14 14:33 | XMS_ITS | Clinical Summary ---
Author Organization [email or web address] Address [address] [place] [address] Care Team Providers Care Floater Operator Name Role Phone Jae Gaurav Wolfgang DO Primary Care Provider [phone] Source Comments [email or web address],non-owned Affiliates and Associated Physician Practices is amultiple site organization consisting of ambulatory clinics and hospital sitesin [place], [place], [place] and [place]. This disclosure is being madepursuant to the Care Everywhere program and may not contain all information available regarding this patient. Last updated 18.[email or web address] Allergies No known active allergies Medications * [...] Office Visit [facility] [address] [place] [phone] Neal Leon MD [address] [place] [phone] Health Maintenance Due Date Last Done Comments [...] Insurance UHC MANAGED MEDICARE ADV MEDICAID - [facility] MEDICAID - [place] [facility] MEDICARE ADV Care Teams Floater Operator Relationship Specialty Start Date End Date Gaurav Rowe DO [address] [place] [id number] PCP - General Internal Medicine 06/01/24
--- OUTSIDE RECORDS SUMMARY | 2024-09-14 14:34 | XMS_ITS | Referral Summary ---
Author Organization [facility] Address [address] [place] [address] Care Team Providers Care Tilt Tray Driver Name Role Phone Rhona Rivas Primary Care Provider [phone] Allergies Active Allergy Reactions Criticality Noted Date [...] enteric coated tabletIndications:C oronary artery disease involving hopi coronary artery of hopi heart without angina pectoris Take 1 tablet [...] mg immediate release tabletIndications:C oronary atherosclerosis of hopi coronary artery,Coronary artery disease involving hopi coronary artery of hopi heart without angina pectoris,Essential hypertension,Palpit ations TAKE 1 TABLET(25 MG) BY MOUTH TWICE DAILY 180 tablet 1 03/24/20 22 Active atorvastatin (LIPITOR) 40 mg tabletIndications:C oronary atherosclerosis of hopi coronary artery,Coronary artery disease involving hopi coronary artery of hopi heart without angina pectoris,Mixed hyperlipidemia Take 1 [...] CT ordered. Coronary artery disease invo lving hopi coronary artery of hopi heart without angina pectoris 04/01/2017 Overview (04/01/2017): [...] recommendations Assessment & Plan (04/01/2017 6:42 PM BATHING SUIT MAKER): Inferior STEMI 2008, status post 3.5 mm JONNIE to the occluded mid large RCA by Dr. Golden at [facility]. Had a 40% circumflex stenosis but not much other disease. Coronary artery disease is stable without angina Essential hypertension 04/01/2017 Assessment & Plan (12/23/2023 4:18 PM CDT): Chronic. Controlled. Continue metoprolol 25 mg daily. Assessment & Plan (04/01/2017 6:35 PM BATHING SUIT MAKER): Hypertension is at goal Medical therapy Mixed [...] 10/12/2019 Assessment & Plan (04/01/2017 6:34 PM BATHING SUIT MAKER): Now using E cigarettes Positive antinuclear antibody [...] on file Legal Sex Female 10:57 AM BATHING SUIT MAKER Gender Identity Not on file Sexual Orientation [...] POCT LIPID PANEL Routine 04/09/2021 3:06 PM BATHING SUIT MAKER Lipid screening SERUM HEPATITIS C AB Routine [...] * POCT lipid panel (04/09/2021 3:06 PM BATHING SUIT MAKER) Cholesterol, POC 191 mg/dL Comment:GLU = 100 HDL, POC 49 mg/dL Triglycerides, POC 229 mg/dL LDL Cholesterol POC 96 mg/dL Chol/HDL Ratio, POC 3.9 Non-HDL Cholesterol, POC 142 mg/dL Cholesterol Total, POC 191 mg/dL Capillary blood 04/09/2021 3 :06 PM BATHING SUIT MAKER Santa Wheeler MD POINT OF CARE TEST ORDERABL ES Final Result * Serum Hepatitis C ab (10/24/2013 1:57 PM CDT) HCV ab Negative NEG HISTORICAL RESULTS Serum 10/24/2013 1:57 PM CDT Narrative HISTORICAL RESULTS - 10/25/2013 6:28 AM CDT Interpretive Data If confirmation is required, call Laboratory Customer Service to request sample to be sent to [facility] for Hepatitis C Virus (HCV) RNA Detection and Quantitation by Real-Time Reverse District Operations Manager-PCR (RT-PCR). Current interpretive data was last revised on 2011 Emely Burr MD LAB BLOOD ORDER TREVIN Final Result HISTORICAL RESULTS from Last 3 Months or Most Recently Relevant to Health Maintenance Insurance IDPA IDPA [facility] MEDICARE ADVANTAGE Care Teams Tilt Tray Driver Relationship Specialty Start Date End Date Rhona Rivas PA [address] [place] [id number] PCP - General Family Medicine 12/22/23
--- OUTSIDE RECORDS SUMMARY | 2024-09-14 14:34 | XMS_ITS | Clinical Summary ---
Author Organization [facility] Address [address] [place] [address] Care Team Providers Care Mate Fourth Name Role Phone Rhona Rivas Primary Care Provider [phone] Allergies Active Allergy Reactions Criticality Noted Date [...] enteric coated tabletIndications:C oronary artery disease involving kashia coronary artery of kashia heart without angina pectoris Take 1 tablet [...] mg immediate release tabletIndications:C oronary atherosclerosis of kashia coronary artery,Coronary artery disease involving kashia coronary artery of kashia heart without angina pectoris,Essential hypertension,Palpit ations TAKE 1 TABLET(25 MG) BY MOUTH TWICE DAILY 180 tablet 1 03/24/20 22 Active atorvastatin (LIPITOR) 40 mg tabletIndications:C oronary atherosclerosis of kashia coronary artery,Coronary artery disease involving kashia coronary artery of kashia heart without angina pectoris,Mixed hyperlipidemia Take 1 [...] CT ordered. Coronary artery disease invo lving kashia coronary artery of kashia heart without angina pectoris 04/01/2017 Overview (04/01/2017): [...] recommendations Assessment & Plan (04/01/2017 6:42 PM STAFF ELECTRONIC WARFARE OFFICER): Inferior STEMI 2008, status post 3.5 mm JONNIE to the occluded mid large RCA by Dr. Golden at [facility]. Had a 40% circumflex stenosis but not much other disease. Coronary artery disease is stable without angina Essential hypertension 04/01/2017 Assessment & Plan (12/23/2023 4:18 PM CDT): Chronic. Controlled. Continue metoprolol 25 mg daily. Assessment & Plan (04/01/2017 6:35 PM STAFF ELECTRONIC WARFARE OFFICER): Hypertension is at goal Medical therapy Mixed [...] 10/12/2019 Assessment & Plan (04/01/2017 6:34 PM STAFF ELECTRONIC WARFARE OFFICER): Now using E cigarettes Positive antinuclear antibody [...] on file Legal Sex Female 10:57 AM STAFF ELECTRONIC WARFARE OFFICER Gender Identity Not on file Sexual Orientation [...] POCT LIPID PANEL Routine 04/09/2021 3:06 PM STAFF ELECTRONIC WARFARE OFFICER Lipid screening SERUM HEPATITIS C AB Routine [...] Units/L EXTERNAL LAB SCRIBED eGFR in NonAfrican Sierra Leonean >60 0 - 0 EXTERNAL LAB Blood Historical Provider LAB BLOOD ORDERABLES Yasmin l Result EXTERNAL LAB * POCT lipid panel (04/09/2021 3:06 PM STAFF ELECTRONIC WARFARE OFFICER) Cholesterol, POC 191 mg/dL Comment:GLU = 100 HDL, POC 49 mg/dL Triglycerides, POC 229 mg/dL LDL Cholesterol POC 96 mg/dL Chol/HDL Ratio, POC 3.9 Non-HDL Cholesterol, POC 142 mg/dL Cholesterol Total, POC 191 mg/dL Capillary blood 04/09/2021 3 :06 PM STAFF ELECTRONIC WARFARE OFFICER Santa Wheeler MD POINT OF CARE TEST ORDERABL ES Final Result * Serum Hepatitis C ab (10/24/2013 1:57 PM CDT) HCV ab Negative NEG HISTORICAL RESULTS Serum 10/24/2013 1:57 PM CDT Narrative HISTORICAL RESULTS - 10/25/2013 6:28 AM CDT Interpretive Data If confirmation is required, call Laboratory Customer Service to request sample to be sent to [facility] for Hepatitis C Virus (HCV) RNA Detection and Quantitation by Real-Time Reverse Marine Design Engineer-PCR (RT-PCR). Current interpretive data was last revised on 2011 us Emely Burr MD LAB BLOOD ORDER TREVIN Final Result Performing Organization Address City/[facility]/ZIP Co de Phone Number HISTORICAL RESULTS from Last 3 Months or Most Recently Relevant to Health Maintenance Insurance IDPA IDPA [facility] MEDICARE ADVANTAGE Care Teams Mate Fourth Relationship Specialty Start Date End Date Rhona Rivas PA [facility] [address] [place] [address] PCP - General Family Medicine 12/22/23
--- OUTSIDE RECORDS SUMMARY | 2024-09-14 14:34 | XMS_ITS | Clinical Summary ---
Author Organization [facility] Address [address] [place] [address] Care Team Providers Care Assistant Food Service Director Name Role Phone Unavailable Primary Care Provider [...] Comments Blood Pressure 130/80 04/11/2014 3:44 PM BRICKLAYER APPRENTICE Pulse 86 04/11/2014 3:44 PM BRICKLAYER APPRENTICE Temperature - - Respiratory Rate - - Oxygen Saturation - - Inhaled Oxygen Concentration - - Weight 73.9 kg (163 lb) 04/11/2014 3:44 PM BRICKLAYER APPRENTICE Height 162.6 cm (5' 4 ) 04/11/2014 3:44 PM BRICKLAYER APPRENTICE Body Mass Index 27.98 04/11/2014 3:44 PM BRICKLAYER APPRENTICE Plan of Treatment Health Maintenance Due Date [...]
[2024-09-14 20:07] LABS: Immature Reticulocyte Fraction 26.9 % (3.0-15.9); Reticulocyte Hemoglobin Conten 26.6 pg (28.2-36.6); Reticulocyte Percent 1.88 % (0.7-4.3); Reticulocytes Absolute 0.08 10^6/uL (0.02-0.10)
[2024-09-14 21:07] LABS: Iron 60 ug/dL (37-170)
[2024-09-14 21:18] LABS: Percent Iron Saturation 12 % (20-50)
[2024-09-14 21:29] LABS: Alanine Aminotransferase 34 U/L (6-35); Albumin Level 4.2 g/dL (3.5-5.1); Alkaline Phosphatase 132 U/L (38-126); Anion Gap 10 mmol/L (4-12); Aspartate Amino Transferase 42 U/L (14-36); Bilirubin,Total 0.4 mg/dL (0.2-1.3); Blood Urea Nitrogen 12 mg/dL (7-17); Calcium 9.5 mg/dL (8.4-10.2); Carbon Dioxide 32 mmol/L (22-30); Chloride 100 mmol/L (98-107); Cholesterol 162 mg/dL (0-200); Estimated Glomerular Filt Rate > 60; Glucose 131 mg/dL (65-110); HDL Direct 37 mg/dL; Potassium 4.5 mmol/L (3.4-5.0); Sodium 142 mmol/L (137-145); Triglycerides 217 mg/dL (<150)
[2024-09-14 21:40] LABS: LDL Cholesterol Direct 62 mg/dL
[2024-09-14 21:40] LABS: Vitamin D 25 Hydroxy 35.3 ng/mL
[2024-09-14 22:08] LABS: Hemoglobin A1C 7.4 % (<5.7)
== END 2024-09-14 13:43 | disposition home or self-care (01) ==
LOC: ANHGOSHLAB 14:21 → ANHASCIMG 14:25
PROVIDERS: PCP Nurse Practitioner; Visit Provider Nurse Practitioner
DX: F31.9 Bipolar disorder, unspecified (principal); F41.9 Anxiety disorder, unspecified; D64.9 Anemia, unspecified; E55.9 Vitamin D deficiency, unspecified; E11.9 Type 2 diabetes mellitus without complications; R06.02 Shortness of breath
CPT/HCPCS: 36415; 71046; 80053; 80061; 80164; 80165; 82306; 82728; 83036; 83540; 83550; 84443; 85046

== ENCOUNTER 2025-01-21 14:08 | Emergency (ER) | payer MEDICARE, MEDICAID, SELFPAY ==
[2025-01-21 14:17] VITALS: BP 125/66; PULSE 89; RESP 16; TEMP 36.1; O2SAT 94
[2025-01-21 14:34] LABS: EDUAAPPEAR Clear; EDUABILI 1+ (Negative); EDUABLOOD 2+ (Negative); EDUACOLOR1 Yellow; EDUAGLUCOSE Negative (Negative); EDUAKETONE 1+ (Negative); EDUALEUKO 1+ (Negative); EDUANITRATE Negative (Negative); EDUAPH 6.5; EDUAPROTEIN 2+ (Negative); EDUASPGRAVITY 1.020; EDUAUROBILI 0.2
--- NOTE | 2025-01-21 14:34 | ED.FEMALEGU ---
HPI - Female Genitourinary General Chief complaint: Urogenital-Female Stated complaint: urinary irritation patient presents to the [facility] with complaints of burning with urination, bladder pressure, and back pain that began yesterday. Attempted to care physician's office but was unable to get in. Noted no history of significant urinary tract infections or hard to treat urinary tract infections. Denies fever, chills, body aches, vaginal symptoms, or blood in urine. Related Data Home Medications ?Medication ?Instructions ?Recorded ?Confirmed ?Last Taken ?Type divalproex 500 mg tablet,extended 1,000 mg PO HS 06/13/19 09/14/24 04/17/24 History release 24 hr quetiapine 400 mg tablet 400 mg PO QHS 01/09/22 09/14/24 04/17/24 History aspirin 81 mg tablet,delayed 81 mg PO DAILY 07/08/22 09/14/24 04/17/24 History release (Adult Low Dose Aspirin) acetaminophen 325 mg tablet 650 mg PO Q6H PRN pain or fever 04/19/24 09/14/24 Unknown History cholecalciferol (vitamin D3) 50 50 mcg PO DAILY 04/19/24 09/14/24 04/17/24 History mcg (2,000 unit) capsule duloxetine 30 mg capsule,delayed 30 mg PO DAILY 09/14/24 09/14/24 Unknown History release trazodone 50 mg tablet 50 mg PO QHS 09/14/24 09/14/24 Unknown History zolpidem 10 mg tablet 5 mg PO HS 09/14/24 09/14/24 Unknown History Allergies Allergy/AdvReac Type Severity Reaction Status Date / Time tramadol Allergy Unknown Itching Verified 01/21/25 14:12 Review of Systems Constitutional: Constitutional: Reports as per HPI, Denies chills and Denies fatigue Eyes: Eyes: Reports no additional eye complaints Cardiovascular: Cardiovascular: Reports no additional cardiovascular complaints Respiratory: Respiratory: Reports no additional respiratory complaints Gastrointestinal: Gastrointestinal: Reports as per HPI, Reports abdominal pain ( Bladder pressur), Denies diarrhea, Denies nausea and Denies vomiting Genitourinary: Genitourinary: Reports as per HPI, Denies abnormal vaginal bleeding, Denies hematuria, Reports nocturia, Denies genital lesions, Reports dysuria, Denies pelvic pain, Reports flank pain, Denies urinary incontinence and Denies vaginal discharge Integumentary/Breasts: Skin/Breast: Reports as per HPI Neurologic: Reports system reviewed and no additional complaints, except as documented Psychiatric: Psychiatric: Reports no additional psychiatric complaints Endocrine: Endocrine: Reports no additional endocrine complaints Hematologic/Lymphatic: Hematologic/Lymphatic: Reports no additional hematologic/lymphatic complaints Allergic/Immunologic: Allergic/Immunologic: Reports no additional allergic/immunologic complaints PMFSH Past Medical History Medical History (Updated 01/21/25 @ 14:36 by CECILY Henderson-C) Transaminitis Family history of abdominal aortic aneurysm (AAA) Obesity Coronary artery disease Osteoarthritis Mumps Measles Anxiety Depression Bipolar 1 disorder Liver disease Type 2 diabetes mellitus Arthritis Melena GERD (gastroesophageal reflux disease) Pneumonia Asthma Hypertension Hypercholesterolemia Myocardial infarction 2008 with stent Surgical History Surgical History H/O: section x3 History of knee surgery History of orthopedic surgery Back x2, cervical x 1 H/O: hysterectomy Family History Family History Mother Aortic aneurysm Father Patient's father is in good health Social History Social History (Updated 09/14/24 @ 13:15 by Lacy Garcia CMA) Smoking status: Current every day smoker Tobacco type: e-cigarettes/vaping Smoking end date: 05/18/12 Additional smoking assessment comments: vape may contain nicotine per patient Alcohol intake: never Substance use: never Substance use type: does not use Do You Feel Safe in your Home?: Yes Lack of Transportation: No Lack of Food: Never True Current Housing: I Have Housing Concerned About Future Housing: No Difficulty Paying Gas/Electric Bills: No Difficulty Paying for Meds: No Currently Unemployed: No Education: Decline to Answer Difficulty w/ Childcare or Family Care: Decline to Answer Living arrangements: alone Gender identity (if verbalized by the patient): Female Spiritual care concerns: No Exam Const: General: healthy appearing and no acute distress Nutritional Appearance: well nourished Orientation/consciousness: patient oriented x3 Limitations: no limitations Resp: Effort & Inspection: normal respiratory effort Auscultation: clear to auscultation bilaterally Cardio: Rate: regular rate Rhythm: regular rhythm GI: Inspection: non-distended GI Palp: Yes Soft to palpation, Yes Tenderness to palpation present (GI) ( suprapubic), No Guarding due to palpation present (GI), No Rigid due to palpation, No Hernia present, No Palpable mass present and No Rebound tenderness present Auscultation: normal bowel sounds : General: Yes bladder normal to palpation and Yes CVA tenderness on the left Back/Spine/Pelvis: Back: CVA tenderness Skin: General skin exam: normal color Rashes: no rashes Wounds: no wounds Neuro: General: patient oriented x3 Speech: normal speech Gait exam (Neuro): Normal gait present Psych: Appearance: grossly normal Mental Status: mental status grossly normal Affect: normal affect Attitude: cooperative Course Course Level of Care: Express Care Visit Vital Signs Vital signs: Vital Signs Temperature 97.0 F L 01/21/25 14:17 Pulse Rate 89 01/21/25 14:17 Respiratory Rate 16 01/21/25 14:17 Blood Pressure 125/66 01/21/25 14:17 Pulse Oximetry 94 01/21/25 14:17 Oxygen Delivery Room Air 01/21/25 14:17 Temperature 97.0 F L 01/21/25 14:17 Pulse Rate 89 01/21/25 14:17 Respiratory Rate 16 01/21/25 14:17 Blood Pressure 125/66 01/21/25 14:17 Pulse Oximetry 94 01/21/25 14:17 Oxygen Delivery Room Air 01/21/25 14:17 MDM - Female Genitourinary MDM Narrative Medical decision making narrative: The patient was evaluated by myself in the [facility]. History is obtained from patient who is an independent historian and physical exam was performed. Available medical records were reviewed at this time. Exam findings show no acute concerns or changes; patient is non-toxic appearing and is in no distress. Patient is appropriate for outpatient treatment and follow-up. I have evaluated and discussed social determinants of health with the patient that could potentially impact subsequent diagnosis and treatment plans. Differential diagnosis and treatment plan were discussed with the patient. Patient agrees with discussion and after shared medical decision making agrees with plan of care. All questions were answered to the patient's satisfaction. Differential Diagnosis Differential diagnosis: Likely urinary tract infection, cervicitis, vaginitis and cystitis Medical Records Attestation: I reviewed the patient's medical records. Lab Data Attestation: I reviewed the patient's lab results. Labs: Lab Results 01/21/25 Range/Units 14:21 POC Urine Color Yellow POC Urine Clarity Clear POC Urine pH 6.5 POC Ur Specif Stem 1.020 POC Urine Protein 2+ (Negative) POC Ur Glucose (UA) Negative (Negative) POC Urine Ketones 1+ (Negative) POC Urine Blood 2+ (Negative) POC Urine Nitrite Negative (Negative) POC Urine Bilirubin 1+ (Negative) POC Urine Urobilinogen 0.2 POC U Leukocyte Esteras 1+ (Negative) Discharge Plan Discharge Clinical Impression: Cystitis Patient Disposition: Home Condition: Stable Instructions: Antibiotic Form, Urinary Tract Infection in Women (ED) Additional Instructions: We will send a urine culture off to the lab; if the culture identifies an organism that the prescribed antibiotic will not treat, you will receive a phone call from an urgent care staff member and an appropriate antibiotic will be prescribed. -Your symptoms should begin to improve within a day of starting antibiotics. But you should finish all the antibiotic pills you get. Otherwise your infection might come back. -Also recommend: drink more fluid. It might help flush out germs, and it does no harm -Tylenol/ibuprofen as needed for pain -Follow-up with your primary care provider for urine recheck OR if your symptoms persist, change or worsen significantly before you can contact your personal physician then please, without delay, go to the emergency department for further evaluation. Patient Language: Icelandic Prescriptions: New sulfamethoxazole-trimethoprim [Bactrim DS] 800-160 mg tablet 1 tablet PO Q12H Qty: 14 0RF phenazopyridine [Pyridium] 200 mg tablet 200 mg PO TID Qty: 6 0RF No Action divalproex 500 mg tablet extended release 24 hr 1,000 mg PO HS zolpidem 10 mg tablet 5 mg PO HS quetiapine 400 mg tablet 400 mg PO QHS aspirin [Adult Low Dose Aspirin] 81 mg tablet,delayed release (DR/EC) 81 mg PO DAILY triamcinolone acetonide 0.1 % cream 1 applic topical BID Qty: 30 0RF Rx Instructions: around lips as needed trazodone 50 mg tablet 50 mg PO QHS duloxetine 30 mg capsule,delayed release(DR/EC) 30 mg PO DAILY Rx Instructions: x14 days then increase to 60 mg daily ibuprofen 800 mg tablet 800 mg PO BID PRN (Reason: pain) Qty: 30 2RF acetaminophen 325 mg Tablet 650 mg PO Q6H PRN (Reason: pain or fever) cholecalciferol (vitamin D3) 50 mcg (2,000 unit) Capsule 50 mcg PO DAILY omeprazole 40 mg capsule,delayed release(DR/EC) See Rx Instructions .ROUTE .COMPLEX Qty: 90 1RF Dose Instruction: TAKE 1 CAPSULE BY MOUTH DAILY Rx Instructions: TAKE 1 CAPSULE BY MOUTH DAILY ferrous sulfate 325 mg (65 mg iron) tablet 325 mg PO DAILY Qty: 90 1RF metformin 1,000 mg tablet See Rx Instructions .ROUTE .COMPLEX Qty: 180 1RF Dose Instruction: TAKE 1 TABLET BY MOUTH TWICE DAILY Rx Instructions: TAKE 1 TABLET BY MOUTH TWICE DAILY oxybutynin chloride 5 mg tablet 5 mg PO BID Qty: 90 1RF atorvastatin 40 mg tablet 40 mg PO DAILY Qty: 90 1RF metoprolol tartrate 25 mg tablet 25 mg PO DAILY Qty: 90 1RF Follow-up/Referrals: Gaurav Rowe DO [Primary Care Provider, Internal Medicine] Time of Disposition: 14:37
== END 2025-01-21 14:41 | disposition home or self-care (01) ==
PROVIDERS: Emergency Provider Nurse Practitioner Family; PCP Internal Medicine
DX: N30.90 Cystitis, unspecified without hematuria (principal); F17.290 Nicotine dependence, other tobacco product, uncomplicated; I25.10 Atherosclerotic heart disease of native coronary artery without angina pectoris; E11.9 Type 2 diabetes mellitus without complications; Z79.84 Long term (current) use of oral hypoglycemic drugs; I10 Essential (primary) hypertension; E78.00 Pure hypercholesterolemia, unspecified; I25.2 Old myocardial infarction; Z95.5 Presence of coronary angioplasty implant and graft; K21.9 Gastro-esophageal reflux disease without esophagitis; M19.90 Unspecified osteoarthritis, unspecified site; E66.9 Obesity, unspecified; Z68.32 Body mass index [BMI] 32.0-32.9, adult; F31.9 Bipolar disorder, unspecified; Z79.82 Long term (current) use of aspirin
CPT/HCPCS: 81003; 87077; 87086; 87186; 99213; G0463

== ENCOUNTER 2025-02-23 16:10 | Outpatient (CLI) | payer MEDICARE, MEDICAID, SELFPAY ==
[2025-02-23 16:51] LABS: Anion Gap 11 mmol/L (4-12); Blood Urea Nitrogen 10 mg/dL (7-17); Calcium 9.0 mg/dL (8.4-10.2); Carbon Dioxide 27 mmol/L (22-30); Chloride 99 mmol/L (98-107); Estimated Glomerular Filt Rate > 60; Glucose 199 mg/dL (65-110); Potassium 4.2 mmol/L (3.4-5.0); Sodium 137 mmol/L (137-145)
== END 2025-02-23 16:11 | disposition home or self-care (01) ==
PROVIDERS: PCP Internal Medicine; Visit Provider Anesthesiology
DX: E11.9 Type 2 diabetes mellitus without complications (principal); Z79.899 Other long term (current) drug therapy
CPT/HCPCS: 36415; 80048; 80164

== ENCOUNTER 2025-02-27 03:51 | Day surgery (SDC) | payer MEDICARE, MEDICAID, SELFPAY ==
--- OUTSIDE RECORDS SUMMARY | 1999-10-10 03:30 | XMS_ITS | Continuity of Care Document ---
Author Organization [facility] Address [address] [place] [address] [address] [place] [address] Phone Care Team Providers Care Job Foreman Name Role Phone Sabine Malave Unavailable Unavailable Advance Directives Directive Yes / No Effective Date File Name No Information Encounters Encounter Description Practice Location Reason(s) For Visit Diagnoses Date Provider Providers Copied on Encounter [facility], [id number], [place], [place], [id number], [place] tel:[phone] [facility] (formerly [facility]) No Information 5-200 0 Frieda Regalado. [address] [facility] , [address], [place], [address], [place]. tel:[phone] Family History Family Member Type Diagnosis Age At Onset No Information Payers Payer name Insurance type Covered green party ID Authoriza tion(s) No Information Social History Type Description Quantity Date Captured Comments Sex Female Smoking Status No Information Chief Complaint And Reason For Visit No Information Reason For Referral Reason For Referral No Information History Of Present Illness Encounter Date Complaint History Of Prese nt Illness No Information Functional Status Date Functional Assessmen t No Information Instructions Date Instruction Additional Infor mation No Information Assessments Type Assessment Date No Information Patient Care Teams Name Effective Dates (start - stop) Status Members No Information
[2025-02-22 12:17] VITALS: BMI 31.8
--- NOTE | 2025-02-22 12:24 | PC.NURSE ---
[facility] has started construction of its new state of the art ER which will open Spring 2026. With this, we anticipate parking may be a challenge for some our surgical patients and families. Parking spaces are limited but are available for all Surgical, obstetrics, and ER patients sharing this lot. If you arrive and find you are having a hard time finding a parking space, please note that we understand the challenges, please drive around the hospital and park near Hospital Entrance 1. When you enter this entrance, you can ask a volunteer to direct or take you back to the surgical waiting area to check in. We appreciate everyone?s understanding of these expected challenges while we build for your future. Report to the Outpatient Waiting Room, entrance under the green pavilion located off [address], at time _1100_ on date _[id number]_. Planned Procedure Time: _1pm_.? Time changes happen often and if your time is changed the preop area will call you the afternoon before. - You and your visitor will be asked to self-screen and do not enter if you have any COVID symptoms. Please call surgeon if you need to reschedule. - A mask is optional within the hospital at this time. Patients may have clear liquids (water, carbonated beverages, clear teas, apple juice) until 3 hours prior to surgery with a maximum of 20 ounces. - No food from midnight until time of surgery and no smoking, or chewing tobacco (or any form of nicotine). No chewing gum, candy or mints. Take only the following medications with a SIP of water on the morning of surgery: __Dulixetine, Diazepam, Metoprolol___ DO NOT STOP ANY OF YOUR OTHER PRESCRIPTION MEDICATIONS PRIOR TO SURGERY EXCEPT THE FOLLOWING Hold all vitamins and supplements for 3 days per anesthesiologist. Medications to discontinue per physician Please ask Dr Leslie's office about Ibuprofen and Aspirin. Date to take last dose Please no make-up, nail estonian, hairspray, perfume, deodorant, or body powder the day of surgery.? No jewelry (including any body piercings) or valuables the day of surgery, leave them at home.? Please take a shower or bath the night before, or the morning of, surgery with an antibacterial soap.? Wear comfortable, loose fitting clothing.? - Jewelry must be removed prior to entering the operating room.? Rings and piercings that are not removed may be cut off. - The hospital will not accept responsibility for valuables.? - Please leave all valuables, including medications, at home the day of surgery. If you are going home after surgery, a licensed day haul or farm charter bus driver must drive you home.? - NO public transportation without another adult if you receive anesthesia. - We recommend that an adult stay with you for 24 hours following discharge. - We also recommend that you do not drive, make important decision, drink alcoholic beverages, or take any drugs that were not prescribed by your health care provider for at least 24 hours after your discharge time. Follow any additional instructions given to you from your surgeon. Telephone instructions given to __Deana___and asked if any additional questions and then verbalized understanding. Patient advised to call surgeon office or pre surgery nurse liaison [phone] if any additional questions.
[2025-02-27] VITALS (7 sets, daily range): BP systolic 131–159; BP diastolic 68–81; PULSE 80–99; RESP 14–18; TEMP 36.1–36.4; O2SAT 90–100
--- OUTSIDE RECORDS SUMMARY | 2025-02-27 03:53 | XMS_ITS | Encounter Summary ---
Author Organization [facility] Healthcare Address [address] [place] [address] Care Team Providers Care Gamewell Operator Name Role Phone Gaurav Rowe DO Primary Care Provider Rhona Rivas Primary Care Provider [phone] Encounter Details Date Type Department Care Team (Late st Contact Info) Description 12/03/2017 Orders Only [facility] [place] [address] [place] [id number] Scanning, Provider Social History Tobacco Use Types Packs/Day Years Used Date Smoking Tobacco: Some Days Smokeless Tobacco: Never Comments:e cigarettes Alcohol Use Standard Drinks/Week Comments Yes 0 (1 standard drink = 0.6 oz pur e alcohol) Comments Unknown Sex and Gender Information Value Date Recorded Sex Assigned at Not on file 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 Gender Identity Not on file Sexual Orientation Not on file documented as of this encounter Plan of Treatment Not on file documented as of this encounter Procedures Procedure Name Priority Date/Time Associated Diagnosis Comments SCAN - RADIOLOGY/IMAGING 12/03/2017 documented in this encounter Results * SCAN - RADIOLOGY/IMAGING (12/03/2017) Anatomical Region Laterality Modality Other us Provider Scanning Final Result documented in this encounter Visit Diagnoses Not on filedocumented in this encounter Care Teams Gamewell Operator Relationship Specialty Start Date End Date Gaurav Rowe DO PCP - General 08/15/16 12/21/23 Rhona Rivas PA [address] [place] [address] PCP - General Family Medicine 12/22/23 documented as of this encounter
--- OUTSIDE RECORDS SUMMARY | 2025-02-27 03:54 | XMS_ITS | Clinical Summary ---
Author Organization [facility] Address [address] [place] [address] Care Team Providers Care Message And Delivery Service Pricer Name Role Phone Gaurav Rowe DO Primary Care Provider [phone] Source Comments [facility],non-owned Affiliates and Associated Physician Practices is amultiple site organization consisting of ambulatory clinics and hospital sitesin [place], [place], [place] and [place]. This disclosure is being madepursuant to the Care Everywhere program and may not contain all information available regarding this patient. Last updated 18.[facility] Allergies Active Allergy Reactions Criticality Noted Date Comments Tramadol Unknown 12/07/2024 Medications * Be aware that medications may not be up to date on this document. Alwaysverify current medications with the patient. metFORMIN (Glucophage) 500 MG tablet Take 2 (two) tablets by mouth 2 times daily 1 Active oxyBUTYnin (Ditropan) 5 MG tablet Take [...] (two) tablets by mouth at bedtime Active diazePAM (Valium) 5 MG tablet Take 1 (one) tablet by mouth 2 times daily as needed for Anxiety Active traZODone (Desyrel) 50 MG tablet Take 1 (one) tablet by mouth at bedtime Active metoclopramide (Reglan) 10 MG tablet Take 1 (one) tablet by mouth 2 times daily 90 tablet 1 Active Encounters Date Type Department Care Team Description 12/07/2024 11:00 AM CDT Office Visit [facility] - GI [address] [place] [id number] Neal Leon MD Ineffective esophageal motility (Primary Dx); Gastroesophageal reflux disease without esophagitis 12/07/2024 Travel from Last 3 Months Social History Tobacco Use Types Packs/Day Years Used Date Smoking Tobacco: Former Cigarettes Q uit: 2010 Smokeless Tobacco: Never Tobacco Cessation:Counseling Given: Not [...] Sign Reading Time Taken Comments Blood Pressure 131/63 12/07/2024 12:06 PM CDT Pulse 72 12/07/2024 12:06 PM CDT Temperature 36.7 C (98 F) 12/07/2024 12:06 PM CDT Respiratory Rate 14 10/18/2024 11:15 AM CDT Oxygen Saturation 96% 12/07/2024 12:06 PM CDT Inhaled Oxygen Concentration - - Weight 84.4 kg (186 lb) 12/07/2024 12:06 PM CDT Height 160 cm (5' 3) 12/07/2024 12:06 PM CDT Body Mass Index 32.95 12/07/2024 12:06 PM CDT Plan of Treatment Upcoming Encounters Date Type Department Care Team (Late st Contact Info) Description 06/07/2025 1:30 PM PORTABLE CANTEEN OPERATOR Office Visit [facility] - GI [address] [facility] [place] [address] Neal Leon MD [address] [place] [id number] Health Maintenance Due Date Last Done Comments COLOGUARD (AGES 45-75) - COL ON CA SCREENING 1960 COLON MONITORING 1960 COLONOSCOPY - COLON CA SCREENING 1960 CT COLONOGRAPHY - COLON CA SCREENING 1960 Colorectal Cancer Screening 1960 FIT - COLON CA SCREENING 1960 FLEX SIG - COLON CA SCREENING 1960 MAMMOGRAM 1960 HIV SCREENING 12/19/1975 HEPATITIS C SCREENING 12/14/1978 DTAP/TDAP/TD VACCINES (1 - Tdap) 12/19/1979 PNEUMOCOCCAL VACCINE 50+ (1 of 1 - PCV) 2010 ZOSTER VACCINE (1 of 2) 2010 DEPRESSION SCREENING 05/18/2024 MEDICARE AWV CALENDAR YEAR 2024 COVID-19 VACCINE (1 - 2023-2 5 season) 2025 INFLUENZA VACCINE (#1) 2025 5, 05/05/2014 SCREENING FOR DIABETES 10/19/2027 10/18/2024 Respiratory Syncytial Virus (RSV) Vaccine Pt: or [...] on patient's age to complete this topic Goals Goal Patient Goal Type Associated Problems Recent Progress Patient-Stated? Author Medication Management General On track( 025 12:38 PM CDT) No Lyly Hess, RN Note: Expected end date: ongoing Interventions: Take all medications as prescribed Let your doctor know right away about any changes in your medications Make sure to request a refill of your medication at least one week prior to your last dose Safety General On track( 025 12:38 PM CDT) Lyly Us RN Note: Expected end date: ongoing Interventions: Your nurse will assess your risk for falls/injury each visit Use appropriate and safe transfer methods Make sure appropriate safety devices are available and within reach Be aware of medications that could predispose you to falling Wear non-skid/rubber sole footwear Wear glasses/hearing aid Keep personal items within easy reach Use some light at night in your room Maintain an unobstructed path to the bathroom Procedures Procedure Name Priority Date/Time Associated Diagnosis Comments GLUCOSE - POINT OF CARE Routine 10/18/2024 9:54 AM CDT from Last 3 Months or Most Recently Relevant to Health Maintenance Results * (ABNORMAL) GLUCOSE - POINT OF CARE (10/18/2024 9:54 AM CDT) Glucose WB/POC 119(H) 70 - 99 mg/dL 10/18/2024 9:58 AM CDT [facility] Specimen Type Venous 10/18/2024 9:58 AM CDT [facility] Blood BLOOD SPECIMEN / Unknown 10/18/2024 9:54 AM CDT 10/18/2024 9:58 AM CDT Neal Leon MD LAB - POINT OF CARE ORDERABLES Final Result [facility] [address] [place] [address], [place] [phone] from Last 3 Months or Most Recently Relevant to Health Maintenance Insurance [facility] MANAGED MEDICARE ADV MEDICAID - OUT OF STATE MEDICAID - [place] UHC MANAGED MEDICARE ADV Care Teams Message And Delivery Service Pricer Relationship Specialty Start Date End Date Gaurav Rowe DO [address] [place] [address] PCP - General Internal Medicine 06/01/24
--- OUTSIDE RECORDS SUMMARY | 2025-02-27 03:54 | XMS_ITS | Clinical Summary ---
Author Organization [facility] Address [address] [place] [address] Care Team Providers Care Mine Expert Name Role Phone Unavailable Primary Care Provider [...] Comments Blood Pressure 130/80 04/11/2014 3:44 PM MINE SAFETY ENGINEER Pulse 86 04/11/2014 3:44 PM MINE SAFETY ENGINEER Temperature - - Respiratory Rate - - Oxygen Saturation - - Inhaled Oxygen Concentration - - Weight 73.9 kg (163 lb) 04/11/2014 3:44 PM MINE SAFETY ENGINEER Height 162.6 cm (5' 4) 04/11/2014 3:44 PM MINE SAFETY ENGINEER Body Mass Index 27.98 04/11/2014 3:44 PM MINE SAFETY ENGINEER Plan of Treatment Health Maintenance Due Date [...] COVID-19 Vaccine ( - 2023-2 5 season) 2025 Influenza Adult (#1) 2025 RSV Immunization or 60+ Years (1 - [...]
--- OUTSIDE RECORDS SUMMARY | 2025-02-27 03:54 | XMS_ITS | Patient Health Record ---
Author Organization [facility] [employer] Address [address] [facility] [address] [place] [address] Care Team Providers Care Assisted Living Executive Director Name Role Phone Gaurav Rowe DO Primary Care Provider Sheila Hinojosa Unavailable [phone] Allergies No Known Allergies Results Component Value Reference Range Notes UDT Reviewed date:09/13/2024 04:26:36 PM Interpretation: Performing Lab: Notes/Report: THC NEG 0 - 50 ng/ml Cocaine NEG 0 - 300 ng/ml Amphetamine NEG 0 - 1000 ng/ml Buprenorphine (BUP) NEG 0 - 10 ng/ml Secobarbital (Bar) NEG 0 - 300 ng/ml Oxazepam (BZO) POS 0 - 300 ng/ml 9-fpyjuqcfrz-8,0-iawknqbd-5,3-diphenylpyrrolidine (JUAN P) NEG 0 - 300 ng/ml Methamphetamine (MET) NEG 0 - 1000 ng/ml Methylenedioxymethamphetamine (MDMA) NEG 0 - 500 ng/ml Morphine (MOP 300/[id number]) NEG 0 - 300 ng/ml Methadone (MTD) NEG 0 - 300 ng/ml Phencyclidine (PCP) NEG 0 - 25 ng/ml Nortriptyline (TCA) NEG 0 - 1000 ng/ml Oxycodone NEG 0 - 300 ng/ml x NEG 0 - 300 ng/ml Reason For Referral No Information Medications Medication SIG (Take, Route, Frequency, Duration) Notes Start Date End Date Status Atorvastatin Calcium 40 MG Tablet Oral; Duration: 90 Days Acti ve QUEtiapine Fumarate 400 MG Tablet TAKE 1 TABLET BY MOUTH AT BEDTIME Oral at bedtime; Duration: 90 days Active Zolpidem Tartrate 5 MG Tablet 1 tablet at bedtime Oral once a day; Duration: 30 days 01/17/2025 04/17/2025 Active DULoxetine HCl 60 MG Capsule Delayed Release Particles 1 capsule at bedtime Orally Once a day; Duration: 90 days Active oxyBUTYnin Chloride 5 MG Tablet TAKE 1 TABLET BY MOUTH TWICE DAILY Oral; Duration: 90 Days Active traZODone HCl 50 MG Tablet 1 tablet at b edtime Orally Once a day; Duration: 90 days 01/13/2025 Active metFORMIN HCl 1000 MG Tablet TAKE 1 TABLET BY MOUTH TWICE DAILY Oral; Duration: 90 Days Active Omeprazole 40 MG Capsule Delayed Release TAKE 1 CAPSULE BY MOUTH DAILY Oral; Duration: 90 Days Active diazePAM 5 MG Tablet 1 tablet Oral twice a day; Duration: 30 days 01/13/2025 Active Aspirin 81 MG Tablet Delayed Release 1 tablet Orally Once a day; Duration: 30 day(s) 09/13/2024 Active Divalproex Sodium ER 500 MG Tablet Extended Release 24 Hour 2 tablet every night Oral bedtime; Duration: 90 days 01/13/2025 04/13/2025 Active Metoprolol Tartrate 25 MG Tablet TAKE 1 TABLET BY MOUTH DAILY Oral; Duration: 90 Days Active Social History Sex Assigned At : Social History Observation Description Sex Assigned At Female Social History Tobacco Use: Social Info Question Answer Notes Tobacco Control (Standard) Additional Findings: Tobacc o user e-cigarette Additional Details Category Social Info Options Details Drug/Alcohol: Do you smoke marijuana? Den ies Do you drink alcohol? No Problems Problem Type SNOMED Code ICD Code Onset Dates Problem Status W/U Status Risk Notes Problem Primary insomnia (8076182) Primary insomnia (F51.01) Active confirmed Problem Screening for cardiovascular system disease (767153251) Encounter for screening for cardiovascular disorders (Z13.6) Active confirmed Problem Dietary management surveillance (477891639) Dietary counseling and surveillance (Z71.3) Active confirmed Problem Obsessive-compuls mary disorder (655770409) Mixed obsessional thoughts and acts (F42.2) Active confirmed Problem Depression Screening (394216767) Encounter for screening for depression (Z13.31) Active confirmed Problem Generalized anxiety disorder (96313443) DENICE (generalized anxiety disorder) (F41.1) Active confirmed Problem Moderate recurrent major depression (90294795) MDD (major depressive disorder), recurrent episode, moderate (F33.1) Active confirmed Problem Mild recurrent major depression (67016807) MDD (major depressive disorder), recurrent episode, mild (F33.0) Active confirmed Problem Elevated blood-pressure reading without diagnosis of hypertension (881478030) Elevated blood pressure reading (R03.0) Active confirmed Problem Long-term current use of drug therapy (936167938) halfway use of drug (Z79.899) Active confirmed Problem Tobacco use (790584019) Nicotine use (Z72.0) Active confirmed Problem Feeling agitated (43670367) Feeling agitated (R45.1) Active confirmed Vital Signs Heart Rate 66 /min 01/13/2025 Respiratory Rate 16 /min 01/13/2025 Height-cm 162.56 cm 01/13/2025 Blood pressure diastolic 70 mm Hg 01/13/2025 Weight-kg 83.01 kg 01/13/2025 Height 64 in 01/13/2025 Blood pressure systolic 114 mm Hg 01/13/2025 Weight 183 lbs 01/13/2025 BMI 31.41 kg/m2 01/13/2025 Encounters Encounter Location Date Provider Diagnosis [facility] [address] 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 and Feeling agitated R45.1 [facility] [address] [place] [address] [place] [address] 01/13/2025 Sheila Gordon Nicotine use Z72.0 ; MDD (major depressive disorder), recurrent episode, mild F33.0 ; Encounter for screening for depression Z13.31 ; DENICE (generalized anxiety disorder) F41.1 ; Mixed obsessional thoughts and acts F42.2 ; Primary insomnia F51.01 ; 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 and Feeling agitated R45.1 [facility] [address] [place] [address] [place] [address] 01/17/2025 Sheila Gordon Primary insomnia F51 .01 Assessments Encounter Date Diagnosis (ICD Code) Assessment Notes Treatment Notes Treatment Clinical Notes Section Notes 09/13/2024 MDD (major depressive disorder), recurrent episode, moderate (ICD-10 - F33.1) Preventing Depression From Coming Back: Care Instructions material was published, Learning About How to Get Help During a Mental Health Crisis material was published, Learning About Depression material was published, Learning About Depression Screening material was published, Seasonal Affective Disorder: Care Instructions material was published presently on Depakote 500 mg - 2 tabs bedtime, Wellbutrin 150 mg daily in am, Seroquel 400 mg bedtime, Diazepam 5 mg twice day, Ambien 10 mg bedtime 1. Depression vs Bipolar II refer to therapy HX ECT Wellbutrin 150 mg daily in am,- will d/c to r/o tinnitus and help with agitation/irritab le Seroquel 400 mg bedtime AIMS= 0 09/13/24 2. Anxiety Diazepam 5 mg twice day- plan to taper off in near future discuss and educated on rx options add Cymbalta 30 mg daily in am for 2 weeks then increase Cymbalta 60 mg daily in am educated patient on why Benzo and control sleep rx should not be taken together and respiratory risk 3. Insomnia patient will see PCP 09/14/24 and discuss sleep study obtain labs PCP decrease Ambien 5 mg bedtime Add Trazodone 50 mg at bedtime sleep hygeine education educated patient on why Benzo and control sleep rx should not be taken together and respiratory risk discuss Ambien at high dose and discuss rx options for sleep Ambien Complex Sleep Behaviors complex sleep behaviors may occur, incl. sleep-walking, sleep-driving, and engaging in other activities while not fully awake; may result in serious injuries, incl. ; D/C immediately if pt experiences a complex sleep behavior 4. OCD 5. Agitated Depakote 500 mg - 2 tabs bedtime labs ordered educated on all rx 6.elevated blood pressure educated on healthy b/p 120/80 monitor b/p at home refer to PCP, heart healthy diet and excise limit salt intake limit soda intake and caffiene increase water 5. vaping Smoking Education Do not smoke. Nicotine and other chemicals in cigarettes and cigars can cause lung damage. Ask your healthcare provider for information if you currently smoke and need help to quit. E-cigarettes or smokeless tobacco still contain nicotine. Talk to your healthcare provider before you use these products. education on decrease to stopping nicotine products and stop smoking hotline given 40Quit - Yes [place] Tobacco Quitline Call a Smoking Quitline The [employer] Smoking Quitline, (8-288-45E-QUIT) Smokefree.gov, which connects you with your [facility]'s Quitline, (6-462-CWSGNSC) [facility] Smoking Quitline, (9-260-QWSCCNA) Discussed and educated pt regarding benzodiazepines are generally not intended for prolonged use and that use can cause tolerance, dependence, depression, and associated memory issues including dementias (this list is not exhaustive). Benzodiazepine use is generally not recommended concurrently with pain medications and/or other controlled substances educated on all medications, benefits, side effects and risk, and educated on depression, anxiety, and ADHD, mood d/o and educated on compliance of medications, metabolic and movement d/o education appointment is, continue therapy discussion with patient about course of treatment and patient instructions. education on serotonin syndrome SSRI/SNRI side effects discussed including but not limited to, gastric upset, nausea, vomiting, diarrhea and/or constipation, weight changes, sexual side effects including loss of libido, increased suicidal thoughts/behavior s in children and young adults, and serotonin syndrome. Second generation antipsychotics (SGAs) have metabolic syndrome issues with weight gain, increase in prolactin, increased waist circumference, increased lipids, and increased glucose. Thus routine monitoring of weight, metabolic labs, etc. is indicated. A general rank ordering of antipsychotics that have the greatest to the least risk of metabolic effects is olanzapine, quetiapine, risperidone, ziprasidone, and aripiprazole. However, weight gain can occur with all of these drugs and considerable variability exists among patients receiving the same drug regarding the risk of metabolic effects. Anti-psychotic agents not only increase the risk of metabolic disorder, they also increase the risk of CVA, akathisia, and movement disorders including EPS or tardive dyskinesia (more common with first generation antipsychotics) and more. Elderly- discussed risks, cognition, sedation, falls, metabolic, movement and atypical antipsychotics carry a black-box warning for increased risk of and cerebrovascular events in dementia. Medication Management and Follow-Up - Plan: - Schedule follow-up appointments every 1-3 months to monitor the patient's response to the medication regimen. - Reinforce the importance of avoiding recreational drug use due to potential neurotoxicity and interactions with prescribed medications. websites http_s://www.nim .nih.gov/health/t opics/mental-heal th-medications http_s://www.alen .org/About-Mental -Illness/Treatmen ts/Mental-Health- Medications http_s://www.3KeyIt .org/About-Mental -Illness/Mental-H ealth-Conditions http_s://Digital T[employer]el/depressi on/the-cognitive- lrzyhzsg-hj-beyss ssion#treatments http__s://www.[facility].nih.gov/health/ topics/mental-hea lth-medications http__s://www.[address].[employer]/About-Menta l-Illness/Treatme nts/Mental-Health -Medications http_s://judi.nih .gov/publications /drugfacts/cannab is-marijuana http_s://www.Coresonic/canna eyt-rtm-folhecgv- marijuana-adhd/ 09/13/2024 Nicotine use (ICD-10 - Z72.0) Deciding About Using Medicines To Quit Smoking material was published, Quitting Tobacco: Care Instructions material was published, Stopping Smokeless Tobacco Use: Care Instructions material was published, Learning About Benefits of Quitting Smoking material was published presently on Depakote 500 mg - 2 tabs bedtime, Wellbutrin 150 mg daily in am, Seroquel 400 mg bedtime, Diazepam 5 mg twice day, Ambien 10 mg bedtime 1. Depression vs Bipolar II refer to therapy HX ECT Wellbutrin 150 mg daily in am,- will d/c to r/o tinnitus and help with agitation/irritab le Seroquel 400 mg bedtime AIMS= 0 09/13/24 2. Anxiety Diazepam 5 mg twice day- plan to taper off in near future discuss and educated on rx options add Cymbalta 30 mg daily in am for 2 weeks then increase Cymbalta 60 mg daily in am educated patient on why Benzo and control sleep rx should not be taken together and respiratory risk 3. Insomnia patient will see PCP 09/14/24 and discuss sleep study obtain labs PCP decrease Ambien 5 mg bedtime Add Trazodone 50 mg at bedtime sleep hygeine education educated patient on why Benzo and control sleep rx should not be taken together and respiratory risk discuss Ambien at high dose and discuss rx options for sleep Ambien Complex Sleep Behaviors complex sleep behaviors may occur, incl. sleep-walking, sleep-driving, and engaging in other activities while not fully awake; may result in serious injuries, incl. ; D/C immediately if pt experiences a complex sleep behavior 4. OCD 5. Agitated Depakote 500 mg - 2 tabs bedtime labs ordered educated on all rx 6.elevated blood pressure educated on healthy b/p 120/80 monitor b/p at home refer to PCP, heart healthy diet and excise limit salt intake limit soda intake and caffiene increase water 5. vaping Smoking Education Do not smoke. Nicotine and other chemicals in cigarettes and cigars can cause lung damage. Ask your healthcare provider for information if you currently smoke and need help to quit. E-cigarettes or smokeless tobacco still contain nicotine. Talk to your healthcare provider before you use these products. education on decrease to stopping nicotine products and stop smoking hotline given -Quit - Yes [place] Tobacco Quitline Call a Smoking Quitline The [employer] Smoking Quitline, (9-442-89B-QUIT) Smokefree.gov, which connects you with your State's Quitline, (5-349-SEADURN) Veterans Smoking Quitline, (8-281-AUYLEME) Discussed and educated pt regarding benzodiazepines are generally not intended for prolonged use and that use can cause tolerance, dependence, depression, and associated memory issues including dementias (this list is not exhaustive). Benzodiazepine use is generally not recommended concurrently with pain medications and/or other controlled substances educated on all medications, benefits, side effects and risk, and educated on depression, anxiety, and ADHD, mood d/o and educated on compliance of medications, metabolic and movement d/o education appointment is, continue therapy discussion with patient about course of treatment and patient instructions. education on serotonin syndrome SSRI/SNRI side effects discussed including but not limited to, gastric upset, nausea, vomiting, diarrhea and/or constipation, weight changes, sexual side effects including loss of libido, increased suicidal thoughts/behavior s in children and young adults, and serotonin syndrome. Second generation antipsychotics (SGAs) have metabolic syndrome issues with weight gain, increase in prolactin, increased waist circumference, increased lipids, and increased glucose. Thus routine monitoring of weight, metabolic labs, etc. is indicated. A general rank ordering of antipsychotics that have the greatest to the least risk of metabolic effects is olanzapine, quetiapine, risperidone, ziprasidone, and aripiprazole. However, weight gain can occur with all of these drugs and considerable variability exists among patients receiving the same drug regarding the risk of metabolic effects. Anti-psychotic agents not only increase the risk of metabolic disorder, they also increase the risk of CVA, akathisia, and movement disorders including EPS or tardive dyskinesia (more common with first generation antipsychotics) and more. Elderly- discussed risks, cognition, sedation, falls, metabolic, movement and atypical antipsychotics carry a black-box warning for increased risk of and cerebrovascular events in dementia. Medication Management and Follow-Up - Plan: - Schedule follow-up appointments every 1-3 months to monitor the patient's response to the medication regimen. - Reinforce the importance of avoiding recreational drug use due to potential neurotoxicity and interactions with prescribed medications. websites http_s://www.nimh .nih.gov/health/t opics/mental-heal th-medications http_s://www.alen .org/About-Mental -Illness/Treatmen ts/Mental-Health- Medications http_s://www.alen .org/About-Mental -Illness/Mental-H ealth-Conditions http_s://psychcen 3KeyItl.com/depressi on/the-cognitive- fcqiafez-hd-ievtb ssion#treatments http__s://www.nim h.nih.gov/health/ topics/mental-hea [facility]-medications http__s://www.nam i.org/About-Menta l-Illness/Treatme nts/Mental-Health -Medications http_s://judi.nih .gov/publications /drugfacts/cannab is-marijuana http_s://[employer] sjm-qak-dkewmoca- marijuana-adhd/ 10/14/2024 MDD (major depressive disorder), recurrent episode, moderate (ICD-10 - F33.1) Preventing Depression From Coming Back: Care Instructions material was published, Learning About How to Get Help During a Mental Health Crisis material was published, Learning About Depression material was published, Learning About Depression Screening material was published, Seasonal Affective Disorder: Care Instructions material was published 1. Depression vs Bipolar II refer to therapy HX ECT improved tinnitus and agitation/irritab le- off Wellbutrin Seroquel 400 mg bedtime AIMS= 0 09/13/24 2. Anxiety Diazepam 5 mg twice day- plan to taper off in near future discuss and educated on rx options Cymbalta 60 mg daily in am educated patient on why Benzo and control sleep rx should not be taken together and respiratory risk 3. Insomnia patient will see PCP 09/14/24 and discuss sleep study obtain labs PCP Ambien 5 mg bedtime Trazodone 50 mg at bedtime- helps sleep sleep hygeine education educated patient Benzo and control sleep rx should not be taken together and respiratory risk discuss Ambien and discuss rx options for sleep Ambien Complex Sleep Behaviors complex sleep behaviors may occur, incl. sleep-walking, sleep-driving, and engaging in other activities while not fully awake; may result in serious injuries, incl. ; D/C immediately if pt experiences a complex sleep behavior 4. OCD 5. Agitated Depakote 500 mg - 2 tabs bedtime labs ordered last visit educated on all rx 6.elevated blood pressure educated on healthy b/p 120/80 monitor b/p at home refer to PCP, heart healthy diet and excise limit salt intake limit soda intake and caffiene increase water 5. vaping Smoking Education Do not smoke. Nicotine and other chemicals in cigarettes and cigars can cause lung damage. Ask your healthcare provider for information if you currently smoke and need help to quit. E-cigarettes or smokeless tobacco still contain nicotine. Talk to your healthcare provider before you use these products. education on decrease to stopping nicotine products and stop smoking hotline given Quit - Yes [place] Tobacco Quitline Call a Smoking Quitline The [employer] Smoking Quitline, (6-898-99S-QUIT) Smokefree.gov, which connects you with your State's Quitline, (0-972-UPXULTM) Veterans Smoking Quitline, (8-292-RPBUKGT) Discussed and educated pt regarding benzodiazepines are generally not intended for prolonged use and that use can cause tolerance, dependence, depression, and associated memory issues including dementias (this list is not exhaustive). Benzodiazepine use is generally not recommended concurrently with pain medications and/or other controlled substances educated on all medications, benefits, side effects and risk, and educated on depression, anxiety, and ADHD, mood d/o and educated on compliance of medications, metabolic and movement d/o education appointment is, continue therapy discussion with patient about course of treatment and patient instructions. education on serotonin syndrome SSRI/SNRI side effects discussed including but not limited to, gastric upset, nausea, vomiting, diarrhea and/or constipation, weight changes, sexual side effects including loss of libido, increased suicidal thoughts/behavior s in children and young adults, and serotonin syndrome. Second generation antipsychotics (SGAs) have metabolic syndrome issues with weight gain, increase in prolactin, increased waist circumference, increased lipids, and increased glucose. Thus routine monitoring of weight, metabolic labs, etc. is indicated. A general rank ordering of antipsychotics that have the greatest to the least risk of metabolic effects is olanzapine, quetiapine, risperidone, ziprasidone, and aripiprazole. However, weight gain can occur with all of these drugs and considerable variability exists among patients receiving the same drug regarding the risk of metabolic effects. Anti-psychotic agents not only increase the risk of metabolic disorder, they also increase the risk of CVA, akathisia, and movement disorders including EPS or tardive dyskinesia (more common with first generation antipsychotics) and more. Elderly- discussed risks, cognition, sedation, falls, metabolic, movement and atypical antipsychotics carry a black-box warning for increased risk of and cerebrovascular events in dementia. Medication Management and Follow-Up - Plan: - Schedule follow-up appointments every 1-3 months to monitor the patient's response to the medication regimen. - Reinforce the importance of avoiding recreational drug use due to potential neurotoxicity and interactions with prescribed medications. websites http_s://www.[facility] .nih.gov/health/t opics/mental-heal th-medications http_s://www.alen .org/About-Mental -Illness/Treatmen ts/Mental-Health- Medications http_s://www.3KeyIt .org/About-Mental -Illness/Mental-H ealth-Conditions http_s://Digital Trowel/depressi on/the-cognitive- nlsaheqo-rf-cpydq ssion#treatments http__s://www.[facility].nih.gov/health/ topics/mental-hea lth-medications http__s://www.[employer]/About-Menta l-Illness/Treatme nts/Mental-Health -Medications http_s://judi.nih .gov/publications /drugfacts/cannab is-marijuana http_s://www.Coresonic/[employer] Medical[employer]her twf-xyi-apqmmjpi- marijuana-adhd/ 10/14/2024 Nicotine use (ICD-10 - Z72.0) Deciding About Using Medicines To Quit Smoking material was published, Quitting Tobacco: Care Instructions material was published, Stopping Smokeless Tobacco Use: Care Instructions material was published, Learning About Benefits of Quitting Smoking material was published 1. Depression vs Bipolar II refer to therapy HX ECT improved tinnitus and agitation/irritab le- off Wellbutrin Seroquel 400 mg bedtime AIMS= 0 09/13/24 2. Anxiety Diazepam 5 mg twice day- plan to taper off in near future discuss and educated on rx options Cymbalta 60 mg daily in am educated patient on why Benzo and control sleep rx should not be taken together and respiratory risk 3. Insomnia patient will see PCP 09/14/24 and discuss sleep study obtain labs PCP Ambien 5 mg bedtime Trazodone 50 mg at bedtime- helps sleep sleep hygeine education educated patient Benzo and control sleep rx should not be taken together and respiratory risk discuss Ambien and discuss rx options for sleep Ambien Complex Sleep Behaviors complex sleep behaviors may occur, incl. sleep-walking, sleep-driving, and engaging in other activities while not fully awake; may result in serious injuries, incl. ; D/C immediately if pt experiences a complex sleep behavior 4. OCD 5. Agitated Depakote 500 mg - 2 tabs bedtime labs ordered last visit educated on all rx 6.elevated blood pressure educated on healthy b/p 120/80 monitor b/p at home refer to PCP, heart healthy diet and excise limit salt intake limit soda intake and caffiene increase water 5. vaping Smoking Education Do not smoke. Nicotine and other chemicals in cigarettes and cigars can cause lung damage. Ask your healthcare provider for information if you currently smoke and need help to quit. E-cigarettes or smokeless tobacco still contain nicotine. Talk to your healthcare provider before you use these products. education on decrease to stopping nicotine products and stop smoking hotline given 134-Quit - Yes [place] Tobacco Quitline Call a Smoking Quitline The [employer] Smoking Quitline, (3-812-66E-QUIT) Smokefree.gov, which connects you with your State's Quitline, (7-265-EEUYRVB) [facility] Smoking Quitline, (0-684-TZMYZMU) Discussed and educated pt regarding benzodiazepines are generally not intended for prolonged use and that use can cause tolerance, dependence, depression, and associated memory issues including dementias (this list is not exhaustive). Benzodiazepine use is generally not recommended concurrently with pain medications and/or other controlled substances educated on all medications, benefits, side effects and risk, and educated on depression, anxiety, and ADHD, mood d/o and educated on compliance of medications, metabolic and movement d/o education appointment is, continue therapy discussion with patient about course of treatment and patient instructions. education on serotonin syndrome SSRI/SNRI side effects discussed including but not limited to, gastric upset, nausea, vomiting, diarrhea and/or constipation, weight changes, sexual side effects including loss of libido, increased suicidal thoughts/behavior s in children and young adults, and serotonin syndrome. Second generation antipsychotics (SGAs) have metabolic syndrome issues with weight gain, increase in prolactin, increased waist circumference, increased lipids, and increased glucose. Thus routine monitoring of weight, metabolic labs, etc. is indicated. A general rank ordering of antipsychotics that have the greatest to the least risk of metabolic effects is olanzapine, quetiapine, risperidone, ziprasidone, and aripiprazole. However, weight gain can occur with all of these drugs and considerable variability exists among patients receiving the same drug regarding the risk of metabolic effects. Anti-psychotic agents not only increase the risk of metabolic disorder, they also increase the risk of CVA, akathisia, and movement disorders including EPS or tardive dyskinesia (more common with first generation antipsychotics) and more. Elderly- discussed risks, cognition, sedation, falls, metabolic, movement and atypical antipsychotics carry a black-box warning for increased risk of and cerebrovascular events in dementia. Medication Management and Follow-Up - Plan: - Schedule follow-up appointments every 1-3 months to monitor the patient's response to the medication regimen. - Reinforce the importance of avoiding recreational drug use due to potential neurotoxicity and interactions with prescribed medications. websites http_s://www.nim .nih.gov/health/t opics/mental-heal th-medications http_s://www.alen .org/About-Mental -Illness/Treatmen ts/Mental-Health- Medications http_s://www.alen .org/About-Mental -Illness/Mental-H ealth-Conditions http_s://[employer]/depressi on/the-cognitive- khfrdcpl-pp-vjufg ssion#treatments http__s://www.[facility].nih.gov/health/ topics/mental-hea lth-medications http__s://www.judo i.org/About-Menta l-Illness/Treatme nts/Mental-Health -Medications http_s://judi.nih .gov/publications /drugfacts/cannab is-marijuana http_s://www.Coresonic/leeann uow-jqx-ahkaxqex- marijuana-adhd/ 01/13/2025 MDD (major depressive disorder), recurrent episode, mild (ICD-10 - F33.0) PATHOLOGY TISSUE (10/24/2024) Esophagus, esophageal biopsies r/o EOE: Squamous mucosa: focal mild esophagitis. Negative for eosinophils, keratosis, organisms, or viral inclusions on H and E. No eosinophils are seen. EGD (10/18/2024) Normal esophagus (biopsied). No endoscopic evidence of EoE. Normal stomach. Normal examined duodenum. No immediate complications. Recommendation: Advance diet as tolerated.. 1. Depression vs Bipolar II refer to therapy HX ECT 1. Depression improved tinnitus and agitation/irritab le- off Wellbutrin Seroquel 400 mg bedtime AIMS= 0 09/13/24 2. Anxiety Diazepam 5 mg twice day- plan to taper off in near future discuss and educated on rx options Cymbalta 60 mg daily in am educated patient on why Benzo and control sleep rx should not be taken together and respiratory risk 3. Insomnia patient will see PCP 09/14/24 and discuss sleep study obtain labs PCP Ambien 5 mg bedtime Trazodone 50 mg at bedtime- helps sleep sleep hygeine education educated patient Benzo and control sleep rx should not be taken together and respiratory risk discuss Ambien and discuss rx options for sleep Ambien Complex Sleep Behaviors complex sleep behaviors may occur, incl. sleep-walking, sleep-driving, and engaging in other activities while not fully awake; may result in serious injuries, incl. ; D/C immediately if pt experiences a complex sleep behavior 4. OCD 5. Agitated Depakote 500 mg - 2 tabs bedtime labs ordered educated on all rx 6.elevated blood pressure educated on healthy b/p 120/80 monitor b/p at home refer to PCP, heart healthy diet and excise limit salt intake limit soda intake and caffiene increase water 5. vaping Smoking Education Do not smoke. Nicotine and other chemicals in cigarettes and cigars can cause lung damage. Ask your healthcare provider for information if you currently smoke and need help to quit. E-cigarettes or smokeless tobacco still contain nicotine. Talk to your healthcare provider before you use these products. education on decrease to stopping nicotine products and stop smoking hotline given -Quit - Yes [place] Tobacco Quitline Call a Smoking Quitline [employer] Smoking Quitline, (1-957-46L-QUIT) Smokefree.gov, which connects you with your State's Quitline, (3-770-BBJPLFC) [facility] Smoking Quitline, (1-803-QOZEKYQ) Discussed and educated pt regarding benzodiazepines are generally not intended for prolonged use and that use can cause tolerance, dependence, depression, and associated memory issues including dementias (this list is not exhaustive). Benzodiazepine use is generally not recommended concurrently with pain medications and/or other controlled substances educated on all medications, benefits, side effects and risk, and educated on depression, anxiety, and ADHD, mood d/o and educated on compliance of medications, metabolic and movement d/o education appointment is, continue therapy discussion with patient about course of treatment and patient instructions. education on serotonin syndrome SSRI/SNRI side effects discussed including but not limited to, gastric upset, nausea, vomiting, diarrhea and/or constipation, weight changes, sexual side effects including loss of libido, increased suicidal thoughts/behavior s in children and young adults, and serotonin syndrome. Second generation antipsychotics (SGAs) have metabolic syndrome issues with weight gain, increase in prolactin, increased waist circumference, increased lipids, and increased glucose. Thus routine monitoring of weight, metabolic labs, etc. is indicated. A general rank ordering of antipsychotics that have the greatest to the least risk of metabolic effects is olanzapine, quetiapine, risperidone, ziprasidone, and aripiprazole. However, weight gain can occur with all of these drugs and considerable variability exists among patients receiving the same drug regarding the risk of metabolic effects. Anti-psychotic agents not only increase the risk of metabolic disorder, they also increase the risk of CVA, akathisia, and movement disorders including EPS or tardive dyskinesia (more common with first generation antipsychotics) and more. Elderly- discussed risks, cognition, sedation, falls, metabolic, movement and atypical antipsychotics carry a black-box warning for increased risk of and cerebrovascular events in dementia. Medication Management and Follow-Up - Plan: - Schedule follow-up appointments every 1-3 months to monitor the patient's response to the medication regimen. - Reinforce the importance of avoiding recreational drug use due to potential neurotoxicity and interactions with prescribed medications. websites http_s://www.nimh .nih.gov/health/t opics/mental-heal th-medications http_s://www.alen .org/About-Mental -Illness/Treatmen ts/Mental-Health- Medications http_s://www.alen .org/About-Mental -Illness/Mental-H ealth-Conditions http_s://Digital Trowel/depressi on/the-cognitive- iinizicv-ar-njxww ssion#treatments http__s://www.[facility].nih.gov/health/ topics/mental-hea lth-medications http__s://www.nam i.org/About-Menta l-Illness/Treatme nts/Mental-Health -Medications http_s://judi.nih .gov/publications /drugfacts/cannab is-marijuana http_s://www[employer] Drop/canna uen-fee-wpsmrfqi- marijuana-adhd/ 01/13/2025 Nicotine use (ICD-10 - Z72.0) Deciding About Using Medicines To Quit Smoking material was published, Quitting Tobacco: Care Instructions material was published, Stopping Smokeless Tobacco Use: Care Instructions material was published, Learning About Benefits of Quitting Smoking material was published PATHOLOGY TISSUE (10/24/2024) Esophagus, esophageal biopsies r/o EOE: Squamous mucosa: focal mild esophagitis. Negative for eosinophils, keratosis, organisms, or viral inclusions on H and E. No eosinophils are seen. EGD (10/18/2024) Normal esophagus (biopsied). No endoscopic evidence of EoE. Normal stomach. Normal examined duodenum. No immediate complications. Recommendation: Advance diet as tolerated.. 1. Depression vs Bipolar II refer to therapy HX ECT 1. Depression improved tinnitus and agitation/irritab le- off Wellbutrin Seroquel 400 mg bedtime AIMS= 0 09/13/24 2. Anxiety Diazepam 5 mg twice day- plan to taper off in near future discuss and educated on rx options Cymbalta 60 mg daily in am educated patient on why Benzo and control sleep rx should not be taken together and respiratory risk 3. Insomnia patient will see PCP 09/14/24 and discuss sleep study obtain labs PCP Ambien 5 mg bedtime Trazodone 50 mg at bedtime- helps sleep sleep hygeine education educated patient Benzo and control sleep rx should not be taken together and respiratory risk discuss Ambien and discuss rx options for sleep Ambien Complex Sleep Behaviors complex sleep behaviors may occur, incl. sleep-walking, sleep-driving, and engaging in other activities while not fully awake; may result in serious injuries, incl. ; D/C immediately if pt experiences a complex sleep behavior 4. OCD 5. Agitated Depakote 500 mg - 2 tabs bedtime labs ordered educated on all rx 6.elevated blood pressure educated on healthy b/p 120/80 monitor b/p at home refer to PCP, heart healthy diet and excise limit salt intake limit soda intake and caffiene increase water 5. vaping Smoking Education Do not smoke. Nicotine and other chemicals in cigarettes and cigars can cause lung damage. Ask your healthcare provider for information if you currently smoke and need help to quit. E-cigarettes or smokeless tobacco still contain nicotine. Talk to your healthcare provider before you use these products. education on decrease to stopping nicotine products and stop smoking hotline given -Quit - Yes [place] Tobacco Quitline Call a Smoking Quitline [employer] Smoking Quitline, (7-738-41T-QUIT) Smokefree.gov, which connects you with your State's Quitline, (7-009-FDOYKMI) [facility] Smoking Quitline, (0-318-LFZSCBK) Discussed and educated pt regarding benzodiazepines are generally not intended for prolonged use and that use can cause tolerance, dependence, depression, and associated memory issues including dementias (this list is not exhaustive). Benzodiazepine use is generally not recommended concurrently with pain medications and/or other controlled substances educated on all medications, benefits, side effects and risk, and educated on depression, anxiety, and ADHD, mood d/o and educated on compliance of medications, metabolic and movement d/o education appointment is, continue therapy discussion with patient about course of treatment and patient instructions. education on serotonin syndrome SSRI/SNRI side effects discussed including but not limited to, gastric upset, nausea, vomiting, diarrhea and/or constipation, weight changes, sexual side effects including loss of libido, increased suicidal thoughts/behavior s in children and young adults, and serotonin syndrome. Second generation antipsychotics (SGAs) have metabolic syndrome issues with weight gain, increase in prolactin, increased waist circumference, increased lipids, and increased glucose. Thus routine monitoring of weight, metabolic labs, etc. is indicated. A general rank ordering of antipsychotics that have the greatest to the least risk of metabolic effects is olanzapine, quetiapine, risperidone, ziprasidone, and aripiprazole. However, weight gain can occur with all of these drugs and considerable variability exists among patients receiving the same drug regarding the risk of metabolic effects. Anti-psychotic agents not only increase the risk of metabolic disorder, they also increase the risk of CVA, akathisia, and movement disorders including EPS or tardive dyskinesia (more common with first generation antipsychotics) and more. Elderly- discussed risks, cognition, sedation, falls, metabolic, movement and atypical antipsychotics carry a black-box warning for increased risk of and cerebrovascular events in dementia. Medication Management and Follow-Up - Plan: - Schedule follow-up appointments every 1-3 months to monitor the patient's response to the medication regimen. - Reinforce the importance of avoiding recreational drug use due to potential neurotoxicity and interactions with prescribed medications. websites http_s://www.nim .nih.gov/health/t opics/mental-heal th-medications http_s://www.alen .org/About-Mental -Illness/Treatmen ts/Mental-Health- Medications http_s://www.alen .org/About-Mental -Illness/Mental-H ealth-Conditions http_s://Digital Trowel/depressi on/the-cognitive- cdfsijqh-qk-wuiqx ssion#treatments http__s://www.[facility].nih.gov/health/ topics/mental-hea lth-medications http__s://www.judo i.org/About-Menta l-Illness/Treatme nts/Mental-Health -Medications http_s://judi.nih .gov/publications /drugfacts/cannab is-marijuana http_s://www.Coresonic/[employer] zvd-ptl-ewwssxgi- marijuana-adhd/ 01/17/2025 Primary insomnia (ICD-10 - F51.01) 01/13/2025 Encounter for screening for depression (ICD-10 - Z13.31) PATHOLOGY TISSUE (10/24/2024) Esophagus, esophageal biopsies r/o EOE: Squamous mucosa: focal mild esophagitis. Negative for eosinophils, keratosis, organisms, or viral inclusions on H and E. No eosinophils are seen. EGD (10/18/2024) Normal esophagus (biopsied). No endoscopic evidence of EoE. Normal stomach. Normal examined duodenum. No immediate complications. Recommendation: Advance diet as tolerated.. 1. Depression vs Bipolar II refer to therapy HX ECT 1. Depression improved tinnitus and agitation/irritab le- off Wellbutrin Seroquel 400 mg bedtime AIMS= 0 09/13/24 2. Anxiety Diazepam 5 mg twice day- plan to taper off in near future discuss and educated on rx options Cymbalta 60 mg daily in am educated patient on why Benzo and control sleep rx should not be taken together and respiratory risk 3. Insomnia patient will see PCP 09/14/24 and discuss sleep study obtain labs PCP Ambien 5 mg bedtime Trazodone 50 mg at bedtime- helps sleep sleep hygeine education educated patient Benzo and control sleep rx should not be taken together and respiratory risk discuss Ambien and discuss rx options for sleep Ambien Complex Sleep Behaviors complex sleep behaviors may occur, incl. sleep-walking, sleep-driving, and engaging in other activities while not fully awake; may result in serious injuries, incl. ; D/C immediately if pt experiences a complex sleep behavior 4. OCD 5. Agitated Depakote 500 mg - 2 tabs bedtime labs ordered educated on all rx 6.elevated blood pressure educated on healthy b/p 120/80 monitor b/p at home refer to PCP, heart healthy diet and excise limit salt intake limit soda intake and caffiene increase water 5. vaping Smoking Education Do not smoke. Nicotine and other chemicals in cigarettes and cigars can cause lung damage. Ask your healthcare provider for information if you currently smoke and need help to quit. E-cigarettes or smokeless tobacco still contain nicotine. Talk to your healthcare provider before you use these products. education on decrease to stopping nicotine products and stop smoking hotline given -Quit - Yes [place] Tobacco Quitline Call a Smoking Quitline [employer] Smoking Quitline, (0-238-29M-QUIT) Smokefree.gov, which connects you with your State's Quitline, (3-273-YVWQHWP) [facility] Smoking Quitline, (7-923-CHOQLEZ) Discussed and educated pt regarding benzodiazepines are generally not intended for prolonged use and that use can cause tolerance, dependence, depression, and associated memory issues including dementias (this list is not exhaustive). Benzodiazepine use is generally not recommended concurrently with pain medications and/or other controlled substances educated on all medications, benefits, side effects and risk, and educated on depression, anxiety, and ADHD, mood d/o and educated on compliance of medications, metabolic and movement d/o education appointment is, continue therapy discussion with patient about course of treatment and patient instructions. education on serotonin syndrome SSRI/SNRI side effects discussed including but not limited to, gastric upset, nausea, vomiting, diarrhea and/or constipation, weight changes, sexual side effects including loss of libido, increased suicidal thoughts/behavior s in children and young adults, and serotonin syndrome. Second generation antipsychotics (SGAs) have metabolic syndrome issues with weight gain, increase in prolactin, increased waist circumference, increased lipids, and increased glucose. Thus routine monitoring of weight, metabolic labs, etc. is indicated. A general rank ordering of antipsychotics that have the greatest to the least risk of metabolic effects is olanzapine, quetiapine, risperidone, ziprasidone, and aripiprazole. However, weight gain can occur with all of these drugs and considerable variability exists among patients receiving the same drug regarding the risk of metabolic effects. Anti-psychotic agents not only increase the risk of metabolic disorder, they also increase the risk of CVA, akathisia, and movement disorders including EPS or tardive dyskinesia (more common with first generation antipsychotics) and more. Elderly- discussed risks, cognition, sedation, falls, metabolic, movement and atypical antipsychotics carry a black-box warning for increased risk of and cerebrovascular events in dementia. Medication Management and Follow-Up - Plan: - Schedule follow-up appointments every 1-3 months to monitor the patient's response to the medication regimen. - Reinforce the importance of avoiding recreational drug use due to potential neurotoxicity and interactions with prescribed medications. websites http_s://www.nimh .nih.gov/health/t opics/mental-heal th-medications http_s://www.alen .org/About-Mental -Illness/Treatmen ts/Mental-Health- Medications http_s://www.alen .org/About-Mental -Illness/Mental-H ealth-Conditions http_s://psychcen [employer].com/depressi on/the-cognitive- zlltgoag-hc-ipovd ssion#treatments http__s://www.nim h.nih.gov/health/ topics/mental-hea lth-medications http__s://www.nam i.org/About-Menta l-Illness/Treatme nts/Mental-Health -Medications http_s://judi.nih .gov/publications /drugfacts/cannab is-marijuana http_s://wwwOperation Supply Drop/canna kll-jop-tvtttemh- marijuana-adhd/ 10/14/2024 Encounter for screening for depression (ICD-10 - Z13.31) 1. Depression vs Bipolar II refer to therapy HX ECT improved tinnitus and agitation/irritab le- off Wellbutrin Seroquel 400 mg bedtime AIMS= 0 09/13/24 2. Anxiety Diazepam 5 mg twice day- plan to taper off in near future discuss and educated on rx options Cymbalta 60 mg daily in am educated patient on why Benzo and control sleep rx should not be taken together and respiratory risk 3. Insomnia patient will see PCP 09/14/24 and discuss sleep study obtain labs PCP Ambien 5 mg bedtime Trazodone 50 mg at bedtime- helps sleep sleep hygeine education educated patient Benzo and control sleep rx should not be taken together and respiratory risk discuss Ambien and discuss rx options for sleep Ambien Complex Sleep Behaviors complex sleep behaviors may occur, incl. sleep-walking, sleep-driving, and engaging in other activities while not fully awake; may result in serious injuries, incl. ; D/C immediately if pt experiences a complex sleep behavior 4. OCD 5. Agitated Depakote 500 mg - 2 tabs bedtime labs ordered last visit educated on all rx 6.elevated blood pressure educated on healthy b/p 120/80 monitor b/p at home refer to PCP, heart healthy diet and excise limit salt intake limit soda intake and caffiene increase water 5. vaping Smoking Education Do not smoke. Nicotine and other chemicals in cigarettes and cigars can cause lung damage. Ask your healthcare provider for information if you currently smoke and need help to quit. E-cigarettes or smokeless tobacco still contain nicotine. Talk to your healthcare provider before you use these products. education on decrease to stopping nicotine products and stop smoking hotline given -Quit - Yes [place] Tobacco Quitline Call a Smoking Quitline [employer] Smoking Quitline, (7-872-63G-QUIT) Smokefree.gov, which connects you with your State's Quitline, (8-189-VCSASTU) [facility] Smoking Quitline, (4-622-CSKWDMX) Discussed and educated pt regarding benzodiazepines are generally not intended for prolonged use and that use can cause tolerance, dependence, depression, and associated memory issues including dementias (this list is not exhaustive). Benzodiazepine use is generally not recommended concurrently with pain medications and/or other controlled substances educated on all medications, benefits, side effects and risk, and educated on depression, anxiety, and ADHD, mood d/o and educated on compliance of medications, metabolic and movement d/o education appointment is, continue therapy discussion with patient about course of treatment and patient instructions. education on serotonin syndrome SSRI/SNRI side effects discussed including but not limited to, gastric upset, nausea, vomiting, diarrhea and/or constipation, weight changes, sexual side effects including loss of libido, increased suicidal thoughts/behavior s in children and young adults, and serotonin syndrome. Second generation antipsychotics (SGAs) have metabolic syndrome issues with weight gain, increase in prolactin, increased waist circumference, increased lipids, and increased glucose. Thus routine monitoring of weight, metabolic labs, etc. is indicated. A general rank ordering of antipsychotics that have the greatest to the least risk of metabolic effects is olanzapine, quetiapine, risperidone, ziprasidone, and aripiprazole. However, weight gain can occur with all of these drugs and considerable variability exists among patients receiving the same drug regarding the risk of metabolic effects. Anti-psychotic agents not only increase the risk of metabolic disorder, they also increase the risk of CVA, akathisia, and movement disorders including EPS or tardive dyskinesia (more common with first generation antipsychotics) and more. Elderly- discussed risks, cognition, sedation, falls, metabolic, movement and atypical antipsychotics carry a black-box warning for increased risk of and cerebrovascular events in dementia. Medication Management and Follow-Up - Plan: - Schedule follow-up appointments every 1-3 months to monitor the patient's response to the medication regimen. - Reinforce the importance of avoiding recreational drug use due to potential neurotoxicity and interactions with prescribed medications. websites http_s://www.nimh .nih.gov/health/t opics/mental-heal th-medications http_s://www.alen .org/About-Mental -Illness/Treatmen ts/Mental-Health- Medications http_s://www.alen .org/About-Mental -Illness/Mental-H ealth-Conditions http_s://[employer] T[employer]/depressi on/the-cognitive- amvqwvcl-nh-zlliv ssion#treatments http__s://www.[facility].nih.gov/health/ topics/mental-hea lth-medications http__s://www.[employer]/About-Menta l-Illness/Treatme nts/Mental-Health -Medications http_s://judi.nih .gov/publications /drugfacts/cannab is-marijuana http_s://www.Coresonic/canna umn-krc-pnxryuqz- marijuana-adhd/ 09/13/2024 Encounter for screening for depression (ICD-10 - Z13.31) presently on Depakote 500 mg - 2 tabs bedtime, Wellbutrin 150 mg daily in am, Seroquel 400 mg bedtime, Diazepam 5 mg twice day, Ambien 10 mg bedtime 1. Depression vs Bipolar II refer to therapy HX ECT Wellbutrin 150 mg daily in am,- will d/c to r/o tinnitus and help with agitation/irritab le Seroquel 400 mg bedtime AIMS= 0 09/13/24 2. Anxiety Diazepam 5 mg twice day- plan to taper off in near future discuss and educated on rx options add Cymbalta 30 mg daily in am for 2 weeks then increase Cymbalta 60 mg daily in am educated patient on why Benzo and control sleep rx should not be taken together and respiratory risk 3. Insomnia patient will see PCP 09/14/24 and discuss sleep study obtain labs PCP decrease Ambien 5 mg bedtime Add Trazodone 50 mg at bedtime sleep hygeine education educated patient on why Benzo and control sleep rx should not be taken together and respiratory risk discuss Ambien at high dose and discuss rx options for sleep Ambien Complex Sleep Behaviors complex sleep behaviors may occur, incl. sleep-walking, sleep-driving, and engaging in other activities while not fully awake; may result in serious injuries, incl. ; D/C immediately if pt experiences a complex sleep behavior 4. OCD 5. Agitated Depakote 500 mg - 2 tabs bedtime labs ordered educated on all rx 6.elevated blood pressure educated on healthy b/p 120/80 monitor b/p at home refer to PCP, heart healthy diet and excise limit salt intake limit soda intake and caffiene increase water 5. vaping Smoking Education Do not smoke. Nicotine and other chemicals in cigarettes and cigars can cause lung damage. Ask your healthcare provider for information if you currently smoke and need help to quit. E-cigarettes or smokeless tobacco still contain nicotine. Talk to your healthcare provider before you use these products. education on decrease to stopping nicotine products and stop smoking hotline given 486-Quit - Yes [place] Tobacco Quitline Call a Smoking Quitline The [employer] Smoking Quitline, (6-080-75Y-QUIT) Smokefree.gov, which connects you with your State's Quitline, (5-080-BZRPILX) [facility] Smoking Quitline, (3-574-XERIGOG) Discussed and educated pt regarding benzodiazepines are generally not intended for prolonged use and that use can cause tolerance, dependence, depression, and associated memory issues including dementias (this list is not exhaustive). Benzodiazepine use is generally not recommended concurrently with pain medications and/or other controlled substances educated on all medications, benefits, side effects and risk, and educated on depression, anxiety, and ADHD, mood d/o and educated on compliance of medications, metabolic and movement d/o education appointment is, continue therapy discussion with patient about course of treatment and patient instructions. education on serotonin syndrome SSRI/SNRI side effects discussed including but not limited to, gastric upset, nausea, vomiting, diarrhea and/or constipation, weight changes, sexual side effects including loss of libido, increased suicidal thoughts/behavior s in children and young adults, and serotonin syndrome. Second generation antipsychotics (SGAs) have metabolic syndrome issues with weight gain, increase in prolactin, increased waist circumference, increased lipids, and increased glucose. Thus routine monitoring of weight, metabolic labs, etc. is indicated. A general rank ordering of antipsychotics that have the greatest to the least risk of metabolic effects is olanzapine, quetiapine, risperidone, ziprasidone, and aripiprazole. However, weight gain can occur with all of these drugs and considerable variability exists among patients receiving the same drug regarding the risk of metabolic effects. Anti-psychotic agents not only increase the risk of metabolic disorder, they also increase the risk of CVA, akathisia, and movement disorders including EPS or tardive dyskinesia (more common with first generation antipsychotics) and more. Elderly- discussed risks, cognition, sedation, falls, metabolic, movement and atypical antipsychotics carry a black-box warning for increased risk of and cerebrovascular events in dementia. Medication Management and Follow-Up - Plan: - Schedule follow-up appointments every 1-3 months to monitor the patient's response to the medication regimen. - Reinforce the importance of avoiding recreational drug use due to potential neurotoxicity and interactions with prescribed medications. websites http_s://www.nimh .nih.gov/health/t opics/mental-heal th-medications http_s://www.alen .org/About-Mental -Illness/Treatmen ts/Mental-Health- Medications http_s://www.alen .org/About-Mental -Illness/Mental-H ealth-Conditions http_s://psychHousing.com/depressi on/the-cognitive- hrmqcrrb-rt-kdmrc ssion#treatments http__s://www.[facility].nih.gov/health/ topics/mental-hea lth-medications http__s://www.judo i.org/About-Menta l-Illness/Treatme nts/Mental-Health -Medications http_s://judi.nih .gov/publications /drugfacts/cannab is-marijuana http_s://www.Coresonic/leeann pcr-kza-tldvljek- marijuana-adhd/ 09/13/2024 Encounter for screening for cardiovascular disorders (ICD-10 - Z13.6) presently on Depakote 500 mg - 2 tabs bedtime, Wellbutrin 150 mg daily in am, Seroquel 400 mg bedtime, Diazepam 5 mg twice day, Ambien 10 mg bedtime 1. Depression vs Bipolar II refer to therapy HX ECT Wellbutrin 150 mg daily in am,- will d/c to r/o tinnitus and help with agitation/irritab le Seroquel 400 mg bedtime AIMS= 0 09/13/24 2. Anxiety Diazepam 5 mg twice day- plan to taper off in near future discuss and educated on rx options add Cymbalta 30 mg daily in am for 2 weeks then increase Cymbalta 60 mg daily in am educated patient on why Benzo and control sleep rx should not be taken together and respiratory risk 3. Insomnia patient will see PCP 09/14/24 and discuss sleep study obtain labs PCP decrease Ambien 5 mg bedtime Add Trazodone 50 mg at bedtime sleep hygeine education educated patient on why Benzo and control sleep rx should not be taken together and respiratory risk discuss Ambien at high dose and discuss rx options for sleep Ambien Complex Sleep Behaviors complex sleep behaviors may occur, incl. sleep-walking, sleep-driving, and engaging in other activities while not fully awake; may result in serious injuries, incl. ; D/C immediately if pt experiences a complex sleep behavior 4. OCD 5. Agitated Depakote 500 mg - 2 tabs bedtime labs ordered educated on all rx 6.elevated blood pressure educated on healthy b/p 120/80 monitor b/p at home refer to PCP, heart healthy diet and excise limit salt intake limit soda intake and caffiene increase water 5. vaping Smoking Education Do not smoke. Nicotine and other chemicals in cigarettes and cigars can cause lung damage. Ask your healthcare provider for information if you currently smoke and need help to quit. E-cigarettes or smokeless tobacco still contain nicotine. Talk to your healthcare provider before you use these products. education on decrease to stopping nicotine products and stop smoking hotline given -Quit - Yes [place] Tobacco Quitline Call a Smoking Quitline The [employer] Smoking Quitline, (8-775-64K-QUIT) Smokefree.gov, which connects you with your State's Quitline, (4-604-HREPCOL) [facility] Smoking Quitline, (7-884-UEGJOBJ) Discussed and educated pt regarding benzodiazepines are generally not intended for prolonged use and that use can cause tolerance, dependence, depression, and associated memory issues including dementias (this list is not exhaustive). Benzodiazepine use is generally not recommended concurrently with pain medications and/or other controlled substances educated on all medications, benefits, side effects and risk, and educated on depression, anxiety, and ADHD, mood d/o and educated on compliance of medications, metabolic and movement d/o education appointment is, continue therapy discussion with patient about course of treatment and patient instructions. education on serotonin syndrome SSRI/SNRI side effects discussed including but not limited to, gastric upset, nausea, vomiting, diarrhea and/or constipation, weight changes, sexual side effects including loss of libido, increased suicidal thoughts/behavior s in children and young adults, and serotonin syndrome. Second generation antipsychotics (SGAs) have metabolic syndrome issues with weight gain, increase in prolactin, increased waist circumference, increased lipids, and increased glucose. Thus routine monitoring of weight, metabolic labs, etc. is indicated. A general rank ordering of antipsychotics that have the greatest to the least risk of metabolic effects is olanzapine, quetiapine, risperidone, ziprasidone, and aripiprazole. However, weight gain can occur with all of these drugs and considerable variability exists among patients receiving the same drug regarding the risk of metabolic effects. Anti-psychotic agents not only increase the risk of metabolic disorder, they also increase the risk of CVA, akathisia, and movement disorders including EPS or tardive dyskinesia (more common with first generation antipsychotics) and more. Elderly- discussed risks, cognition, sedation, falls, metabolic, movement and atypical antipsychotics carry a black-box warning for increased risk of and cerebrovascular events in dementia. Medication Management and Follow-Up - Plan: - Schedule follow-up appointments every 1-3 months to monitor the patient's response to the medication regimen. - Reinforce the importance of avoiding recreational drug use due to potential neurotoxicity and interactions with prescribed medications. websites http_s://www.nimh .nih.gov/health/t opics/mental-heal th-medications http_s://www.alen .org/About-Mental -Illness/Treatmen ts/Mental-Health- Medications http_s://www.alen .org/About-Mental -Illness/Mental-H ealth-Conditions http_s://psychcen [employer].com/depressi on/the-cognitive- yiftazax-wk-ghkod ssion#treatments http__s://www.[facility].nih.gov/health/ topics/mental-hea lt-medications http__s://www.nam i.org/About-Menta l-Illness/Treatme nts/Mental-Health -Medications http_s://judi.nih .gov/publications /drugfacts/cannab is-marijuana http_s://www[employer] Drop/canntopher oyg-wni-spgjswwz- marijuana-adhd/ 10/14/2024 Encounter for screening for cardiovascular disorders (ICD-10 - Z13.6) 1. Depression vs Bipolar II refer to therapy HX ECT improved tinnitus and agitation/irritab le- off Wellbutrin Seroquel 400 mg bedtime AIMS= 0 09/13/24 2. Anxiety Diazepam 5 mg twice day- plan to taper off in near future discuss and educated on rx options Cymbalta 60 mg daily in am educated patient on why Benzo and control sleep rx should not be taken together and respiratory risk 3. Insomnia patient will see PCP 09/14/24 and discuss sleep study obtain labs PCP Ambien 5 mg bedtime Trazodone 50 mg at bedtime- helps sleep sleep hygeine education educated patient Benzo and control sleep rx should not be taken together and respiratory risk discuss Ambien and discuss rx options for sleep Ambien Complex Sleep Behaviors complex sleep behaviors may occur, incl. sleep-walking, sleep-driving, and engaging in other activities while not fully awake; may result in serious injuries, incl. ; D/C immediately if pt experiences a complex sleep behavior 4. OCD 5. Agitated Depakote 500 mg - 2 tabs bedtime labs ordered last visit educated on all rx 6.elevated blood pressure educated on healthy b/p 120/80 monitor b/p at home refer to PCP, heart healthy diet and excise limit salt intake limit soda intake and caffiene increase water 5. vaping Smoking Education Do not smoke. Nicotine and other chemicals in cigarettes and cigars can cause lung damage. Ask your healthcare provider for information if you currently smoke and need help to quit. E-cigarettes or smokeless tobacco still contain nicotine. Talk to your healthcare provider before you use these products. education on decrease to stopping nicotine products and stop smoking hotline given -Quit - Yes [place] Tobacco Quitline Call a Smoking Quitline The [employer] Smoking Quitline, (7-761-81F-QUIT) Smokefree.gov, which connects you with your State's Quitline, (8-273-PCXDZUZ) [facility] Smoking Quitline, (2-824-GEFEOXI) Discussed and educated pt regarding benzodiazepines are generally not intended for prolonged use and that use can cause tolerance, dependence, depression, and associated memory issues including dementias (this list is not exhaustive). Benzodiazepine use is generally not recommended concurrently with pain medications and/or other controlled substances educated on all medications, benefits, side effects and risk, and educated on depression, anxiety, and ADHD, mood d/o and educated on compliance of medications, metabolic and movement d/o education appointment is, continue therapy discussion with patient about course of treatment and patient instructions. education on serotonin syndrome SSRI/SNRI side effects discussed including but not limited to, gastric upset, nausea, vomiting, diarrhea and/or constipation, weight changes, sexual side effects including loss of libido, increased suicidal thoughts/behavior s in children and young adults, and serotonin syndrome. Second generation antipsychotics (SGAs) have metabolic syndrome issues with weight gain, increase in prolactin, increased waist circumference, increased lipids, and increased glucose. Thus routine monitoring of weight, metabolic labs, etc. is indicated. A general rank ordering of antipsychotics that have the greatest to the least risk of metabolic effects is olanzapine, quetiapine, risperidone, ziprasidone, and aripiprazole. However, weight gain can occur with all of these drugs and considerable variability exists among patients receiving the same drug regarding the risk of metabolic effects. Anti-psychotic agents not only increase the risk of metabolic disorder, they also increase the risk of CVA, akathisia, and movement disorders including EPS or tardive dyskinesia (more common with first generation antipsychotics) and more. Elderly- discussed risks, cognition, sedation, falls, metabolic, movement and atypical antipsychotics carry a black-box warning for increased risk of and cerebrovascular events in dementia. Medication Management and Follow-Up - Plan: - Schedule follow-up appointments every 1-3 months to monitor the patient's response to the medication regimen. - Reinforce the importance of avoiding recreational drug use due to potential neurotoxicity and interactions with prescribed medications. websites http_s://www.nimh .nih.gov/health/t opics/mental-heal th-medications http_s://www.alen .org/About-Mental -Illness/Treatmen ts/Mental-Health- Medications http_s://www.[employer] .org/About-Mental -Illness/Mental-H ealth-Conditions http_s://Digital T[employer]el/depressi on/the-cognitive- zmgitmhy-op-gskge ssion#treatments http__s://www.[facility].nih.gov/health/ topics/mental-hea lth-medications http__s://www.[employer]/About-Menta l-Illness/Treatme nts/Mental-Health -Medications http_s://judi.nih .gov/publications /drugfacts/cannab is-marijuana http_s://wwwOperation Supply Drop/canna ori-qju-qibdqvhy- marijuana-adhd/ 01/13/2025 DENICE (generalized anxiety disorder) (ICD-10 - F41.1) Generalized Anxiety Disorder: Care Instructions material was published, Learning About Generalized Anxiety Disorder material was published, Learning About Transcranial Magnetic Stimulation (TMS) material was published, Learning About Anxiety Disorders material was published PATHOLOGY TISSUE (10/24/2024) Esophagus, esophageal biopsies r/o EOE: Squamous mucosa: focal mild esophagitis. Negative for eosinophils, keratosis, organisms, or viral inclusions on H and E. No eosinophils are seen. EGD (10/18/2024) Normal esophagus (biopsied). No endoscopic evidence of EoE. Normal stomach. Normal examined duodenum. No immediate complications. Recommendation: Advance diet as tolerated.. 1. Depression vs Bipolar II refer to therapy HX ECT 1. Depression improved tinnitus and agitation/irritab le- off Wellbutrin Seroquel 400 mg bedtime AIMS= 0 09/13/24 2. Anxiety Diazepam 5 mg twice day- plan to taper off in near future discuss and educated on rx options Cymbalta 60 mg daily in am educated patient on why Benzo and control sleep rx should not be taken together and respiratory risk 3. Insomnia patient will see PCP 09/14/24 and discuss sleep study obtain labs PCP Ambien 5 mg bedtime Trazodone 50 mg at bedtime- helps sleep sleep hygeine education educated patient Benzo and control sleep rx should not be taken together and respiratory risk discuss Ambien and discuss rx options for sleep Ambien Complex Sleep Behaviors complex sleep behaviors may occur, incl. sleep-walking, sleep-driving, and engaging in other activities while not fully awake; may result in serious injuries, incl. ; D/C immediately if pt experiences a complex sleep behavior 4. OCD 5. Agitated Depakote 500 mg - 2 tabs bedtime labs ordered educated on all rx 6.elevated blood pressure educated on healthy b/p 120/80 monitor b/p at home refer to PCP, heart healthy diet and excise limit salt intake limit soda intake and caffiene increase water 5. vaping Smoking Education Do not smoke. Nicotine and other chemicals in cigarettes and cigars can cause lung damage. Ask your healthcare provider for information if you currently smoke and need help to quit. E-cigarettes or smokeless tobacco still contain nicotine. Talk to your healthcare provider before you use these products. education on decrease to stopping nicotine products and stop smoking hotline given 55-Quit - Yes [place] Tobacco Quitline Call a Smoking Quitline The [employer] Smoking Quitline, (6-350-66G-QUIT) Smokefree.gov, which connects you with your State's Quitline, (3-601-ECRXIGQ) [facility] Smoking Quitline, (8-607-LVHBRFM) Discussed and educated pt regarding benzodiazepines are generally not intended for prolonged use and that use can cause tolerance, dependence, depression, and associated memory issues including dementias (this list is not exhaustive). Benzodiazepine use is generally not recommended concurrently with pain medications and/or other controlled substances educated on all medications, benefits, side effects and risk, and educated on depression, anxiety, and ADHD, mood d/o and educated on compliance of medications, metabolic and movement d/o education appointment is, continue therapy discussion with patient about course of treatment and patient instructions. education on serotonin syndrome SSRI/SNRI side effects discussed including but not limited to, gastric upset, nausea, vomiting, diarrhea and/or constipation, weight changes, sexual side effects including loss of libido, increased suicidal thoughts/behavior s in children and young adults, and serotonin syndrome. Second generation antipsychotics (SGAs) have metabolic syndrome issues with weight gain, increase in prolactin, increased waist circumference, increased lipids, and increased glucose. Thus routine monitoring of weight, metabolic labs, etc. is indicated. A general rank ordering of antipsychotics that have the greatest to the least risk of metabolic effects is olanzapine, quetiapine, risperidone, ziprasidone, and aripiprazole. However, weight gain can occur with all of these drugs and considerable variability exists among patients receiving the same drug regarding the risk of metabolic effects. Anti-psychotic agents not only increase the risk of metabolic disorder, they also increase the risk of CVA, akathisia, and movement disorders including EPS or tardive dyskinesia (more common with first generation antipsychotics) and more. Elderly- discussed risks, cognition, sedation, falls, metabolic, movement and atypical antipsychotics carry a black-box warning for increased risk of and cerebrovascular events in dementia. Medication Management and Follow-Up - Plan: - Schedule follow-up appointments every 1-3 months to monitor the patient's response to the medication regimen. - Reinforce the importance of avoiding recreational drug use due to potential neurotoxicity and interactions with prescribed medications. websites http_s://www.nimh .nih.gov/health/t opics/mental-heal th-medications http_s://www.alen .org/About-Mental -Illness/Treatmen ts/Mental-Health- Medications http_s://www.alen .org/About-Mental -Illness/Mental-H ealth-Conditions http_s://psychcen 3KeyIt[employer]/depressi on/the-cognitive- onalhyex-nv-xprsm ssion#treatments http__s://www.nim .nih.gov/health/ topics/mental-hea lth-medications http__s://www.judo i.org/About-Menta l-Illness/Treatme nts/Mental-Health -Medications http_s://judi.nih .gov/publications /drugfacts/cannab is-marijuana http_s://www.C[employer]/canntopher rmc-zxh-poieoieg- marijuana-adhd/ 01/13/2025 Mixed obsessional thoughts and acts (ICD-10 - F42.2) Obsessive-Compu lsive Disorder: Care Instructions material was published PATHOLOGY TISSUE (10/24/2024) Esophagus, esophageal biopsies r/o EOE: Squamous mucosa: focal mild esophagitis. Negative for eosinophils, keratosis, organisms, or viral inclusions on H and E. No eosinophils are seen. EGD (10/18/2024) Normal esophagus (biopsied). No endoscopic evidence of EoE. Normal stomach. Normal examined duodenum. No immediate complications. Recommendation: Advance diet as tolerated.. 1. Depression vs Bipolar II refer to therapy HX ECT 1. Depression improved tinnitus and agitation/irritab le- off Wellbutrin Seroquel 400 mg bedtime AIMS= 0 09/13/24 2. Anxiety Diazepam 5 mg twice day- plan to taper off in near future discuss and educated on rx options Cymbalta 60 mg daily in am educated patient on why Benzo and control sleep rx should not be taken together and respiratory risk 3. Insomnia patient will see PCP 09/14/24 and discuss sleep study obtain labs PCP Ambien 5 mg bedtime Trazodone 50 mg at bedtime- helps sleep sleep hygeine education educated patient Benzo and control sleep rx should not be taken together and respiratory risk discuss Ambien and discuss rx options for sleep Ambien Complex Sleep Behaviors complex sleep behaviors may occur, incl. sleep-walking, sleep-driving, and engaging in other activities while not fully awake; may result in serious injuries, incl. ; D/C immediately if pt experiences a complex sleep behavior 4. OCD 5. Agitated Depakote 500 mg - 2 tabs bedtime labs ordered educated on all rx 6.elevated blood pressure educated on healthy b/p 120/80 monitor b/p at home refer to PCP, heart healthy diet and excise limit salt intake limit soda intake and caffiene increase water 5. vaping Smoking Education Do not smoke. Nicotine and other chemicals in cigarettes and cigars can cause lung damage. Ask your healthcare provider for information if you currently smoke and need help to quit. E-cigarettes or smokeless tobacco still contain nicotine. Talk to your healthcare provider before you use these products. education on decrease to stopping nicotine products and stop smoking hotline given -Quit - Yes [place] Tobacco Quitline Call a Smoking Quitline [employer] Smoking Quitline, (9-741-06W-QUIT) Smokefree.gov, which connects you with your State's Quitline, (8-367-TZJOMSC) Veterans Smoking Quitline, (8-554-XNGEPSJ) Discussed and educated pt regarding benzodiazepines are generally not intended for prolonged use and that use can cause tolerance, dependence, depression, and associated memory issues including dementias (this list is not exhaustive). Benzodiazepine use is generally not recommended concurrently with pain medications and/or other controlled substances educated on all medications, benefits, side effects and risk, and educated on depression, anxiety, and ADHD, mood d/o and educated on compliance of medications, metabolic and movement d/o education appointment is, continue therapy discussion with patient about course of treatment and patient instructions. education on serotonin syndrome SSRI/SNRI side effects discussed including but not limited to, gastric upset, nausea, vomiting, diarrhea and/or constipation, weight changes, sexual side effects including loss of libido, increased suicidal thoughts/behavior s in children and young adults, and serotonin syndrome. Second generation antipsychotics (SGAs) have metabolic syndrome issues with weight gain, increase in prolactin, increased waist circumference, increased lipids, and increased glucose. Thus routine monitoring of weight, metabolic labs, etc. is indicated. A general rank ordering of antipsychotics that have the greatest to the least risk of metabolic effects is olanzapine, quetiapine, risperidone, ziprasidone, and aripiprazole. However, weight gain can occur with all of these drugs and considerable variability exists among patients receiving the same drug regarding the risk of metabolic effects. Anti-psychotic agents not only increase the risk of metabolic disorder, they also increase the risk of CVA, akathisia, and movement disorders including EPS or tardive dyskinesia (more common with first generation antipsychotics) and more. Elderly- discussed risks, cognition, sedation, falls, metabolic, movement and atypical antipsychotics carry a black-box warning for increased risk of and cerebrovascular events in dementia. Medication Management and Follow-Up - Plan: - Schedule follow-up appointments every 1-3 months to monitor the patient's response to the medication regimen. - Reinforce the importance of avoiding recreational drug use due to potential neurotoxicity and interactions with prescribed medications. websites http_s://www.nim .nih.gov/health/t opics/mental-heal th-medications http_s://www.alen .org/About-Mental -Illness/Treatmen ts/Mental-Health- Medications http_s://www.alen .org/About-Mental -Illness/Mental-H ealth-Conditions http_s://Digital T[employer]/depressi on/the-cognitive- gpqqzwts-dt-yfcqr ssion#treatments http__s://www.[facility].nih.gov/health/ topics/mental-hea lth-medications http__s://www.judo i.org/About-Menta l-Illness/Treatme nts/Mental-Health -Medications http_s://judi.nih .gov/publications /drugfacts/cannab is-marijuana http_s://www[employer]/canntopher ywt-tnq-bbgaixmb- marijuana-adhd/ 10/14/2024 Dietary counseling and surveillance (ICD-10 - Z71.3) DASH Diet: Care Instructions material was published, Learning About Low-Fat Eating material was published, Learning About Low-Carbohydrat e Diets material was published, Learning About the Mediterranean Diet material was published, Learning About Healthy Weight material was published 1. Depression vs Bipolar II refer to therapy HX ECT improved tinnitus and agitation/irritab le- off Wellbutrin Seroquel 400 mg bedtime AIMS= 0 09/13/24 2. Anxiety Diazepam 5 mg twice day- plan to taper off in near future discuss and educated on rx options Cymbalta 60 mg daily in am educated patient on why Benzo and control sleep rx should not be taken together and respiratory risk 3. Insomnia patient will see PCP 09/14/24 and discuss sleep study obtain labs PCP Ambien 5 mg bedtime Trazodone 50 mg at bedtime- helps sleep sleep hygeine education educated patient Benzo and control sleep rx should not be taken together and respiratory risk discuss Ambien and discuss rx options for sleep Ambien Complex Sleep Behaviors complex sleep behaviors may occur, incl. sleep-walking, sleep-driving, and engaging in other activities while not fully awake; may result in serious injuries, incl. ; D/C immediately if pt experiences a complex sleep behavior 4. OCD 5. Agitated Depakote 500 mg - 2 tabs bedtime labs ordered last visit educated on all rx 6.elevated blood pressure educated on healthy b/p 120/80 monitor b/p at home refer to PCP, heart healthy diet and excise limit salt intake limit soda intake and caffiene increase water 5. vaping Smoking Education Do not smoke. Nicotine and other chemicals in cigarettes and cigars can cause lung damage. Ask your healthcare provider for information if you currently smoke and need help to quit. E-cigarettes or smokeless tobacco still contain nicotine. Talk to your healthcare provider before you use these products. education on decrease to stopping nicotine products and stop smoking hotline given 574-Quit - Yes [place] Tobacco Quitline Call a Smoking Quitline The [employer] Smoking Quitline, (2-750-36R-QUIT) Smokefree.gov, which connects you with your State's Quitline, (0-809-LISENMC) [facility] Smoking Quitline, (8-903-CUVCXDN) Discussed and educated pt regarding benzodiazepines are generally not intended for prolonged use and that use can cause tolerance, dependence, depression, and associated memory issues including dementias (this list is not exhaustive). Benzodiazepine use is generally not recommended concurrently with pain medications and/or other controlled substances educated on all medications, benefits, side effects and risk, and educated on depression, anxiety, and ADHD, mood d/o and educated on compliance of medications, metabolic and movement d/o education appointment is, continue therapy discussion with patient about course of treatment and patient instructions. education on serotonin syndrome SSRI/SNRI side effects discussed including but not limited to, gastric upset, nausea, vomiting, diarrhea and/or constipation, weight changes, sexual side effects including loss of libido, increased suicidal thoughts/behavior s in children and young adults, and serotonin syndrome. Second generation antipsychotics (SGAs) have metabolic syndrome issues with weight gain, increase in prolactin, increased waist circumference, increased lipids, and increased glucose. Thus routine monitoring of weight, metabolic labs, etc. is indicated. A general rank ordering of antipsychotics that have the greatest to the least risk of metabolic effects is olanzapine, quetiapine, risperidone, ziprasidone, and aripiprazole. However, weight gain can occur with all of these drugs and considerable variability exists among patients receiving the same drug regarding the risk of metabolic effects. Anti-psychotic agents not only increase the risk of metabolic disorder, they also increase the risk of CVA, akathisia, and movement disorders including EPS or tardive dyskinesia (more common with first generation antipsychotics) and more. Elderly- discussed risks, cognition, sedation, falls, metabolic, movement and atypical antipsychotics carry a black-box warning for increased risk of and cerebrovascular events in dementia. Medication Management and Follow-Up - Plan: - Schedule follow-up appointments every 1-3 months to monitor the patient's response to the medication regimen. - Reinforce the importance of avoiding recreational drug use due to potential neurotoxicity and interactions with prescribed medications. websites http_s://www.[facility] .nih.gov/health/t opics/mental-heal th-medications http_s://www.[employer] .[facility]/About-Mental -Illness/Treatmen ts/Mental-Health- Medications http_s://www.[employer]KeyIt .org/About-Mental -Illness/Mental-H ealth-Conditions http_s://Digital [employer]/depressi on/the-cognitive- cyjxxgpa-fl-fffht ssion#treatments http__s://www.[facility].nih.gov/health/ topics/mental-hea lth-medications http__s://www.[employer]/About-Menta l-Illness/Treatme nts/Mental-Health -Medications http_s://judi.nih .gov/publications /drugfacts/cannab is-marijuana http_s://www.Coresonic/canna bnf-fqe-ipofhfhu- marijuana-adhd/ 09/13/2024 Dietary counseling and surveillance (ICD-10 - Z71.3) DASH Diet: Care Instructions material was published, Learning About Low-Fat Eating material was published, Learning About Low-Carbohydrat e Diets material was published, Learning About the Mediterranean Diet material was published, Learning About Healthy Weight material was published presently on Depakote 500 mg - 2 tabs bedtime, Wellbutrin 150 mg daily in am, Seroquel 400 mg bedtime, Diazepam 5 mg twice day, Ambien 10 mg bedtime 1. Depression vs Bipolar II refer to therapy HX ECT Wellbutrin 150 mg daily in am,- will d/c to r/o tinnitus and help with agitation/irritab le Seroquel 400 mg bedtime AIMS= 0 09/13/24 2. Anxiety Diazepam 5 mg twice day- plan to taper off in near future discuss and educated on rx options add Cymbalta 30 mg daily in am for 2 weeks then increase Cymbalta 60 mg daily in am educated patient on why Benzo and control sleep rx should not be taken together and respiratory risk 3. Insomnia patient will see PCP 09/14/24 and discuss sleep study obtain labs PCP decrease Ambien 5 mg bedtime Add Trazodone 50 mg at bedtime sleep hygeine education educated patient on why Benzo and control sleep rx should not be taken together and respiratory risk discuss Ambien at high dose and discuss rx options for sleep Ambien Complex Sleep Behaviors complex sleep behaviors may occur, incl. sleep-walking, sleep-driving, and engaging in other activities while not fully awake; may result in serious injuries, incl. ; D/C immediately if pt experiences a complex sleep behavior 4. OCD 5. Agitated Depakote 500 mg - 2 tabs bedtime labs ordered educated on all rx 6.elevated blood pressure educated on healthy b/p 120/80 monitor b/p at home refer to PCP, heart healthy diet and excise limit salt intake limit soda intake and caffiene increase water 5. vaping Smoking Education Do not smoke. Nicotine and other chemicals in cigarettes and cigars can cause lung damage. Ask your healthcare provider for information if you currently smoke and need help to quit. E-cigarettes or smokeless tobacco still contain nicotine. Talk to your healthcare provider before you use these products. education on decrease to stopping nicotine products and stop smoking hotline given -Quit - Yes [place] Tobacco Quitline Call a Smoking Quitline [employer] Smoking Quitline, (2-463-19M-QUIT) Smokefree.gov, which connects you with your State's Quitline, (4-670-IRFQGSB) Veterans Smoking Quitline, (7-602-HKXNOMT) Discussed and educated pt regarding benzodiazepines are generally not intended for prolonged use and that use can cause tolerance, dependence, depression, and associated memory issues including dementias (this list is not exhaustive). Benzodiazepine use is generally not recommended concurrently with pain medications and/or other controlled substances educated on all medications, benefits, side effects and risk, and educated on depression, anxiety, and ADHD, mood d/o and educated on compliance of medications, metabolic and movement d/o education appointment is, continue therapy discussion with patient about course of treatment and patient instructions. education on serotonin syndrome SSRI/SNRI side effects discussed including but not limited to, gastric upset, nausea, vomiting, diarrhea and/or constipation, weight changes, sexual side effects including loss of libido, increased suicidal thoughts/behavior s in children and young adults, and serotonin syndrome. Second generation antipsychotics (SGAs) have metabolic syndrome issues with weight gain, increase in prolactin, increased waist circumference, increased lipids, and increased glucose. Thus routine monitoring of weight, metabolic labs, etc. is indicated. A general rank ordering of antipsychotics that have the greatest to the least risk of metabolic effects is olanzapine, quetiapine, risperidone, ziprasidone, and aripiprazole. However, weight gain can occur with all of these drugs and considerable variability exists among patients receiving the same drug regarding the risk of metabolic effects. Anti-psychotic agents not only increase the risk of metabolic disorder, they also increase the risk of CVA, akathisia, and movement disorders including EPS or tardive dyskinesia (more common with first generation antipsychotics) and more. Elderly- discussed risks, cognition, sedation, falls, metabolic, movement and atypical antipsychotics carry a black-box warning for increased risk of and cerebrovascular events in dementia. Medication Management and Follow-Up - Plan: - Schedule follow-up appointments every 1-3 months to monitor the patient's response to the medication regimen. - Reinforce the importance of avoiding recreational drug use due to potential neurotoxicity and interactions with prescribed medications. websites http_s://www.nimh .nih.gov/health/t opics/mental-heal th-medications http_s://www.alen .org/About-Mental -Illness/Treatmen ts/Mental-Health- Medications http_s://www.alen .org/About-Mental -Illness/Mental-H ealth-Conditions http_s://psychcen tral.com/depressi on/the-cognitive- uzcsqxol-oa-uhpjr ssion#treatments http__s://www.nim h.nih.gov/health/ topics/mental-hea [facility]-medications http__s://www.nam i.org/About-Menta l-Illness/Treatme nts/Mental-Health -Medications http_s://judi.nih .gov/publications /drugfacts/cannab is-marijuana http_s://wwwOperation Supply Drop/cannIono Pharma hae-uxp-mpnfioel- marijuana-adhd/ 09/13/2024 Elevated blood pressure reading (ICD-10 - R03.0) High Blood Pressure: Care Instructions material was published, Learning About High Blood Pressure material was published presently on Depakote 500 mg - 2 tabs bedtime, Wellbutrin 150 mg daily in am, Seroquel 400 mg bedtime, Diazepam 5 mg twice day, Ambien 10 mg bedtime 1. Depression vs Bipolar II refer to therapy HX ECT Wellbutrin 150 mg daily in am,- will d/c to r/o tinnitus and help with agitation/irritab le Seroquel 400 mg bedtime AIMS= 0 09/13/24 2. Anxiety Diazepam 5 mg twice day- plan to taper off in near future discuss and educated on rx options add Cymbalta 30 mg daily in am for 2 weeks then increase Cymbalta 60 mg daily in am educated patient on why Benzo and control sleep rx should not be taken together and respiratory risk 3. Insomnia patient will see PCP 09/14/24 and discuss sleep study obtain labs PCP decrease Ambien 5 mg bedtime Add Trazodone 50 mg at bedtime sleep hygeine education educated patient on why Benzo and control sleep rx should not be taken together and respiratory risk discuss Ambien at high dose and discuss rx options for sleep Ambien Complex Sleep Behaviors complex sleep behaviors may occur, incl. sleep-walking, sleep-driving, and engaging in other activities while not fully awake; may result in serious injuries, incl. ; D/C immediately if pt experiences a complex sleep behavior 4. OCD 5. Agitated Depakote 500 mg - 2 tabs bedtime labs ordered educated on all rx 6.elevated blood pressure educated on healthy b/p 120/80 monitor b/p at home refer to PCP, heart healthy diet and excise limit salt intake limit soda intake and caffiene increase water 5. vaping Smoking Education Do not smoke. Nicotine and other chemicals in cigarettes and cigars can cause lung damage. Ask your healthcare provider for information if you currently smoke and need help to quit. E-cigarettes or smokeless tobacco still contain nicotine. Talk to your healthcare provider before you use these products. education on decrease to stopping nicotine products and stop smoking hotline given -Quit - Yes [place] Tobacco Quitline Call a Smoking Quitline [employer] Smoking Quitline, (6-554-62C-QUIT) Smokefree.gov, which connects you with your State's Quitline, (6-637-YPJDGUH) [facility] Smoking Quitline, (0-529-ZWBLIWJ) Discussed and educated pt regarding benzodiazepines are generally not intended for prolonged use and that use can cause tolerance, dependence, depression, and associated memory issues including dementias (this list is not exhaustive). Benzodiazepine use is generally not recommended concurrently with pain medications and/or other controlled substances educated on all medications, benefits, side effects and risk, and educated on depression, anxiety, and ADHD, mood d/o and educated on compliance of medications, metabolic and movement d/o education appointment is, continue therapy discussion with patient about course of treatment and patient instructions. education on serotonin syndrome SSRI/SNRI side effects discussed including but not limited to, gastric upset, nausea, vomiting, diarrhea and/or constipation, weight changes, sexual side effects including loss of libido, increased suicidal thoughts/behavior s in children and young adults, and serotonin syndrome. Second generation antipsychotics (SGAs) have metabolic syndrome issues with weight gain, increase in prolactin, increased waist circumference, increased lipids, and increased glucose. Thus routine monitoring of weight, metabolic labs, etc. is indicated. A general rank ordering of antipsychotics that have the greatest to the least risk of metabolic effects is olanzapine, quetiapine, risperidone, ziprasidone, and aripiprazole. However, weight gain can occur with all of these drugs and considerable variability exists among patients receiving the same drug regarding the risk of metabolic effects. Anti-psychotic agents not only increase the risk of metabolic disorder, they also increase the risk of CVA, akathisia, and movement disorders including EPS or tardive dyskinesia (more common with first generation antipsychotics) and more. Elderly- discussed risks, cognition, sedation, falls, metabolic, movement and atypical antipsychotics carry a black-box warning for increased risk of and cerebrovascular events in dementia. Medication Management and Follow-Up - Plan: - Schedule follow-up appointments every 1-3 months to monitor the patient's response to the medication regimen. - Reinforce the importance of avoiding recreational drug use due to potential neurotoxicity and interactions with prescribed medications. websites http_s://www.[facility] .nih.gov/health/t opics/mental-heal th-medications http_s://www.[employer]It .org/About-Mental -Illness/Treatmen ts/Mental-Health- Medications http_s://www.3KeyIt .org/About-Mental -Illness/Mental-H ealth-Conditions http_s://Digital Trowel/depressi on/the-cognitive- xqsikanh-xz-kvorg ssion#treatments http__s://www.[facility].nih.gov/health/ topics/mental-hea lth-medications http__s://www.judo i.[facility] [facility]/About-Menta l-Illness/Treatme nts/Mental-Health -Medications http_s://judi.nih .gov/publications /drugfacts/cannab is-marijuana http_s://www.Cores[employer]/canna zpj-fzu-lgxaisru- marijuana-adhd/ 10/14/2024 DENICE (generalized anxiety disorder) (ICD-10 - F41.1) Generalized Anxiety Disorder: Care Instructions material was published, Learning About Generalized Anxiety Disorder material was published, Learning About Transcranial Magnetic Stimulation (TMS) material was published, Learning About Anxiety Disorders material was published 1. Depression vs Bipolar II refer to therapy HX ECT improved tinnitus and agitation/irritab le- off Wellbutrin Seroquel 400 mg bedtime AIMS= 0 09/13/24 2. Anxiety Diazepam 5 mg twice day- plan to taper off in near future discuss and educated on rx options Cymbalta 60 mg daily in am educated patient on why Benzo and control sleep rx should not be taken together and respiratory risk 3. Insomnia patient will see PCP 09/14/24 and discuss sleep study obtain labs PCP Ambien 5 mg bedtime Trazodone 50 mg at bedtime- helps sleep sleep hygeine education educated patient Benzo and control sleep rx should not be taken together and respiratory risk discuss Ambien and discuss rx options for sleep Ambien Complex Sleep Behaviors complex sleep behaviors may occur, incl. sleep-walking, sleep-driving, and engaging in other activities while not fully awake; may result in serious injuries, incl. ; D/C immediately if pt experiences a complex sleep behavior 4. OCD 5. Agitated Depakote 500 mg - 2 tabs bedtime labs ordered last visit educated on all rx 6.elevated blood pressure educated on healthy b/p 120/80 monitor b/p at home refer to PCP, heart healthy diet and excise limit salt intake limit soda intake and caffiene increase water 5. vaping Smoking Education Do not smoke. Nicotine and other chemicals in cigarettes and cigars can cause lung damage. Ask your healthcare provider for information if you currently smoke and need help to quit. E-cigarettes or smokeless tobacco still contain nicotine. Talk to your healthcare provider before you use these products. education on decrease to stopping nicotine products and stop smoking hotline given 938-Quit - Yes [place] Tobacco Quitline Call a Smoking Quitline [employer] Smoking Quitline, (0-931-95H-QUIT) Smokefree.gov, which connects you with your State's Quitline, (9-764-CTZPSJK) [facility] Smoking Quitline, (3-239-DIYZVVB) Discussed and educated pt regarding benzodiazepines are generally not intended for prolonged use and that use can cause tolerance, dependence, depression, and associated memory issues including dementias (this list is not exhaustive). Benzodiazepine use is generally not recommended concurrently with pain medications and/or other controlled substances educated on all medications, benefits, side effects and risk, and educated on depression, anxiety, and ADHD, mood d/o and educated on compliance of medications, metabolic and movement d/o education appointment is, continue therapy discussion with patient about course of treatment and patient instructions. education on serotonin syndrome SSRI/SNRI side effects discussed including but not limited to, gastric upset, nausea, vomiting, diarrhea and/or constipation, weight changes, sexual side effects including loss of libido, increased suicidal thoughts/behavior s in children and young adults, and serotonin syndrome. Second generation antipsychotics (SGAs) have metabolic syndrome issues with weight gain, increase in prolactin, increased waist circumference, increased lipids, and increased glucose. Thus routine monitoring of weight, metabolic labs, etc. is indicated. A general rank ordering of antipsychotics that have the greatest to the least risk of metabolic effects is olanzapine, quetiapine, risperidone, ziprasidone, and aripiprazole. However, weight gain can occur with all of these drugs and considerable variability exists among patients receiving the same drug regarding the risk of metabolic effects. Anti-psychotic agents not only increase the risk of metabolic disorder, they also increase the risk of CVA, akathisia, and movement disorders including EPS or tardive dyskinesia (more common with first generation antipsychotics) and more. Elderly- discussed risks, cognition, sedation, falls, metabolic, movement and atypical antipsychotics carry a black-box warning for increased risk of and cerebrovascular events in dementia. Medication Management and Follow-Up - Plan: - Schedule follow-up appointments every 1-3 months to monitor the patient's response to the medication regimen. - Reinforce the importance of avoiding recreational drug use due to potential neurotoxicity and interactions with prescribed medications. websites http_s://www.nimh .nih.gov/health/t opics/mental-heal th-medications http_s://www.alen .org/About-Mental -Illness/Treatmen ts/Mental-Health- Medications http_s://www.alen .org/About-Mental -Illness/Mental-H ealth-Conditions http_s://psychcen tral.com/depressi on/the-cognitive- khstoido-jr-akwlx ssion#treatments http__s://www.nim .nih.gov/health/ topics/mental-hea lth-medications http__s://www.nam i.org/About-Menta l-Illness/Treatme nts/Mental-Health -Medications http_s://judi.nih .gov/publications /drugfacts/cannab is-marijuana http_s://www.Coresonic/leeann cbg-fhm-aiyejaxo- marijuana-adhd/ 01/13/2025 Primary insomnia (ICD-10 - F51.01) Insomnia: Care Instructions material was published, Learning About Sleeping Well material was published PATHOLOGY TISSUE (10/24/2024) Esophagus, esophageal biopsies r/o EOE: Squamous mucosa: focal mild esophagitis. Negative for eosinophils, keratosis, organisms, or viral inclusions on H and E. No eosinophils are seen. EGD (10/18/2024) Normal esophagus (biopsied). No endoscopic evidence of EoE. Normal stomach. Normal examined duodenum. No immediate complications. Recommendation: Advance diet as tolerated.. 1. Depression vs Bipolar II refer to therapy HX ECT 1. Depression improved tinnitus and agitation/irritab le- off Wellbutrin Seroquel 400 mg bedtime AIMS= 0 09/13/24 2. Anxiety Diazepam 5 mg twice day- plan to taper off in near future discuss and educated on rx options Cymbalta 60 mg daily in am educated patient on why Benzo and control sleep rx should not be taken together and respiratory risk 3. Insomnia patient will see PCP 09/14/24 and discuss sleep study obtain labs PCP Ambien 5 mg bedtime Trazodone 50 mg at bedtime- helps sleep sleep hygeine education educated patient Benzo and control sleep rx should not be taken together and respiratory risk discuss Ambien and discuss rx options for sleep Ambien Complex Sleep Behaviors complex sleep behaviors may occur, incl. sleep-walking, sleep-driving, and engaging in other activities while not fully awake; may result in serious injuries, incl. ; D/C immediately if pt experiences a complex sleep behavior 4. OCD 5. Agitated Depakote 500 mg - 2 tabs bedtime labs ordered educated on all rx 6.elevated blood pressure educated on healthy b/p 120/80 monitor b/p at home refer to PCP, heart healthy diet and excise limit salt intake limit soda intake and caffiene increase water 5. vaping Smoking Education Do not smoke. Nicotine and other chemicals in cigarettes and cigars can cause lung damage. Ask your healthcare provider for information if you currently smoke and need help to quit. E-cigarettes or smokeless tobacco still contain nicotine. Talk to your healthcare provider before you use these products. education on decrease to stopping nicotine products and stop smoking hotline given -Quit - Yes [place] Tobacco Quitline Call a Smoking Quitline [employer] Smoking Quitline, (8-773-55W-QUIT) Smokefree.gov, which connects you with your State's Quitline, (5-633-PKDMBVP) Veterans Smoking Quitline, (8-367-RPGJFPV) Discussed and educated pt regarding benzodiazepines are generally not intended for prolonged use and that use can cause tolerance, dependence, depression, and associated memory issues including dementias (this list is not exhaustive). Benzodiazepine use is generally not recommended concurrently with pain medications and/or other controlled substances educated on all medications, benefits, side effects and risk, and educated on depression, anxiety, and ADHD, mood d/o and educated on compliance of medications, metabolic and movement d/o education appointment is, continue therapy discussion with patient about course of treatment and patient instructions. education on serotonin syndrome SSRI/SNRI side effects discussed including but not limited to, gastric upset, nausea, vomiting, diarrhea and/or constipation, weight changes, sexual side effects including loss of libido, increased suicidal thoughts/behavior s in children and young adults, and serotonin syndrome. Second generation antipsychotics (SGAs) have metabolic syndrome issues with weight gain, increase in prolactin, increased waist circumference, increased lipids, and increased glucose. Thus routine monitoring of weight, metabolic labs, etc. is indicated. A general rank ordering of antipsychotics that have the greatest to the least risk of metabolic effects is olanzapine, quetiapine, risperidone, ziprasidone, and aripiprazole. However, weight gain can occur with all of these drugs and considerable variability exists among patients receiving the same drug regarding the risk of metabolic effects. Anti-psychotic agents not only increase the risk of metabolic disorder, they also increase the risk of CVA, akathisia, and movement disorders including EPS or tardive dyskinesia (more common with first generation antipsychotics) and more. Elderly- discussed risks, cognition, sedation, falls, metabolic, movement and atypical antipsychotics carry a black-box warning for increased risk of and cerebrovascular events in dementia. Medication Management and Follow-Up - Plan: - Schedule follow-up appointments every 1-3 months to monitor the patient's response to the medication regimen. - Reinforce the importance of avoiding recreational drug use due to potential neurotoxicity and interactions with prescribed medications. websites http_s://www.nimh .nih.gov/health/t opics/mental-heal th-medications http_s://www.alen .org/About-Mental -Illness/Treatmen ts/Mental-Health- Medications http_s://www.alen .org/About-Mental -Illness/Mental-H ealth-Conditions http_s://[employer]/depressi on/the-cognitive- zwijuocg-ju-hrdzb ssion#treatments http__s://www.[facility].nih.gov/health/ topics/mental-hea lth-medications http__s://www.judo i.org/About-Menta l-Illness/Treatme nts/Mental-Health -Medications http_s://judi.nih .gov/publications /drugfacts/cannab is-marijuana http_s://www.[employer]ores[employer]/[facility] pjb-dpu-qjdeainu- marijuana-adhd/ 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 Negative for eosinophils, keratosis, organisms, or viral inclusions on H and E. No eosinophils are seen. EGD (10/18/2024) Normal esophagus (biopsied). No endoscopic evidence of EoE. Normal stomach. Normal examined duodenum. No immediate complications. Recommendation: Advance diet as tolerated.. 1. Depression vs Bipolar II refer to therapy HX ECT 1. Depression improved tinnitus and agitation/irritab le- off Wellbutrin Seroquel 400 mg bedtime AIMS= 0 09/13/24 2. Anxiety Diazepam 5 mg twice day- plan to taper off in near future discuss and educated on rx options Cymbalta 60 mg daily in am educated patient on why Benzo and control sleep rx should not be taken together and respiratory risk 3. Insomnia patient will see PCP 09/14/24 and discuss sleep study obtain labs PCP Ambien 5 mg bedtime Trazodone 50 mg at bedtime- helps sleep sleep hygeine education educated patient Benzo and control sleep rx should not be taken together and respiratory risk discuss Ambien and discuss rx options for sleep Ambien Complex Sleep Behaviors complex sleep behaviors may occur, incl. sleep-walking, sleep-driving, and engaging in other activities while not fully awake; may result in serious injuries, incl. ; D/C immediately if pt experiences a complex sleep behavior 4. OCD 5. Agitated Depakote 500 mg - 2 tabs bedtime labs ordered educated on all rx 6.elevated blood pressure educated on healthy b/p 120/80 monitor b/p at home refer to PCP, heart healthy diet and excise limit salt intake limit soda intake and caffiene increase water 5. vaping Smoking Education Do not smoke. Nicotine and other chemicals in cigarettes and cigars can cause lung damage. Ask your healthcare provider for information if you currently smoke and need help to quit. E-cigarettes or smokeless tobacco still contain nicotine. Talk to your healthcare provider before you use these products. education on decrease to stopping nicotine products and stop smoking hotline given 519-Quit - Yes [place] Tobacco Quitline Call a Smoking Quitline [employer] Smoking Quitline, (2-383-29E-QUIT) Smokefree.gov, which connects you with your State's Quitline, (2-463-SMTEBQC) [facility] Smoking Quitline, (0-288-VCSQOCL) Discussed and educated pt regarding benzodiazepines are generally not intended for prolonged use and that use can cause tolerance, dependence, depression, and associated memory issues including dementias (this list is not exhaustive). Benzodiazepine use is generally not recommended concurrently with pain medications and/or other controlled substances educated on all medications, benefits, side effects and risk, and educated on depression, anxiety, and ADHD, mood d/o and educated on compliance of medications, metabolic and movement d/o education appointment is, continue therapy discussion with patient about course of treatment and patient instructions. education on serotonin syndrome SSRI/SNRI side effects discussed including but not limited to, gastric upset, nausea, vomiting, diarrhea and/or constipation, weight changes, sexual side effects including loss of libido, increased suicidal thoughts/behavior s in children and young adults, and serotonin syndrome. Second generation antipsychotics (SGAs) have metabolic syndrome issues with weight gain, increase in prolactin, increased waist circumference, increased lipids, and increased glucose. Thus routine monitoring of weight, metabolic labs, etc. is indicated. A general rank ordering of antipsychotics that have the greatest to the least risk of metabolic effects is olanzapine, quetiapine, risperidone, ziprasidone, and aripiprazole. However, weight gain can occur with all of these drugs and considerable variability exists among patients receiving the same drug regarding the risk of metabolic effects. Anti-psychotic agents not only increase the risk of metabolic disorder, they also increase the risk of CVA, akathisia, and movement disorders including EPS or tardive dyskinesia (more common with first generation antipsychotics) and more. Elderly- discussed risks, cognition, sedation, falls, metabolic, movement and atypical antipsychotics carry a black-box warning for increased risk of and cerebrovascular events in dementia. Medication Management and Follow-Up - Plan: - Schedule follow-up appointments every 1-3 months to monitor the patient's response to the medication regimen. - Reinforce the importance of avoiding recreational drug use due to potential neurotoxicity and interactions with prescribed medications. websites http_s://www.[facility] .nih.gov/health/t opics/mental-heal th-medications http_s://www.alen .org/About-Mental -Illness/Treatmen ts/Mental-Health- Medications http_s://www.alen .org/About-Mental -Illness/Mental-H ealth-Conditions http_s://Digital [employer]el/depressi on/the-cognitive- qdwskhkz-or-sbqzw ssion#treatments http__s://www.[facility].nih.gov/health/ topics/mental-hea lth-medications http__s://www.judo i.org/About-Menta l-Illness/Treatme nts/Mental-Health -Medications http_s://judi.nih .gov/publications /drugfacts/cannab is-marijuana http_s://www.Coresonic/[facility] xyl-ovs-jrhzvssb- marijuana-adhd/ 10/14/2024 Mixed obsessional thoughts and acts (ICD-10 - F42.2) Obsessive-Compu lsive Disorder: Care Instructions material was published 1. Depression vs Bipolar II refer to therapy HX ECT improved tinnitus and agitation/irritab le- off Wellbutrin Seroquel 400 mg bedtime AIMS= 0 09/13/24 2. Anxiety Diazepam 5 mg twice day- plan to taper off in near future discuss and educated on rx options Cymbalta 60 mg daily in am educated patient on why Benzo and control sleep rx should not be taken together and respiratory risk 3. Insomnia patient will see PCP 09/14/24 and discuss sleep study obtain labs PCP Ambien 5 mg bedtime Trazodone 50 mg at bedtime- helps sleep sleep hygeine education educated patient Benzo and control sleep rx should not be taken together and respiratory risk discuss Ambien and discuss rx options for sleep Ambien Complex Sleep Behaviors complex sleep behaviors may occur, incl. sleep-walking, sleep-driving, and engaging in other activities while not fully awake; may result in serious injuries, incl. ; D/C immediately if pt experiences a complex sleep behavior 4. OCD 5. Agitated Depakote 500 mg - 2 tabs bedtime labs ordered last visit educated on all rx 6.elevated blood pressure educated on healthy b/p 120/80 monitor b/p at home refer to PCP, heart healthy diet and excise limit salt intake limit soda intake and caffiene increase water 5. vaping Smoking Education Do not smoke. Nicotine and other chemicals in cigarettes and cigars can cause lung damage. Ask your healthcare provider for information if you currently smoke and need help to quit. E-cigarettes or smokeless tobacco still contain nicotine. Talk to your healthcare provider before you use these products. education on decrease to stopping nicotine products and stop smoking hotline given 388-Quit - Yes [place] Tobacco Quitline Call a Smoking Quitline [employer] Smoking Quitline, (4-756-62Y-QUIT) Smokefree.gov, which connects you with your State's Quitline, (7-687-UXCYQBS) Veterans Smoking Quitline, (8-166-NTBVGLN) Discussed and educated pt regarding benzodiazepines are generally not intended for prolonged use and that use can cause tolerance, dependence, depression, and associated memory issues including dementias (this list is not exhaustive). Benzodiazepine use is generally not recommended concurrently with pain medications and/or other controlled substances educated on all medications, benefits, side effects and risk, and educated on depression, anxiety, and ADHD, mood d/o and educated on compliance of medications, metabolic and movement d/o education appointment is, continue therapy discussion with patient about course of treatment and patient instructions. education on serotonin syndrome SSRI/SNRI side effects discussed including but not limited to, gastric upset, nausea, vomiting, diarrhea and/or constipation, weight changes, sexual side effects including loss of libido, increased suicidal thoughts/behavior s in children and young adults, and serotonin syndrome. Second generation antipsychotics (SGAs) have metabolic syndrome issues with weight gain, increase in prolactin, increased waist circumference, increased lipids, and increased glucose. Thus routine monitoring of weight, metabolic labs, etc. is indicated. A general rank ordering of antipsychotics that have the greatest to the least risk of metabolic effects is olanzapine, quetiapine, risperidone, ziprasidone, and aripiprazole. However, weight gain can occur with all of these drugs and considerable variability exists among patients receiving the same drug regarding the risk of metabolic effects. Anti-psychotic agents not only increase the risk of metabolic disorder, they also increase the risk of CVA, akathisia, and movement disorders including EPS or tardive dyskinesia (more common with first generation antipsychotics) and more. Elderly- discussed risks, cognition, sedation, falls, metabolic, movement and atypical antipsychotics carry a black-box warning for increased risk of and cerebrovascular events in dementia. Medication Management and Follow-Up - Plan: - Schedule follow-up appointments every 1-3 months to monitor the patient's response to the medication regimen. - Reinforce the importance of avoiding recreational drug use due to potential neurotoxicity and interactions with prescribed medications. websites http_s://www.[facility] .nih.gov/health/t opics/mental-heal th-medications http_s://www.alen .org/About-Mental -Illness/Treatmen ts/Mental-Health- Medications http_s://www.alen .org/About-Mental -Illness/Mental-H ealth-Conditions http_s://psychAnatexiscom/depressi on/the-cognitive- npukytqs-gs-slltv ssion#treatments http__s://www.[facility].nih.gov/health/ topics/mental-hea lth-medications http__s://www.nam i.org/About-Menta l-Illness/Treatme nts/Mental-Health -Medications http_s://judi.nih .gov/publications /drugfacts/cannab is-marijuana http_s://www.Coresonic/leeann vlv-vjx-vzsaimck- marijuana-adhd/ 09/13/2024 DENICE (generalized anxiety disorder) (ICD-10 - F41.1) Generalized Anxiety Disorder: Care Instructions material was published, Learning About Generalized Anxiety Disorder material was published, Learning About Transcranial Magnetic Stimulation (TMS) material was published, Learning About Anxiety Disorders material was published presently on Depakote 500 mg - 2 tabs bedtime, Wellbutrin 150 mg daily in am, Seroquel 400 mg bedtime, Diazepam 5 mg twice day, Ambien 10 mg bedtime 1. Depression vs Bipolar II refer to therapy HX ECT Wellbutrin 150 mg daily in am,- will d/c to r/o tinnitus and help with agitation/irritab le Seroquel 400 mg bedtime AIMS= 0 09/13/24 2. Anxiety Diazepam 5 mg twice day- plan to taper off in near future discuss and educated on rx options add Cymbalta 30 mg daily in am for 2 weeks then increase Cymbalta 60 mg daily in am educated patient on why Benzo and control sleep rx should not be taken together and respiratory risk 3. Insomnia patient will see PCP 09/14/24 and discuss sleep study obtain labs PCP decrease Ambien 5 mg bedtime Add Trazodone 50 mg at bedtime sleep hygeine education educated patient on why Benzo and control sleep rx should not be taken together and respiratory risk discuss Ambien at high dose and discuss rx options for sleep Ambien Complex Sleep Behaviors complex sleep behaviors may occur, incl. sleep-walking, sleep-driving, and engaging in other activities while not fully awake; may result in serious injuries, incl. ; D/C immediately if pt experiences a complex sleep behavior 4. OCD 5. Agitated Depakote 500 mg - 2 tabs bedtime labs ordered educated on all rx 6.elevated blood pressure educated on healthy b/p 120/80 monitor b/p at home refer to PCP, heart healthy diet and excise limit salt intake limit soda intake and caffiene increase water 5. vaping Smoking Education Do not smoke. Nicotine and other chemicals in cigarettes and cigars can cause lung damage. Ask your healthcare provider for information if you currently smoke and need help to quit. E-cigarettes or smokeless tobacco still contain nicotine. Talk to your healthcare provider before you use these products. education on decrease to stopping nicotine products and stop smoking hotline given Quit - Yes [place] Tobacco Quitline Call a Smoking Quitline [employer] Smoking Quitline, (8-354-85Y-QUIT) Smokefree.gov, which connects you with your State's Quitline, (1-211-HGWIYHV) [facility] Smoking Quitline, (5-700-MFXNSHC) Discussed and educated pt regarding benzodiazepines are generally not intended for prolonged use and that use can cause tolerance, dependence, depression, and associated memory issues including dementias (this list is not exhaustive). Benzodiazepine use is generally not recommended concurrently with pain medications and/or other controlled substances educated on all medications, benefits, side effects and risk, and educated on depression, anxiety, and ADHD, mood d/o and educated on compliance of medications, metabolic and movement d/o education appointment is, continue therapy discussion with patient about course of treatment and patient instructions. education on serotonin syndrome SSRI/SNRI side effects discussed including but not limited to, gastric upset, nausea, vomiting, diarrhea and/or constipation, weight changes, sexual side effects including loss of libido, increased suicidal thoughts/behavior s in children and young adults, and serotonin syndrome. Second generation antipsychotics (SGAs) have metabolic syndrome issues with weight gain, increase in prolactin, increased waist circumference, increased lipids, and increased glucose. Thus routine monitoring of weight, metabolic labs, etc. is indicated. A general rank ordering of antipsychotics that have the greatest to the least risk of metabolic effects is olanzapine, quetiapine, risperidone, ziprasidone, and aripiprazole. However, weight gain can occur with all of these drugs and considerable variability exists among patients receiving the same drug regarding the risk of metabolic effects. Anti-psychotic agents not only increase the risk of metabolic disorder, they also increase the risk of CVA, akathisia, and movement disorders including EPS or tardive dyskinesia (more common with first generation antipsychotics) and more. Elderly- discussed risks, cognition, sedation, falls, metabolic, movement and atypical antipsychotics carry a black-box warning for increased risk of and cerebrovascular events in dementia. Medication Management and Follow-Up - Plan: - Schedule follow-up appointments every 1-3 months to monitor the patient's response to the medication regimen. - Reinforce the importance of avoiding recreational drug use due to potential neurotoxicity and interactions with prescribed medications. websites http_s://www.[facility] .nih.gov/health/t opics/mental-heal th-medications http_s://www.alen .org/About-Mental -Illness/Treatmen ts/Mental-Health- Medications http_s://www.alen .org/About-Mental -Illness/Mental-H ealth-Conditions http_s://[employer]/depressi on/the-cognitive- fxuuhivy-sp-uueol ssion#treatments http__s://www.[facility].nih.gov/health/ topics/mental-hea lth-medications http__s://www.judo i.[employer]/About-Menta l-Illness/Treatme nts/Mental-Health -Medications http_s://judi.nih .gov/publications /drugfacts/cannab is-marijuana http_s://www.Cores[employer]/canna afe-lkp-rlvctiqu- marijuana-adhd/ 09/13/2024 Mixed obsessional thoughts and acts (ICD-10 - F42.2) Obsessive-Compu lsive Disorder: Care Instructions material was published presently on Depakote 500 mg - 2 tabs bedtime, Wellbutrin 150 mg daily in am, Seroquel 400 mg bedtime, Diazepam 5 mg twice day, Ambien 10 mg bedtime 1. Depression vs Bipolar II refer to therapy HX ECT Wellbutrin 150 mg daily in am,- will d/c to r/o tinnitus and help with agitation/irritab le Seroquel 400 mg bedtime AIMS= 0 09/13/24 2. Anxiety Diazepam 5 mg twice day- plan to taper off in near future discuss and educated on rx options add Cymbalta 30 mg daily in am for 2 weeks then increase Cymbalta 60 mg daily in am educated patient on why Benzo and control sleep rx should not be taken together and respiratory risk 3. Insomnia patient will see PCP 09/14/24 and discuss sleep study obtain labs PCP decrease Ambien 5 mg bedtime Add Trazodone 50 mg at bedtime sleep hygeine education educated patient on why Benzo and control sleep rx should not be taken together and respiratory risk discuss Ambien at high dose and discuss rx options for sleep Ambien Complex Sleep Behaviors complex sleep behaviors may occur, incl. sleep-walking, sleep-driving, and engaging in other activities while not fully awake; may result in serious injuries, incl. ; D/C immediately if pt experiences a complex sleep behavior 4. OCD 5. Agitated Depakote 500 mg - 2 tabs bedtime labs ordered educated on all rx 6.elevated blood pressure educated on healthy b/p 120/80 monitor b/p at home refer to PCP, heart healthy diet and excise limit salt intake limit soda intake and caffiene increase water 5. vaping Smoking Education Do not smoke. Nicotine and other chemicals in cigarettes and cigars can cause lung damage. Ask your healthcare provider for information if you currently smoke and need help to quit. E-cigarettes or smokeless tobacco still contain nicotine. Talk to your healthcare provider before you use these products. education on decrease to stopping nicotine products and stop smoking hotline given 464-Quit - Yes [place] Tobacco Quitline Call a Smoking Quitline [employer] Smoking Quitline, (8-047-47Y-QUIT) Smokefree.gov, which connects you with your State's Quitline, (8-174-HGIYNGL) [facility] Smoking Quitline, (7-028-EROGVLW) Discussed and educated pt regarding benzodiazepines are generally not intended for prolonged use and that use can cause tolerance, dependence, depression, and associated memory issues including dementias (this list is not exhaustive). Benzodiazepine use is generally not recommended concurrently with pain medications and/or other controlled substances educated on all medications, benefits, side effects and risk, and educated on depression, anxiety, and ADHD, mood d/o and educated on compliance of medications, metabolic and movement d/o education appointment is, continue therapy discussion with patient about course of treatment and patient instructions. education on serotonin syndrome SSRI/SNRI side effects discussed including but not limited to, gastric upset, nausea, vomiting, diarrhea and/or constipation, weight changes, sexual side effects including loss of libido, increased suicidal thoughts/behavior s in children and young adults, and serotonin syndrome. Second generation antipsychotics (SGAs) have metabolic syndrome issues with weight gain, increase in prolactin, increased waist circumference, increased lipids, and increased glucose. Thus routine monitoring of weight, metabolic labs, etc. is indicated. A general rank ordering of antipsychotics that have the greatest to the least risk of metabolic effects is olanzapine, quetiapine, risperidone, ziprasidone, and aripiprazole. However, weight gain can occur with all of these drugs and considerable variability exists among patients receiving the same drug regarding the risk of metabolic effects. Anti-psychotic agents not only increase the risk of metabolic disorder, they also increase the risk of CVA, akathisia, and movement disorders including EPS or tardive dyskinesia (more common with first generation antipsychotics) and more. Elderly- discussed risks, cognition, sedation, falls, metabolic, movement and atypical antipsychotics carry a black-box warning for increased risk of and cerebrovascular events in dementia. Medication Management and Follow-Up - Plan: - Schedule follow-up appointments every 1-3 months to monitor the patient's response to the medication regimen. - Reinforce the importance of avoiding recreational drug use due to potential neurotoxicity and interactions with prescribed medications. websites http_s://www.nim .nih.gov/health/t opics/mental-heal th-medications http_s://www.alen .org/About-Mental -Illness/Treatmen ts/Mental-Health- Medications http_s://www.alen .org/About-Mental -Illness/Mental-H ealth-Conditions http_s://psychcen tral.com/depressi on/the-cognitive- itrxqmio-sp-qsxna ssion#treatments http__s://www.nim .nih.gov/health/ topics/mental-hea lth-medications http__s://www.judo i.org/About-Menta l-Illness/Treatme nts/Mental-Health -Medications http_s://judi.nih .gov/publications /drugfacts/cannab is-marijuana http_s://www.Coresonic/justusa ony-fhr-jrzmgitp- marijuana-adhd/ 10/14/2024 Primary insomnia (ICD-10 - F51.01) Insomnia: Care Instructions material was published, Learning About Sleeping Well material was published 1. Depression vs Bipolar II refer to therapy HX ECT improved tinnitus and agitation/irritab le- off Wellbutrin Seroquel 400 mg bedtime AIMS= 0 09/13/24 2. Anxiety Diazepam 5 mg twice day- plan to taper off in near future discuss and educated on rx options Cymbalta 60 mg daily in am educated patient on why Benzo and control sleep rx should not be taken together and respiratory risk 3. Insomnia patient will see PCP 09/14/24 and discuss sleep study obtain labs PCP Ambien 5 mg bedtime Trazodone 50 mg at bedtime- helps sleep sleep hygeine education educated patient Benzo and control sleep rx should not be taken together and respiratory risk discuss Ambien and discuss rx options for sleep Ambien Complex Sleep Behaviors complex sleep behaviors may occur, incl. sleep-walking, sleep-driving, and engaging in other activities while not fully awake; may result in serious injuries, incl. ; D/C immediately if pt experiences a complex sleep behavior 4. OCD 5. Agitated Depakote 500 mg - 2 tabs bedtime labs ordered last visit educated on all rx 6.elevated blood pressure educated on healthy b/p 120/80 monitor b/p at home refer to PCP, heart healthy diet and excise limit salt intake limit soda intake and caffiene increase water 5. vaping Smoking Education Do not smoke. Nicotine and other chemicals in cigarettes and cigars can cause lung damage. Ask your healthcare provider for information if you currently smoke and need help to quit. E-cigarettes or smokeless tobacco still contain nicotine. Talk to your healthcare provider before you use these products. education on decrease to stopping nicotine products and stop smoking hotline given -Quit - Yes [place] Tobacco Quitline Call a Smoking Quitline The [employer] Smoking Quitline, (7-969-45K-QUIT) Smokefree.gov, which connects you with your State's Quitline, (3-748-PRQCBGE) [facility] Smoking Quit[facility], (9-623-NKSHCAD) Discussed and educated pt regarding benzodiazepines are generally not intended for prolonged use and that use can cause tolerance, dependence, depression, and associated memory issues including dementias (this list is not exhaustive). Benzodiazepine use is generally not recommended concurrently with pain medications and/or other controlled substances educated on all medications, benefits, side effects and risk, and educated on depression, anxiety, and ADHD, mood d/o and educated on compliance of medications, metabolic and movement d/o education appointment is, continue therapy discussion with patient about course of treatment and patient instructions. education on serotonin syndrome SSRI/SNRI side effects discussed including but not limited to, gastric upset, nausea, vomiting, diarrhea and/or constipation, weight changes, sexual side effects including loss of libido, increased suicidal thoughts/behavior s in children and young adults, and serotonin syndrome. Second generation antipsychotics (SGAs) have metabolic syndrome issues with weight gain, increase in prolactin, increased waist circumference, increased lipids, and increased glucose. Thus routine monitoring of weight, metabolic labs, etc. is indicated. A general rank ordering of antipsychotics that have the greatest to the least risk of metabolic effects is olanzapine, quetiapine, risperidone, ziprasidone, and aripiprazole. However, weight gain can occur with all of these drugs and considerable variability exists among patients receiving the same drug regarding the risk of metabolic effects. Anti-psychotic agents not only increase the risk of metabolic disorder, they also increase the risk of CVA, akathisia, and movement disorders including EPS or tardive dyskinesia (more common with first generation antipsychotics) and more. Elderly- discussed risks, cognition, sedation, falls, metabolic, movement and atypical antipsychotics carry a black-box warning for increased risk of and cerebrovascular events in dementia. Medication Management and Follow-Up - Plan: - Schedule follow-up appointments every 1-3 months to monitor the patient's response to the medication regimen. - Reinforce the importance of avoiding recreational drug use due to potential neurotoxicity and interactions with prescribed medications. websites http_s://www.nimh .nih.gov/health/t opics/mental-heal th-medications http_s://www.alen .org/About-Mental -Illness/Treatmen ts/Mental-Health- Medications http_s://www.alen .org/About-Mental -Illness/Mental-H ealth-Conditions http_s://psychcen tral.com/depressi on/the-cognitive- nwrrvmgi-dh-xslbf ssion#treatments http__s://www.nim .nih.gov/health/ topics/mental-hea [facility]-medications http__s://www.nam i.org/About-Menta l-Illness/Treatme nts/Mental-Health -Medications http_s://judi.nih .gov/publications /drugfacts/cannab is-marijuana http_s://[employer]/Casero ams-wca-cmcoogsf- marijuana-adhd/ 01/13/2025 Feeling agitated (ICD-10 - R45.1) PATHOLOGY TISSUE (10/24/2024) Esophagus, esophageal biopsies r/o EOE: Squamous mucosa: focal mild esophagitis. Negative for eosinophils, keratosis, organisms, or viral inclusions on H and E. No eosinophils are seen. EGD (10/18/2024) Normal esophagus (biopsied). No endoscopic evidence of EoE. Normal stomach. Normal examined duodenum. No immediate complications. Recommendation: Advance diet as tolerated.. 1. Depression vs Bipolar II refer to therapy HX ECT 1. Depression improved tinnitus and agitation/irritab le- off Wellbutrin Seroquel 400 mg bedtime AIMS= 0 09/13/24 2. Anxiety Diazepam 5 mg twice day- plan to taper off in near future discuss and educated on rx options Cymbalta 60 mg daily in am educated patient on why Benzo and control sleep rx should not be taken together and respiratory risk 3. Insomnia patient will see PCP 09/14/24 and discuss sleep study obtain labs PCP Ambien 5 mg bedtime Trazodone 50 mg at bedtime- helps sleep sleep hygeine education educated patient Benzo and control sleep rx should not be taken together and respiratory risk discuss Ambien and discuss rx options for sleep Ambien Complex Sleep Behaviors complex sleep behaviors may occur, incl. sleep-walking, sleep-driving, and engaging in other activities while not fully awake; may result in serious injuries, incl. ; D/C immediately if pt experiences a complex sleep behavior 4. OCD 5. Agitated Depakote 500 mg - 2 tabs bedtime labs ordered educated on all rx 6.elevated blood pressure educated on healthy b/p 120/80 monitor b/p at home refer to PCP, heart healthy diet and excise limit salt intake limit soda intake and caffiene increase water 5. vaping Smoking Education Do not smoke. Nicotine and other chemicals in cigarettes and cigars can cause lung damage. Ask your healthcare provider for information if you currently smoke and need help to quit. E-cigarettes or smokeless tobacco still contain nicotine. Talk to your healthcare provider before you use these products. education on decrease to stopping nicotine products and stop smoking hotline given -Quit - Yes [place] Tobacco Quitline Call a Smoking Quitline [employer] Smoking Quitline, (9-038-14E-QUIT) Smokefree.gov, which connects you with your State's Quitline, (4-843-CPAIDOY) [facility] Smoking Quitline, (8-401-SGHNTEX) Discussed and educated pt regarding benzodiazepines are generally not intended for prolonged use and that use can cause tolerance, dependence, depression, and associated memory issues including dementias (this list is not exhaustive). Benzodiazepine use is generally not recommended concurrently with pain medications and/or other controlled substances educated on all medications, benefits, side effects and risk, and educated on depression, anxiety, and ADHD, mood d/o and educated on compliance of medications, metabolic and movement d/o education appointment is, continue therapy discussion with patient about course of treatment and patient instructions. education on serotonin syndrome SSRI/SNRI side effects discussed including but not limited to, gastric upset, nausea, vomiting, diarrhea and/or constipation, weight changes, sexual side effects including loss of libido, increased suicidal thoughts/behavior s in children and young adults, and serotonin syndrome. Second generation antipsychotics (SGAs) have metabolic syndrome issues with weight gain, increase in prolactin, increased waist circumference, increased lipids, and increased glucose. Thus routine monitoring of weight, metabolic labs, etc. is indicated. A general rank ordering of antipsychotics that have the greatest to the least risk of metabolic effects is olanzapine, quetiapine, risperidone, ziprasidone, and aripiprazole. However, weight gain can occur with all of these drugs and considerable variability exists among patients receiving the same drug regarding the risk of metabolic effects. Anti-psychotic agents not only increase the risk of metabolic disorder, they also increase the risk of CVA, akathisia, and movement disorders including EPS or tardive dyskinesia (more common with first generation antipsychotics) and more. Elderly- discussed risks, cognition, sedation, falls, metabolic, movement and atypical antipsychotics carry a black-box warning for increased risk of and cerebrovascular events in dementia. Medication Management and Follow-Up - Plan: - Schedule follow-up appointments every 1-3 months to monitor the patient's response to the medication regimen. - Reinforce the importance of avoiding recreational drug use due to potential neurotoxicity and interactions with prescribed medications. websites http_s://www.[facility] .nih.gov/health/t opics/mental-heal th-medications http_s://www.3KeyIt .org/About-Mental -Illness/Treatmen ts/Mental-Health- Medications http_s://www.3KeyIt .org/About-Mental -Illness/Mental-H ealth-Conditions http_s://[employer]/depressi on/the-cognitive- koonnllz-yk-qqtpq ssion#treatments http__s://www.[facility].nih.gov/health/ topics/mental-hea lth-medications http__s://www.Stellaris/About-Menta l-Illness/Treatme nts/Mental-Health -Medications http_s://judi.nih .gov/publications /drugfacts/cannab is-marijuana http_s://www.Coresonic/canntopher xrt-tic-gwsafklk- marijuana-adhd/ 09/13/2024 Primary insomnia (ICD-10 - F51.01) Insomnia: Care Instructions material was published, Learning About Sleeping Well material was published presently on Depakote 500 mg - 2 tabs bedtime, Wellbutrin 150 mg daily in am, Seroquel 400 mg bedtime, Diazepam 5 mg twice day, Ambien 10 mg bedtime 1. Depression vs Bipolar II refer to therapy HX ECT Wellbutrin 150 mg daily in am,- will d/c to r/o tinnitus and help with agitation/irritab le Seroquel 400 mg bedtime AIMS= 0 09/13/24 2. Anxiety Diazepam 5 mg twice day- plan to taper off in near future discuss and educated on rx options add Cymbalta 30 mg daily in am for 2 weeks then increase Cymbalta 60 mg daily in am educated patient on why Benzo and control sleep rx should not be taken together and respiratory risk 3. Insomnia patient will see PCP 09/14/24 and discuss sleep study obtain labs PCP decrease Ambien 5 mg bedtime Add Trazodone 50 mg at bedtime sleep hygeine education educated patient on why Benzo and control sleep rx should not be taken together and respiratory risk discuss Ambien at high dose and discuss rx options for sleep Ambien Complex Sleep Behaviors complex sleep behaviors may occur, incl. sleep-walking, sleep-driving, and engaging in other activities while not fully awake; may result in serious injuries, incl. ; D/C immediately if pt experiences a complex sleep behavior 4. OCD 5. Agitated Depakote 500 mg - 2 tabs bedtime labs ordered educated on all rx 6.elevated blood pressure educated on healthy b/p 120/80 monitor b/p at home refer to PCP, heart healthy diet and excise limit salt intake limit soda intake and caffiene increase water 5. vaping Smoking Education Do not smoke. Nicotine and other chemicals in cigarettes and cigars can cause lung damage. Ask your healthcare provider for information if you currently smoke and need help to quit. E-cigarettes or smokeless tobacco still contain nicotine. Talk to your healthcare provider before you use these products. education on decrease to stopping nicotine products and stop smoking hotline given 131-Quit - Yes [place] Tobacco Quitline Call a Smoking Quitline [employer] Smoking Quitline, (6-881-65E-QUIT) Smokefree.gov, which connects you with your State's Quitline, (8-070-PXMVKIT) [facility] Smoking Quitline, (4-452-CHAOTQK) Discussed and educated pt regarding benzodiazepines are generally not intended for prolonged use and that use can cause tolerance, dependence, depression, and associated memory issues including dementias (this list is not exhaustive). Benzodiazepine use is generally not recommended concurrently with pain medications and/or other controlled substances educated on all medications, benefits, side effects and risk, and educated on depression, anxiety, and ADHD, mood d/o and educated on compliance of medications, metabolic and movement d/o education appointment is, continue therapy discussion with patient about course of treatment and patient instructions. education on serotonin syndrome SSRI/SNRI side effects discussed including but not limited to, gastric upset, nausea, vomiting, diarrhea and/or constipation, weight changes, sexual side effects including loss of libido, increased suicidal thoughts/behavior s in children and young adults, and serotonin syndrome. Second generation antipsychotics (SGAs) have metabolic syndrome issues with weight gain, increase in prolactin, increased waist circumference, increased lipids, and increased glucose. Thus routine monitoring of weight, metabolic labs, etc. is indicated. A general rank ordering of antipsychotics that have the greatest to the least risk of metabolic effects is olanzapine, quetiapine, risperidone, ziprasidone, and aripiprazole. However, weight gain can occur with all of these drugs and considerable variability exists among patients receiving the same drug regarding the risk of metabolic effects. Anti-psychotic agents not only increase the risk of metabolic disorder, they also increase the risk of CVA, akathisia, and movement disorders including EPS or tardive dyskinesia (more common with first generation antipsychotics) and more. Elderly- discussed risks, cognition, sedation, falls, metabolic, movement and atypical antipsychotics carry a black-box warning for increased risk of and cerebrovascular events in dementia. Medication Management and Follow-Up - Plan: - Schedule follow-up appointments every 1-3 months to monitor the patient's response to the medication regimen. - Reinforce the importance of avoiding recreational drug use due to potential neurotoxicity and interactions with prescribed medications. websites http_s://www.nimh .nih.gov/health/t opics/mental-heal th-medications http_s://www.alen .org/About-Mental -Illness/Treatmen ts/Mental-Health- Medications http_s://www.alen .org/About-Mental -Illness/Mental-H ealth-Conditions http_s://psychDirect Hitn [employer]/depressi on/the-cognitive- yixznlwq-at-cbmsq ssion#treatments http__s://www.[facility].nih.gov/health/ topics/mental-hea lth-medications http__s://www.judo i.org/About-Menta l-Illness/Treatme nts/Mental-Health -Medications http_s://judi.nih .gov/publications /drugfacts/cannab is-marijuana http_s://www.lia tudemag.com/leeann ohv-upk-jbeuhvlt- marijuana-adhd/ 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 Depression vs Bipolar II refer to therapy HX ECT improved tinnitus and agitation/irritab le- off Wellbutrin Seroquel 400 mg bedtime AIMS= 0 09/13/24 2. Anxiety Diazepam 5 mg twice day- plan to taper off in near future discuss and educated on rx options Cymbalta 60 mg daily in am educated patient on why Benzo and control sleep rx should not be taken together and respiratory risk 3. Insomnia patient will see PCP 09/14/24 and discuss sleep study obtain labs PCP Ambien 5 mg bedtime Trazodone 50 mg at bedtime- helps sleep sleep hygeine education educated patient Benzo and control sleep rx should not be taken together and respiratory risk discuss Ambien and discuss rx options for sleep Ambien Complex Sleep Behaviors complex sleep behaviors may occur, incl. sleep-walking, sleep-driving, and engaging in other activities while not fully awake; may result in serious injuries, incl. ; D/C immediately if pt experiences a complex sleep behavior 4. OCD 5. Agitated Depakote 500 mg - 2 tabs bedtime labs ordered last visit educated on all rx 6.elevated blood pressure educated on healthy b/p 120/80 monitor b/p at home refer to PCP, heart healthy diet and excise limit salt intake limit soda intake and caffiene increase water 5. vaping Smoking Education Do not smoke. Nicotine and other chemicals in cigarettes and cigars can cause lung damage. Ask your healthcare provider for information if you currently smoke and need help to quit. E-cigarettes or smokeless tobacco still contain nicotine. Talk to your healthcare provider before you use these products. education on decrease to stopping nicotine products and stop smoking hotline given -Quit - Yes [place] Tobacco Quitline Call a Smoking Quitline [employer] Smoking Quitline, (1-761-03L-QUIT) Smokefree.gov, which connects you with your State's Quitline, (6-764-OOAXAXU) [facility] Smoking Quitline, (9-619-QBPPEQM) Discussed and educated pt regarding benzodiazepines are generally not intended for prolonged use and that use can cause tolerance, dependence, depression, and associated memory issues including dementias (this list is not exhaustive). Benzodiazepine use is generally not recommended concurrently with pain medications and/or other controlled substances educated on all medications, benefits, side effects and risk, and educated on depression, anxiety, and ADHD, mood d/o and educated on compliance of medications, metabolic and movement d/o education appointment is, continue therapy discussion with patient about course of treatment and patient instructions. education on serotonin syndrome SSRI/SNRI side effects discussed including but not limited to, gastric upset, nausea, vomiting, diarrhea and/or constipation, weight changes, sexual side effects including loss of libido, increased suicidal thoughts/behavior s in children and young adults, and serotonin syndrome. Second generation antipsychotics (SGAs) have metabolic syndrome issues with weight gain, increase in prolactin, increased waist circumference, increased lipids, and increased glucose. Thus routine monitoring of weight, metabolic labs, etc. is indicated. A general rank ordering of antipsychotics that have the greatest to the least risk of metabolic effects is olanzapine, quetiapine, risperidone, ziprasidone, and aripiprazole. However, weight gain can occur with all of these drugs and considerable variability exists among patients receiving the same drug regarding the risk of metabolic effects. Anti-psychotic agents not only increase the risk of metabolic disorder, they also increase the risk of CVA, akathisia, and movement disorders including EPS or tardive dyskinesia (more common with first generation antipsychotics) and more. Elderly- discussed risks, cognition, sedation, falls, metabolic, movement and atypical antipsychotics carry a black-box warning for increased risk of and cerebrovascular events in dementia. Medication Management and Follow-Up - Plan: - Schedule follow-up appointments every 1-3 months to monitor the patient's response to the medication regimen. - Reinforce the importance of avoiding recreational drug use due to potential neurotoxicity and interactions with prescribed medications. websites http_s://www.nimh .nih.gov/health/t opics/mental-heal th-medications http_s://www.alen .org/About-Mental -Illness/Treatmen ts/Mental-Health- Medications http_s://www.alen .org/About-Mental -Illness/Mental-H ealth-Conditions http_s://psychcen tral.com/depressi on/the-cognitive- zysxyjvi-mc-ilcsx ssion#treatments http__s://www.nim .nih.gov/health/ topics/mental-hea [facility]-medications http__s://www.nam i.org/About-Menta l-Illness/Treatme nts/Mental-Health -Medications http_s://judi.nih .gov/publications /drugfacts/cannab is-marijuana http_s://wwwOperation Supply Drop/canna qxm-puw-eqxzcsti- marijuana-adhd/ 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 Depression vs Bipolar II refer to therapy HX ECT Wellbutrin 150 mg daily in am,- will d/c to r/o tinnitus and help with agitation/irritab le Seroquel 400 mg bedtime AIMS= 0 09/13/24 2. Anxiety Diazepam 5 mg twice day- plan to taper off in near future discuss and educated on rx options add Cymbalta 30 mg daily in am for 2 weeks then increase Cymbalta 60 mg daily in am educated patient on why Benzo and control sleep rx should not be taken together and respiratory risk 3. Insomnia patient will see PCP 09/14/24 and discuss sleep study obtain labs PCP decrease Ambien 5 mg bedtime Add Trazodone 50 mg at bedtime sleep hygeine education educated patient on why Benzo and control sleep rx should not be taken together and respiratory risk discuss Ambien at high dose and discuss rx options for sleep Ambien Complex Sleep Behaviors complex sleep behaviors may occur, incl. sleep-walking, sleep-driving, and engaging in other activities while not fully awake; may result in serious injuries, incl. ; D/C immediately if pt experiences a complex sleep behavior 4. OCD 5. Agitated Depakote 500 mg - 2 tabs bedtime labs ordered educated on all rx 6.elevated blood pressure educated on healthy b/p 120/80 monitor b/p at home refer to PCP, heart healthy diet and excise limit salt intake limit soda intake and caffiene increase water 5. vaping Smoking Education Do not smoke. Nicotine and other chemicals in cigarettes and cigars can cause lung damage. Ask your healthcare provider for information if you currently smoke and need help to quit. E-cigarettes or smokeless tobacco still contain nicotine. Talk to your healthcare provider before you use these products. education on decrease to stopping nicotine products and stop smoking hotline given -Quit - Yes [place] Tobacco Quitline Call a Smoking Quitline [employer] Smoking Quitline, (9-302-78M-QUIT) Smokefree.gov, which connects you with your State's Quitline, (4-331-SGRYUMH) [facility] Smoking Quitline, (5-089-MMQESBN) Discussed and educated pt regarding benzodiazepines are generally not intended for prolonged use and that use can cause tolerance, dependence, depression, and associated memory issues including dementias (this list is not exhaustive). Benzodiazepine use is generally not recommended concurrently with pain medications and/or other controlled substances educated on all medications, benefits, side effects and risk, and educated on depression, anxiety, and ADHD, mood d/o and educated on compliance of medications, metabolic and movement d/o education appointment is, continue therapy discussion with patient about course of treatment and patient instructions. education on serotonin syndrome SSRI/SNRI side effects discussed including but not limited to, gastric upset, nausea, vomiting, diarrhea and/or constipation, weight changes, sexual side effects including loss of libido, increased suicidal thoughts/behavior s in children and young adults, and serotonin syndrome. Second generation antipsychotics (SGAs) have metabolic syndrome issues with weight gain, increase in prolactin, increased waist circumference, increased lipids, and increased glucose. Thus routine monitoring of weight, metabolic labs, etc. is indicated. A general rank ordering of antipsychotics that have the greatest to the least risk of metabolic effects is olanzapine, quetiapine, risperidone, ziprasidone, and aripiprazole. However, weight gain can occur with all of these drugs and considerable variability exists among patients receiving the same drug regarding the risk of metabolic effects. Anti-psychotic agents not only increase the risk of metabolic disorder, they also increase the risk of CVA, akathisia, and movement disorders including EPS or tardive dyskinesia (more common with first generation antipsychotics) and more. Elderly- discussed risks, cognition, sedation, falls, metabolic, movement and atypical antipsychotics carry a black-box warning for increased risk of and cerebrovascular events in dementia. Medication Management and Follow-Up - Plan: - Schedule follow-up appointments every 1-3 months to monitor the patient's response to the medication regimen. - Reinforce the importance of avoiding recreational drug use due to potential neurotoxicity and interactions with prescribed medications. websites http_s://www.nimh .nih.gov/health/t opics/mental-heal th-medications http_s://www.[employer] .[facility]/About-Mental -Illness/Treatmen ts/Mental-Health- Medications http_s://www.[employer]Key[employer] .org/About-Mental -Illness/Mental-H ealth-Conditions http_s://[employer]/depressi on/the-cognitive- clbimqnv-jj-xcypl ssion#treatments http__s://www.[facility].nih.gov/health/ topics/mental-hea lth-medications http__s://www.[employer]/About-Menta l-Illness/Treatme nts/Mental-Health -Medications http_s://judi.nih .gov/publications /drugfacts/cannab is-marijuana http_s://www.C[employer]/canntopher ode-jaa-qmcvslfo- marijuana-adhd/ 10/14/2024 Feeling agitated (ICD-10 - R45.1) 1. Depression vs Bipolar II refer to therapy HX ECT improved tinnitus and agitation/irritab le- off Wellbutrin Seroquel 400 mg bedtime AIMS= 0 09/13/24 2. Anxiety Diazepam 5 mg twice day- plan to taper off in near future discuss and educated on rx options Cymbalta 60 mg daily in am educated patient on why Benzo and control sleep rx should not be taken together and respiratory risk 3. Insomnia patient will see PCP 09/14/24 and discuss sleep study obtain labs PCP Ambien 5 mg bedtime Trazodone 50 mg at bedtime- helps sleep sleep hygeine education educated patient Benzo and control sleep rx should not be taken together and respiratory risk discuss Ambien and discuss rx options for sleep Ambien Complex Sleep Behaviors complex sleep behaviors may occur, incl. sleep-walking, sleep-driving, and engaging in other activities while not fully awake; may result in serious injuries, incl. ; D/C immediately if pt experiences a complex sleep behavior 4. OCD 5. Agitated Depakote 500 mg - 2 tabs bedtime labs ordered last visit educated on all rx 6.elevated blood pressure educated on healthy b/p 120/80 monitor b/p at home refer to PCP, heart healthy diet and excise limit salt intake limit soda intake and caffiene increase water 5. vaping Smoking Education Do not smoke. Nicotine and other chemicals in cigarettes and cigars can cause lung damage. Ask your healthcare provider for information if you currently smoke and need help to quit. E-cigarettes or smokeless tobacco still contain nicotine. Talk to your healthcare provider before you use these products. education on decrease to stopping nicotine products and stop smoking hotline given 936-Quit - Yes [place] Tobacco Quitline Call a Smoking Quitline [employer] Smoking Quitline, (2-581-24K-QUIT) Smokefree.gov, which connects you with your [facility]'s Quitline, (3-400-RQMJHMZ) [facility] Smoking Quitline, (6-967-DJFOOYG) Discussed and educated pt regarding benzodiazepines are generally not intended for prolonged use and that use can cause tolerance, dependence, depression, and associated memory issues including dementias (this list is not exhaustive). Benzodiazepine use is generally not recommended concurrently with pain medications and/or other controlled substances educated on all medications, benefits, side effects and risk, and educated on depression, anxiety, and ADHD, mood d/o and educated on compliance of medications, metabolic and movement d/o education appointment is, continue therapy discussion with patient about course of treatment and patient instructions. education on serotonin syndrome SSRI/SNRI side effects discussed including but not limited to, gastric upset, nausea, vomiting, diarrhea and/or constipation, weight changes, sexual side effects including loss of libido, increased suicidal thoughts/behavior s in children and young adults, and serotonin syndrome. Second generation antipsychotics (SGAs) have metabolic syndrome issues with weight gain, increase in prolactin, increased waist circumference, increased lipids, and increased glucose. Thus routine monitoring of weight, metabolic labs, etc. is indicated. A general rank ordering of antipsychotics that have the greatest to the least risk of metabolic effects is olanzapine, quetiapine, risperidone, ziprasidone, and aripiprazole. However, weight gain can occur with all of these drugs and considerable variability exists among patients receiving the same drug regarding the risk of metabolic effects. Anti-psychotic agents not only increase the risk of metabolic disorder, they also increase the risk of CVA, akathisia, and movement disorders including EPS or tardive dyskinesia (more common with first generation antipsychotics) and more. Elderly- discussed risks, cognition, sedation, falls, metabolic, movement and atypical antipsychotics carry a black-box warning for increased risk of and cerebrovascular events in dementia. Medication Management and Follow-Up - Plan: - Schedule follow-up appointments every 1-3 months to monitor the patient's response to the medication regimen. - Reinforce the importance of avoiding recreational drug use due to potential neurotoxicity and interactions with prescribed medications. websites http_s://www.[facility] .nih.gov/health/t opics/mental-heal th-medications http_s://www.[facility] .org/About-Mental -Illness/Treatmen ts/Mental-Health- Medications http_s://www.alen .org/About-Mental -Illness/Mental-H ealth-Conditions http_s://[employer]/depressi on/the-cognitive- mtvoseri-gt-bizbq ssion#treatments http__s://www.[facility].nih.gov/health/ topics/mental-hea lth-medications http__s://www.judo i.[facility]/About-Menta l-Illness/Treatme nts/Mental-Health -Medications http_s://judi.nih .gov/publications /drugfacts/cannab is-marijuana http_s://www.C[employer]/leeann uea-ocm-anopqiaf- marijuana-adhd/ 09/13/2024 Feeling agitated (ICD-10 - R45.1) presently on Depakote 500 mg - 2 tabs bedtime, Wellbutrin 150 mg daily in am, Seroquel 400 mg bedtime, Diazepam 5 mg twice day, Ambien 10 mg bedtime 1. Depression vs Bipolar II refer to therapy HX ECT Wellbutrin 150 mg daily in am,- will d/c to r/o tinnitus and help with agitation/irritab le Seroquel 400 mg bedtime AIMS= 0 09/13/24 2. Anxiety Diazepam 5 mg twice day- plan to taper off in near future discuss and educated on rx options add Cymbalta 30 mg daily in am for 2 weeks then increase Cymbalta 60 mg daily in am educated patient on why Benzo and control sleep rx should not be taken together and respiratory risk 3. Insomnia patient will see PCP 09/14/24 and discuss sleep study obtain labs PCP decrease Ambien 5 mg bedtime Add Trazodone 50 mg at bedtime sleep hygeine education educated patient on why Benzo and control sleep rx should not be taken together and respiratory risk discuss Ambien at high dose and discuss rx options for sleep Ambien Complex Sleep Behaviors complex sleep behaviors may occur, incl. sleep-walking, sleep-driving, and engaging in other activities while not fully awake; may result in serious injuries, incl. ; D/C immediately if pt experiences a complex sleep behavior 4. OCD 5. Agitated Depakote 500 mg - 2 tabs bedtime labs ordered educated on all rx 6.elevated blood pressure educated on healthy b/p 120/80 monitor b/p at home refer to PCP, heart healthy diet and excise limit salt intake limit soda intake and caffiene increase water 5. vaping Smoking Education Do not smoke. Nicotine and other chemicals in cigarettes and cigars can cause lung damage. Ask your healthcare provider for information if you currently smoke and need help to quit. E-cigarettes or smokeless tobacco still contain nicotine. Talk to your healthcare provider before you use these products. education on decrease to stopping nicotine products and stop smoking hotline given -Quit - Yes [place] Tobacco Quitline Call a Smoking Quitline [employer] Smoking Quitline, (0-006-07Y-QUIT) Smokefree.gov, which connects you with your State's Quitline, (1-796-FNYYHKK) [facility] Smoking Quit[facility], (9-634-QGDEKMZ) Discussed and educated pt regarding benzodiazepines are generally not intended for prolonged use and that use can cause tolerance, dependence, depression, and associated memory issues including dementias (this list is not exhaustive). Benzodiazepine use is generally not recommended concurrently with pain medications and/or other controlled substances educated on all medications, benefits, side effects and risk, and educated on depression, anxiety, and ADHD, mood d/o and educated on compliance of medications, metabolic and movement d/o education appointment is, continue therapy discussion with patient about course of treatment and patient instructions. education on serotonin syndrome SSRI/SNRI side effects discussed including but not limited to, gastric upset, nausea, vomiting, diarrhea and/or constipation, weight changes, sexual side effects including loss of libido, increased suicidal thoughts/behavior s in children and young adults, and serotonin syndrome. Second generation antipsychotics (SGAs) have metabolic syndrome issues with weight gain, increase in prolactin, increased waist circumference, increased lipids, and increased glucose. Thus routine monitoring of weight, metabolic labs, etc. is indicated. A general rank ordering of antipsychotics that have the greatest to the least risk of metabolic effects is olanzapine, quetiapine, risperidone, ziprasidone, and aripiprazole. However, weight gain can occur with all of these drugs and considerable variability exists among patients receiving the same drug regarding the risk of metabolic effects. Anti-psychotic agents not only increase the risk of metabolic disorder, they also increase the risk of CVA, akathisia, and movement disorders including EPS or tardive dyskinesia (more common with first generation antipsychotics) and more. Elderly- discussed risks, cognition, sedation, falls, metabolic, movement and atypical antipsychotics carry a black-box warning for increased risk of and cerebrovascular events in dementia. Medication Management and Follow-Up - Plan: - Schedule follow-up appointments every 1-3 months to monitor the patient's response to the medication regimen. - Reinforce the importance of avoiding recreational drug use due to potential neurotoxicity and interactions with prescribed medications. websites http_s://www.nimh .nih.gov/health/t opics/mental-heal th-medications http_s://www.[facility] .org/About-Mental -Illness/Treatmen ts/Mental-Health- Medications http_s://www.alen .org/About-Mental -Illness/Mental-H ealth-Conditions http_s://psychcen tral.com/depressi on/the-cognitive- mhsldtlb-bh-pqeuj ssion#treatments http__s://www.nim h.nih.gov/health/ topics/mental-hea [facility]-medications http__s://www.nam i.org/About-Menta l-Illness/Treatme nts/Mental-Health -Medications http_s://judi.nih .gov/publications /drugfacts/cannab is-marijuana http_s://[employer]/canntopher plq-kaj-szxccvvm- marijuana-adhd/ 09/13/2024 Other Learning About Depression Screening material was printed, Duloxetine material was published, Quetiapine material was published, Diazepam material was published, Trazodone material was published, Zolpidem material was published, Valproic Acid material was published presently on Depakote 500 mg - 2 tabs bedtime, Wellbutrin 150 mg daily in am, Seroquel 400 mg bedtime, Diazepam 5 mg twice day, Ambien 10 mg bedtime 1. Depression vs Bipolar II refer to therapy HX ECT Wellbutrin 150 mg daily in am,- will d/c to r/o tinnitus and help with agitation/irritab le Seroquel 400 mg bedtime AIMS= 0 09/13/24 2. Anxiety Diazepam 5 mg twice day- plan to taper off in near future discuss and educated on rx options add Cymbalta 30 mg daily in am for 2 weeks then increase Cymbalta 60 mg daily in am educated patient on why Benzo and control sleep rx should not be taken together and respiratory risk 3. Insomnia patient will see PCP 09/14/24 and discuss sleep study obtain labs PCP decrease Ambien 5 mg bedtime Add Trazodone 50 mg at bedtime sleep hygeine education educated patient on why Benzo and control sleep rx should not be taken together and respiratory risk discuss Ambien at high dose and discuss rx options for sleep Ambien Complex Sleep Behaviors complex sleep behaviors may occur, incl. sleep-walking, sleep-driving, and engaging in other activities while not fully awake; may result in serious injuries, incl. ; D/C immediately if pt experiences a complex sleep behavior 4. OCD 5. Agitated Depakote 500 mg - 2 tabs bedtime labs ordered educated on all rx 6.elevated blood pressure educated on healthy b/p 120/80 monitor b/p at home refer to PCP, heart healthy diet and excise limit salt intake limit soda intake and caffiene increase water 5. vaping Smoking Education Do not smoke. Nicotine and other chemicals in cigarettes and cigars can cause lung damage. Ask your healthcare provider for information if you currently smoke and need help to quit. E-cigarettes or smokeless tobacco still contain nicotine. Talk to your healthcare provider before you use these products. education on decrease to stopping nicotine products and stop smoking hotline given -Quit - Yes [place] Tobacco Quitline Call a Smoking Quitline [facility] [employer] Smoking Quitline, (2-450-36L-QUIT) Smokefree.gov, which connects you with your [facility]'s Quitline, (6-612-TANRIMC) [facility] Smoking Quitline, (0-420-PHKWIUZ) Discussed and educated pt regarding benzodiazepines are generally not intended for prolonged use and that use can cause tolerance, dependence, depression, and associated memory issues including dementias (this list is not exhaustive). Benzodiazepine use is generally not recommended concurrently with pain medications and/or other controlled substances educated on all medications, benefits, side effects and risk, and educated on depression, anxiety, and ADHD, mood d/o and educated on compliance of medications, metabolic and movement d/o education appointment is, continue therapy discussion with patient about course of treatment and patient instructions. education on serotonin syndrome SSRI/SNRI side effects discussed including but not limited to, gastric upset, nausea, vomiting, diarrhea and/or constipation, weight changes, sexual side effects including loss of libido, increased suicidal thoughts/behavior s in children and young adults, and serotonin syndrome. Second generation antipsychotics (SGAs) have metabolic syndrome issues with weight gain, increase in prolactin, increased waist circumference, increased lipids, and increased glucose. Thus routine monitoring of weight, metabolic labs, etc. is indicated. A general rank ordering of antipsychotics that have the greatest to the least risk of metabolic effects is olanzapine, quetiapine, risperidone, ziprasidone, and aripiprazole. However, weight gain can occur with all of these drugs and considerable variability exists among patients receiving the same drug regarding the risk of metabolic effects. Anti-psychotic agents not only increase the risk of metabolic disorder, they also increase the risk of CVA, akathisia, and movement disorders including EPS or tardive dyskinesia (more common with first generation antipsychotics) and more. Elderly- discussed risks, cognition, sedation, falls, metabolic, movement and atypical antipsychotics carry a black-box warning for increased risk of and cerebrovascular events in dementia. Medication Management and Follow-Up - Plan: - Schedule follow-up appointments every 1-3 months to monitor the patient's response to the medication regimen. - Reinforce the importance of avoiding recreational drug use due to potential neurotoxicity and interactions with prescribed medications. websites http_s://www.[facility] .nih.gov/health/t opics/mental-heal th-medications http_s://www.[facility] .org/About-Mental -Illness/Treatmen ts/Mental-Health- Medications http_s://www.[employer]KeyIt .[employer] [facility]/About-Mental -Illness/Mental-H ealth-Conditions http_s://[employer]/depressi on/the-cognitive- tlahwwud-nf-hdsai ssion#treatments http__s://www.[facility].nih.gov/health/ topics/mental-hea lth-medications http__s://www.[employer]/About-Menta l-Illness/Treatme nts/Mental-Health -Medications http_s://judi.nih .gov/publications /drugfacts/cannab is-marijuana http_s://www.[employer]/leeann dvz-mxn-mzjktvmz- marijuana-adhd/ 10/14/2024 Other High Blood Pressure: Care Instructions material was published, Learning About High Blood Pressure material was published 1. Depression vs Bipolar II refer to therapy HX ECT improved tinnitus and agitation/irritab le- off Wellbutrin Seroquel 400 mg bedtime AIMS= 0 09/13/24 2. Anxiety Diazepam 5 mg twice day- plan to taper off in near future discuss and educated on rx options Cymbalta 60 mg daily in am educated patient on why Benzo and control sleep rx should not be taken together and respiratory risk 3. Insomnia patient will see PCP 09/14/24 and discuss sleep study obtain labs PCP Ambien 5 mg bedtime Trazodone 50 mg at bedtime- helps sleep sleep hygeine education educated patient Benzo and control sleep rx should not be taken together and respiratory risk discuss Ambien and discuss rx options for sleep Ambien Complex Sleep Behaviors complex sleep behaviors may occur, incl. sleep-walking, sleep-driving, and engaging in other activities while not fully awake; may result in serious injuries, incl. ; D/C immediately if pt experiences a complex sleep behavior 4. OCD 5. Agitated Depakote 500 mg - 2 tabs bedtime labs ordered last visit educated on all rx 6.elevated blood pressure educated on healthy b/p 120/80 monitor b/p at home refer to PCP, heart healthy diet and excise limit salt intake limit soda intake and caffiene increase water 5. vaping Smoking Education Do not smoke. Nicotine and other chemicals in cigarettes and cigars can cause lung damage. Ask your healthcare provider for information if you currently smoke and need help to quit. E-cigarettes or smokeless tobacco still contain nicotine. Talk to your healthcare provider before you use these products. education on decrease to stopping nicotine products and stop smoking hotline given 013-Quit - Yes [place] Tobacco Quitline Call a Smoking Quitline [facility] [employer] Smoking Quitline, (1-678-50Z-QUIT) Smokefree.gov, which connects you with your State's Quitline, (0-210-DCXQMKT) [facility] Smoking Quitline, (5-776-TBJYAVE) Discussed and educated pt regarding benzodiazepines are generally not intended for prolonged use and that use can cause tolerance, dependence, depression, and associated memory issues including dementias (this list is not exhaustive). Benzodiazepine use is generally not recommended concurrently with pain medications and/or other controlled substances educated on all medications, benefits, side effects and risk, and educated on depression, anxiety, and ADHD, mood d/o and educated on compliance of medications, metabolic and movement d/o education appointment is, continue therapy discussion with patient about course of treatment and patient instructions. education on serotonin syndrome SSRI/SNRI side effects discussed including but not limited to, gastric upset, nausea, vomiting, diarrhea and/or constipation, weight changes, sexual side effects including loss of libido, increased suicidal thoughts/behavior s in children and young adults, and serotonin syndrome. Second generation antipsychotics (SGAs) have metabolic syndrome issues with weight gain, increase in prolactin, increased waist circumference, increased lipids, and increased glucose. Thus routine monitoring of weight, metabolic labs, etc. is indicated. A general rank ordering of antipsychotics that have the greatest to the least risk of metabolic effects is olanzapine, quetiapine, risperidone, ziprasidone, and aripiprazole. However, weight gain can occur with all of these drugs and considerable variability exists among patients receiving the same drug regarding the risk of metabolic effects. Anti-psychotic agents not only increase the risk of metabolic disorder, they also increase the risk of CVA, akathisia, and movement disorders including EPS or tardive dyskinesia (more common with first generation antipsychotics) and more. Elderly- discussed risks, cognition, sedation, falls, metabolic, movement and atypical antipsychotics carry a black-box warning for increased risk of and cerebrovascular events in dementia. Medication Management and Follow-Up - Plan: - Schedule follow-up appointments every 1-3 months to monitor the patient's response to the medication regimen. - Reinforce the importance of avoiding recreational drug use due to potential neurotoxicity and interactions with prescribed medications. websites http_s://www.nim .nih.gov/health/t opics/mental-heal th-medications http_s://www.alen .org/About-Mental -Illness/Treatmen ts/Mental-Health- Medications http_s://www.alen .org/About-Mental -Illness/Mental-H ealth-Conditions http_s://psychcen tral.com/depressi on/the-cognitive- inrukcql-zr-ghthn ssion#treatments http__s://www.[facility].nih.gov/health/ topics/mental-hea lth-medications http__s://www.judo i.org/About-Menta l-Illness/Treatme nts/Mental-Health -Medications http_s://judi.nih .gov/publications /drugfacts/cannab is-marijuana http_s://www.Coresonic/[employer] qqh-mza-ytpxagkc- marijuana-adhd/ 01/13/2025 Other High Blood Pressure: Care Instructions material was published, Learning About High Blood Pressure material was published Preventing Depression From Coming Back: Care Instructions material was published, Learning About How to Get Help During a Mental Health Crisis material was published, Learning About Depression material was published, Learning About Depression Screening material was published, Seasonal Affective Disorder: Care Instructions material was published DASH Diet: Care Instructions material was published, Learning About Low-Fat Eating material was published, Learning About Low-Carbohydrat e Diets material was published, Learning About the Mediterranean Diet material was published, Learning About Healthy Weight material was published PATHOLOGY TISSUE (10/24/2024) Esophagus, esophageal biopsies r/o EOE: Squamous mucosa: focal mild esophagitis. Negative for eosinophils, keratosis, organisms, or viral inclusions on H and E. No eosinophils are seen. EGD (10/18/2024) Normal esophagus (biopsied). No endoscopic evidence of EoE. Normal stomach. Normal examined duodenum. No immediate complications. Recommendation: Advance diet as tolerated.. 1. Depression vs Bipolar II refer to therapy HX ECT 1. Depression improved tinnitus and agitation/irritab le- off Wellbutrin Seroquel 400 mg bedtime AIMS= 0 09/13/24 2. Anxiety Diazepam 5 mg twice day- plan to taper off in near future discuss and educated on rx options Cymbalta 60 mg daily in am educated patient on why Benzo and control sleep rx should not be taken together and respiratory risk 3. Insomnia patient will see PCP 09/14/24 and discuss sleep study obtain labs PCP Ambien 5 mg bedtime Trazodone 50 mg at bedtime- helps sleep sleep hygeine education educated patient Benzo and control sleep rx should not be taken together and respiratory risk discuss Ambien and discuss rx options for sleep Ambien Complex Sleep Behaviors complex sleep behaviors may occur, incl. sleep-walking, sleep-driving, and engaging in other activities while not fully awake; may result in serious injuries, incl. ; D/C immediately if pt experiences a complex sleep behavior 4. OCD 5. Agitated Depakote 500 mg - 2 tabs bedtime labs ordered educated on all rx 6.elevated blood pressure educated on healthy b/p 120/80 monitor b/p at home refer to PCP, heart healthy diet and excise limit salt intake limit soda intake and caffiene increase water 5. vaping Smoking Education Do not smoke. Nicotine and other chemicals in cigarettes and cigars can cause lung damage. Ask your healthcare provider for information if you currently smoke and need help to quit. E-cigarettes or smokeless tobacco still contain nicotine. Talk to your healthcare provider before you use these products. education on decrease to stopping nicotine products and stop smoking hotline given Quit - Yes [place] Tobacco Quitline Call a Smoking Quitline The National [employer] [place] Smoking Quitline, (4-536-84D-QUIT) Smokefree.gov, which connects you with your State's Quitline, (3-800-PIEEOZK) [facility] Smoking Quitline, (6-112-STSWORZ) Discussed and educated pt regarding benzodiazepines are generally not intended for prolonged use and that use can cause tolerance, dependence, depression, and associated memory issues including dementias (this list is not exhaustive). Benzodiazepine use is generally not recommended concurrently with pain medications and/or other controlled substances educated on all medications, benefits, side effects and risk, and educated on depression, anxiety, and ADHD, mood d/o and educated on compliance of medications, metabolic and movement d/o education appointment is, continue therapy discussion with patient about course of treatment and patient instructions. education on serotonin syndrome SSRI/SNRI side effects discussed including but not limited to, gastric upset, nausea, vomiting, diarrhea and/or constipation, weight changes, sexual side effects including loss of libido, increased suicidal thoughts/behavior s in children and young adults, and serotonin syndrome. Second generation antipsychotics (SGAs) have metabolic syndrome issues with weight gain, increase in prolactin, increased waist circumference, increased lipids, and increased glucose. Thus routine monitoring of weight, metabolic labs, etc. is indicated. A general rank ordering of antipsychotics that have the greatest to the least risk of metabolic effects is olanzapine, quetiapine, risperidone, ziprasidone, and aripiprazole. However, weight gain can occur with all of these drugs and considerable variability exists among patients receiving the same drug regarding the risk of metabolic effects. Anti-psychotic agents not only increase the risk of metabolic disorder, they also increase the risk of CVA, akathisia, and movement disorders including EPS or tardive dyskinesia (more common with first generation antipsychotics) and more. Elderly- discussed risks, cognition, sedation, falls, metabolic, movement and atypical antipsychotics carry a black-box warning for increased risk of and cerebrovascular events in dementia. Medication Management and Follow-Up - Plan: - Schedule follow-up appointments every 1-3 months to monitor the patient's response to the medication regimen. - Reinforce the importance of avoiding recreational drug use due to potential neurotoxicity and interactions with prescribed medications. websites http_s://www.nim .nih.gov/health/t opics/mental-heal th-medications http_s://www.alen .org/About-Mental -Illness/Treatmen ts/Mental-Health- Medications http_s://www.alen .org/About-Mental -Illness/Mental-H ealth-Conditions http_s://[employer]/depressi on/the-cognitive- rdfogwjv-zf-ndwuz ssion#treatments http__s://www.[facility].nih.gov/health/ topics/mental-hea lth-medications http__s://www.judo i.[employer]/About-Menta l-Illness/Treatme nts/Mental-Health -Medications http_s://judi.nih .gov/publications /drugfacts/cannab is-marijuana http_s://www.Coresonic/canna sbr-wki-uihlimco- marijuana-adhd/ Plan Of Treatment Future Test Test Name Order Date Liver Function Test (LFT) 09/13/2024 LIPID PANEL WITH REFLEX TO DIRECT LDL (1 4852) 09/13/2024 COMPREHENSIVE METABOLIC PANEL (85865) CBC (INCLUDES DIFF/PLT) (6399) HEMOGLOBIN A1c (496) 09/13/2024 TSH W/REFLEX TO FT4 (71448) 09/13/2024 VALPROIC ACID (916) 09/13/2024 LIPID PANEL WITH REFLEX TO DIRECT LDL (1 4852) 01/13/2025 COMPREHENSIVE METABOLIC PANEL (30717) CBC (INCLUDES DIFF/PLT) (6399) HEMOGLOBIN A1c (496) 01/13/2025 TSH W/REFLEX TO FT4 (35471) 01/13/2025 VALPROIC ACID (916) 01/13/2025 Next Appt Details Provider Name:Sheila Gordon , 04/12/2025 03:45:00 PM, [address], [address], [place], [address], Insurance Providers Payer Name Payer Address Payer Phone Subscriber Number Group Number Insured Name Patient Relationship to Insured Coverage Start Date Coverage End Date [facility] [address] [place] [phone] [id number] Jagruti Domingo Self - patient is the insured [place] [address] [address] [place] [phone] [id number] Jagruti Domingo Self - patient is the insured Medical (General) History Medical History History ICD Code HTN HLD MEMORY LOSS Heart attack 02/15/2009 GERD DM DENICE MDDR AGITATION Insomnia Surgical History Surgery Date(Month/Year) section x 3 2 knee surgeries - right 2 back surgery - disks 1 neck surgery - cage put in Hospitalization History Reason Date(Month/Year) was having problems with her esophagus -had tests ran , states weak muscles 03/2024
--- OUTSIDE RECORDS SUMMARY | 2025-02-27 03:54 | XMS_ITS | Encounter Summary ---
Author Organization [facility] Address [address] [place] [address] Care Team Providers Care Silk Screen Processor Name Role Phone Unavailable Primary Care Provider Unavailabl e Encounter Details Date Type Department Care Team (Latest Contact Info) Description 03/23/2018 Abstract [facility] , Denise Alvarado MD [...]
--- OUTSIDE RECORDS SUMMARY | 2025-02-27 03:54 | XMS_ITS | Clinical Summary ---
Author Organization [facility] Building [facility] Address [address] [place] [address] Care Team Providers Care Casing Runner Name Role Phone Rhona Rivas Primary Care Provider [phone] Allergies Active Allergy Reactions Criticality Noted Date [...] enteric coated tabletIndications:C oronary artery disease involving cahto coronary artery of cahto heart without angina pectoris Take 1 tablet [...] times a day with meals 04/09/20 21 Active evolocumab (REPATHA) syringe syringe Inject 1 mL (140 mg total) under the skin every 14 (fourteen) days 2 mL 12/27/19 22 Active Additional Information Patient not taking.Reported on 12/23/2023 metoprolol tartrate (LOPRESSOR) 25 mg immediate release tabletIndications:C oronary atherosclerosis of cahto coronary artery,Coronary artery disease involving cahto coronary artery of cahto heart without angina pectoris,Essential hypertension,Palpit ations TAKE 1 TABLET(25 MG) BY MOUTH TWICE DAILY 180 tablet 1 03/24/20 22 Active atorvastatin (LIPITOR) 40 mg tabletIndications:C oronary atherosclerosis of cahto coronary artery,Coronary artery disease involving cahto coronary artery of cahto heart without angina pectoris,Mixed hyperlipidemia Take 1 [...] CT ordered. Coronary artery disease invo lving cahto coronary artery of cahto heart without angina pectoris 04/01/2017 Overview (04/01/2017): [...] recommendations Assessment & Plan (04/01/2017 6:42 PM COLLAR SHAPER OPERATOR): Inferior STEMI 2008, status post 3.5 mm JONNIE to the occluded mid large RCA by Dr. Golden at [facility]. Had a 40% circumflex stenosis but not much other disease. Coronary artery disease is stable without angina Essential hypertension 04/01/2017 Assessment & Plan (12/23/2023 4:18 PM CDT): Chronic. Controlled. Continue metoprolol 25 mg daily. Assessment & Plan (04/01/2017 6:35 PM COLLAR SHAPER OPERATOR): Hypertension is at goal Medical therapy Mixed [...] 10/12/2019 Assessment & Plan (04/01/2017 6:34 PM COLLAR SHAPER OPERATOR): Now using E cigarettes Positive antinuclear antibody [...] History Date Comments Asthma Asthma Chronic obstructive pulmonary disease COPD Hx Other Medical Bipolar Disorde r [...] staff should administer the PHQ-9) 2 12/23/2023 PHQ-9 Answer Date Recorded PHQ-9 Total Score 8 12/23/2023 Comments No Sex and Gender Information Value Date Recorded Sex Assigned at Not on file Legal Sex Female 10:57 AM COLLAR SHAPER OPERATOR Gender Identity Not on file Sexual Orientation [...] P M CDT Height 160 cm (5' 3) 12/23/2023 2:16 PM CDT Body Mass Index 34.83 12/23/2023 2:16 PM CDT Plan of Treatment Health Maintenance Due Date Last Done Comments Albumin Creatinine Ratio, Urine 1960 Breast Cancer Screening-Mammogram 1960 Colon Cancer Screening-Colonoscopy 1960 Hemoglobin A1C 1960 Dilated Eye Exam 1960 Foot Exam 1960 Regular Well Visit/Exam 18-64 1978 Pneumococcal vaccine <65 (1 of 2 - PCV) 12/19/1979 Lung Cancer Screening 2010 Zoster Vaccine (1 of 2) 2010 Lipid Panel 04/09/2022 04/09/2021, 05/3 05/2018, 04/01/2017, Additional history exists Depression Screening 12/22/2024 12/23/2023, 12/23/19 24 eGFR 12/27/2024 12/28/2023 Influenza Vaccine (#1) 2025 05/17/2015, 2013 DTaP/Tdap/Td Vaccine (2 - Td or Tdap) 06/12/2028 06/12/2018 Hepatitis B Screening Completed 10/24/2013 Hepatitis C Screening Completed 10/24/2013 Procedures Procedure Name Priority Date/Time Associated Diagnosis Comments COMPREHENSIVE METABOLIC PANEL Routine 12/28/2023 12:41 PM CDT POCT LIPID PANEL Routine 04/09/2021 3:06 PM COLLAR SHAPER OPERATOR Lipid screening SERUM HEPATITIS C AB Routine [...] - 36 Units/L EXTERNAL LAB SCRIBED eGFR >60 0 - 0 EXTERNAL LAB Blood Historical Provider LAB BLOOD ORDERABLES Yasmin valerio Result EXTERNAL LAB * POCT lipid panel (04/09/2021 3:06 PM COLLAR SHAPER OPERATOR) Cholesterol, POC 191 mg/dL Comment:GLU = 100 HDL, POC 49 mg/dL Triglycerides, POC 229 mg/dL LDL Cholesterol POC 96 mg/dL Chol/HDL Ratio, POC 3.9 Non-HDL Cholesterol, POC 142 mg/dL Cholesterol Total, POC 191 mg/dL Capillary blood 04/09/2021 3 :06 PM COLLAR SHAPER OPERATOR Santa Wheeler MD POINT OF CARE TEST ORDERABL ES Final Result * Serum Hepatitis C ab (10/24/2013 1:57 PM CDT) HCV ab Negative NEG HISTORICAL RESULTS Serum 10/24/2013 1:57 PM CDT Narrative HISTORICAL RESULTS - 10/25/2013 6:28 AM CDT Interpretive Data If confirmation is required, call Laboratory Customer Service to request sample to be sent to [facility] for Hepatitis C Virus (HCV) RNA Detection and Quantitation by Real-Time Reverse Communication Skills Instructor-PCR (RT-PCR). Current interpretive data was last revised on 2011 us Emely Burr MD LAB BLOOD ORDER TREVIN Final Result Performing Organization Address City/[facility]/ZIP Co de Phone Number HISTORICAL RESULTS from Last 3 Months or Most Recently Relevant to Health Maintenance Insurance IDPA IDPA [facility] MEDICARE ADVANTAGE Care Teams Casing Runner Relationship Specialty Start Date End Date Rhona Rivas PA [facility] [address] [place] [address] PCP - General Family Medicine 12/22/23
[2025-02-27] MEDS: LACTATED RINGERS 1,000 ML 30 ML IV CONT (11:35)
--- NOTE | 2025-02-27 12:44 | WPDANESEPPF ---
Anes - Initial Pre Proc Eval Procedure: Operation Date: 02/27/25 13:00 Proposed Procedures p Excision Right Supraclavicular Fossa Mass - Bernard Leslie MD Date/Time: 02/27/25 12:44 Surgeon: Bernard Leslie MD Pre Op Diagnosis: rt supraclavicular fossa subq mass Patient Data Age: 64 Gender: F Height: 1.61 m Weight: 85.2 kg Last Vital Signs Temp 36.1 C L 02/27/25 11:00 Pulse 99 02/27/25 11:00 Resp 16 02/27/25 11:00 BP 131/78 02/27/25 11:00 Pulse Ox 95 02/27/25 11:00 O2 Del Method Room Air 02/27/25 11:00 Allergies Allergy/AdvReac Type Severity Reaction Status Date / Time No Known Allergies Allergy Verified 02/27/25 11:43 Home Medications ?Medication ?Instructions ?Recorded ?Confirmed ?Type divalproex 500 mg tablet,extended 1,000 mg PO HS 06/13/19 02/27/25 History release 24 hr quetiapine 400 mg tablet 400 mg PO QHS 01/09/22 02/27/25 History aspirin 81 mg tablet,delayed 81 mg PO DAILY 07/08/22 02/27/25 History release (Adult Low Dose Aspirin) triamcinolone acetonide 0.1 % 1 applic topical BID #30 grams 09/10/23 02/22/25 Rx topical cream omeprazole 40 mg capsule,delayed See Rx Instructions .Route 04/06/24 02/27/25 Rx release .COMPLEX #90 caps acetaminophen 325 mg tablet 650 mg PO Q6H PRN pain or fever 04/19/24 02/22/25 History cholecalciferol (vitamin D3) 50 50 mcg PO DAILY 04/19/24 02/27/25 History mcg (2,000 unit) capsule duloxetine 30 mg capsule,delayed 30 mg PO DAILY 09/14/24 02/27/25 History release ibuprofen 800 mg tablet 800 mg PO BID PRN pain #30 tabs 09/14/24 02/22/25 Rx trazodone 50 mg tablet 50 mg PO QHS 09/14/24 02/27/25 History zolpidem 10 mg tablet 5 mg PO HS 09/14/24 02/27/25 History metformin 1,000 mg tablet See Rx Instructions .Route 05/22/25 10/13/25 Rx .COMPLEX #180 tabs oxybutynin chloride 5 mg tablet 5 mg PO BID #90 tabs 10/06/24 02/27/25 Rx atorvastatin 40 mg tablet 40 mg PO DAILY #90 tabs 12/08/24 02/27/25 Rx metoprolol tartrate 25 mg tablet 25 mg PO DAILY #90 tabs 12/08/24 02/27/25 Rx diazepam 5 mg tablet 5 mg PO BID 02/02/25 02/27/25 History Laboratory Tests 02/27/25 11:17 POC Capillary Glucose 134 H mg/dl (65-105) Patient hx anesthesia problems: none Family hx anesthesia problems: none Results Review: All pre-operative results and documents have been reviewed as part of the pre-operative evaluation. [facility] Past Medical History Medical History Transaminitis Family history of abdominal aortic aneurysm (AAA) Obesity Coronary artery disease Osteoarthritis Mumps Measles Anxiety Depression Bipolar 1 disorder Liver disease Type 2 diabetes mellitus Arthritis Melena GERD (gastroesophageal reflux disease) Pneumonia Asthma Hypertension Hypercholesterolemia Myocardial infarction 2008 with stent Surgical History Surgical History H/O: section x3 History of knee surgery History of orthopedic surgery Back x2, cervical x 1 H/O: hysterectomy Family History Family History Mother Aortic aneurysm Father Patient's father is in good health Social History Social History Smoking packs per day: 2 Smoking cigarettes per day: 40.0 Years smoked: 38 Smoking pack-years: 76.00 Smoking status: Current every day smoker Tobacco type: e-cigarettes/vaping Smoking end date: 05/18/12 Additional smoking assessment comments: vape may contain nicotine per patient Alcohol intake: never Substance use: never Substance use type: does not use Lack of Transportation: No Lack of Food: Never True Current Housing: I Have Housing Concerned About Future Housing: No Difficulty Paying Gas/Electric Bills: No Difficulty Paying for Meds: No Currently Unemployed: No Education: High School Diploma/GED Difficulty w/ Childcare or Family Care: No Living arrangements: alone Gender identity (if verbalized by the patient): Female Spiritual care concerns: No Anes - Eval Final PreProcedure Day of Procedure 02/27/25 12:44 Patient weight: obese Heart: regular rate and rhythm Lungs: clear to auscultation Airway: Mallampati scale class II Neurological: alert and oriented Last oral intake: >/= 8 hours ASA classification: III Emergent: no Anesthetic plan: proceed Anesthesia type and monitoring: general LMA and standard monitoring Results Review: All pre-operative results and documents have been reviewed as part of the pre-operative evaluation. Informed Consent: The patient's anesthetic plan and its attendant risks and benefits were discussed with the patient/family/POA. Questions were solicited and answers provided to the satisfaction of the patient/family/POA.
--- NOTE | 2025-02-27 13:15 | WPDHPUPDATE1 ---
History and Physical Update Update Date/Time: 02/27/25 13:15 History and Physical has been reviewed, including an updated exam of the patient. There are NO changes in the patient's condition. Risks, benefits, and alternatives have been discussed and questions answered. Patient agrees to proceed with procedure.
[2025-02-27] MEDS: ceFAZolin 2 GM in SODIUM CHLORIDE 0.9% IV 50 ML 100 ML IVPB (13:18)
[2025-02-27] MEDS: LIDO 1%/EPINEPHRINE 1:100,000 20 ML VIAL 30 ML INFILTRATE (13:34)
--- NOTE | 2025-02-27 13:44 | S_PTH ---
PATIENT: Jagruti Domingo LOC: [facility] U#:[id number] AGE/SX: 64/F ROOM: RE02/27/[address]: Bernard Leslie MD : 1960 BED: DIS: 02/27/2025 SPEC #: [id number] RECD: 02/28/25 08:20 STATUS: JOSEPHINE REQ #: [id number] SINA: 02/27/25 13:[address]: Bernard Leslie DEPT: [facility] Surgical RECD BY: Jose Manuel Maldonado ENTERED: 02/28/25 08:20 SP TYPE: Surgical OTHR DR: Gaurav Rowe DO Tissues: A - Lipoma Procedures: Hematoxylin and Eosin Stain Gross and Microscopic Level 3
--- NOTE | 2025-02-27 14:16 | P.OP_ITS ---
Procedure Note - Detailed Date of Procedure 02/27/25 Pre-op Diagnosis Right supraclavicular fossa subcutaneous mass Post-op Diagnosis Other (Right supraclavicular fossa lipoma) Procedure Performed Excision right supraclavicular fossa lipoma (4x3cm) Surgeon Bernard Leslie MD Home Teaching Grades 7 And 8 Teacher Neal Woodruff SA Anesthesia General Indications Patient is a 54-year-old female who has had a 3 year long history of a slowly enlarging subcutaneous mass in the right supraclavicular fossa area. Does not s eem to be a lymph node. On examination feels more consistent with a lipoma. She presents now for excision of the mass. Findings Patient well incapsulated lipomatous mass consistent with a lipoma in the superficial subcutaneous tissues of the right supraclavicular fossa. It measured 4x3cm. Description of Procedure After informed consent was obtained patient brought to the operating room she was placed supine position and general LMA anesthesia was administered. The area the right supraclavicular fossa region was then prepped and draped usual sterile fashion. Time-out was then performed correctly identifying the patient as well as procedure to be performed. Site marking was verified. She was given perioperative IV antibiotics. I then proceeded to anesthetize the area utilizing 1% lidocaine mixed with 0.5% Marcaine in a 50 50 mixture with some epinephrine. A vertical incision was then made over the top of the mass with a scalpel and then dissection was carried through the dermis skin with a scalpel. Once into the subcutaneous tissues I dissected with electrocautery to encounter the capsule to the mass. I started to dissect around the capsule the mass with electrocautery and became biliary clear this was just a well encapsulated benign-appearing lipoma. With a combination of blunt finger electrocautery dissection I completely excised out the mass from the superficial subcutaneous tissues of the right supraclavicular fossa. The whole lipoma was removed. It was sent to pathology for examination. It measured 4x3cm. I then irrigated incision sterile saline solution hemostasis was good. I then close incision utilizing layers of interrupted 3-0 Vicryl sutures in the subcutaneous tissues. The skin edges were then approximated utilizing a running subcuticular 4-0 Monocryl suture. Incision was then cleaned the skin glue was applied. The patient tolerated the procedure well no complications. All sponges, needles, and instrument counts were correct at the end procedure. EBL was _5__cc. The patient was awakened and taken to recovery in stable and satisfactory condition. Implants None Estimated Blood Loss 5 Drains No Packing No Pathology Yes (Lipoma to pathology) Complications No immediate complications Condition Stable Disposition PACU [facility] Billing Surgery - Charge Forward: Surgery Billing
== END 2025-02-27 15:46 | disposition home or self-care (01) ==
PROVIDERS: PCP Internal Medicine; Visit Provider Surgery
PROC: (CPT 21552; principal; 2025-02-27 13:00)
DX: D17.1 Benign lipomatous neoplasm of skin and subcutaneous tissue of trunk (principal); I10 Essential (primary) hypertension; E11.9 Type 2 diabetes mellitus without complications; K21.9 Gastro-esophageal reflux disease without esophagitis; I25.10 Atherosclerotic heart disease of native coronary artery without angina pectoris; F41.9 Anxiety disorder, unspecified; J45.909 Unspecified asthma, uncomplicated; E78.00 Pure hypercholesterolemia, unspecified; I25.2 Old myocardial infarction; F31.9 Bipolar disorder, unspecified; M19.90 Unspecified osteoarthritis, unspecified site; K76.9 Liver disease, unspecified; F17.290 Nicotine dependence, other tobacco product, uncomplicated; E66.9 Obesity, unspecified; Z68.32 Body mass index [BMI] 32.0-32.9, adult; Z79.82 Long term (current) use of aspirin; Z79.1 Long term (current) use of non-steroidal anti-inflammatories (NSAID); Z79.84 Long term (current) use of oral hypoglycemic drugs; Z79.899 Other long term (current) drug therapy; Z98.890 Other specified postprocedural states; Z98.1 Arthrodesis status; Z95.5 Presence of coronary angioplasty implant and graft; Z82.49 Family history of ischemic heart disease and other diseases of the circulatory system
CPT/HCPCS: 21552; 82948; 88304; J0690; A9270; J1100; J2003; J2004; J2250; J2405; J2704; J3010; J7120